=== PATIENT | male | born 1950 | race Two or more races ===

== ENCOUNTER 2021-01-28 21:15 | Observation (INO) | payer OTHER, MEDICARE ==
[~2021-01-28] VITALS: Ht 165.1 cm; Wt 73.6 kg
[2021-01-28 21:39] LABS: BASOPHILS # (AUTO) 0.1 X10'3 (0-0.2); BASOPHILS % (AUTO) 0.4 % (0-1); EOSINOPHILS # (AUTO) 0.5 X10'3 (0-0.9); EOSINOPHILS % (AUTO) 4.3 % (0-6); HEMATOCRIT 40.5 % (42.0-52.0); HEMOGLOBIN 13.8 g/dl (14.0-17.9); LYMPHOCYTES # (AUTO) 2.9 X10'3 (1.1-4.8); LYMPHOCYTES % (AUTO) 22.6 % (21-51); MEAN CORPUSCULAR HEMOGLOBIN 32.3 PG (27.0-31.0); MEAN CORPUSCULAR HGB CONC 34.1 g/dL (33.0-36.5); MEAN CORPUSCULAR VOLUME 94.6 FL (78-98); MEAN PLATELET VOLUME 9.5 FL (7.4-10.4); MONOCYTES # (AUTO) 1.4 X10'3 (0-0.9); MONOCYTES % (AUTO) 11.2 % (2-12); NEUTROPHILS # (AUTO) 7.8 X10'3 (1.8-7.7); NEUTROPHILS % (AUTO) 61.5 % (42-75); PLATELET COUNT 175 X10'3 (140-440); RED BLOOD COUNT 4.29 X10'6 (4.70-6.10); RED CELL DISTRIBUTION WIDTH 13.2 % (11.5-14.5); WHITE BLOOD COUNT 12.8 X10'3 (4.5-11.0)
[2021-01-28 21:47] LABS: ALANINE AMINOTRANSFERASE 18 U/L (12-78); ALBUMIN/GLOBULIN RATIO 1.1 (1.1-1.5); ALKALINE PHOSPHATASE 83 IU/L (46-116); ANION GAP 11 (8-16); ASPARTATE AMINO TRANSFERASE 19 U/L (10-37); BILIRUBIN,TOTAL 0.5 MG/DL (0.1-1.0); BLOOD UREA NITROGEN 14 MG/DL (7-18); BUN/CREATININE RATIO 14.6 (5.4-32.0); CALCIUM 8.8 MG/DL (8.5-10.1); CHLORIDE 104 MMOL/L (99-107); CREATININE 0.96 MG/DL (0.60-1.10); GLUCOSE 215 MG/DL (70-104); POTASSIUM 3.4 MMOL/L (3.5-5.1); SODIUM 141 MMOL/L (135-145); TOTAL CARBON DIOXIDE 25.6 MMOL/L (24-32); TOTAL PROTEIN 7.6 G/DL (6.4-8.2); eGFR 77 ML/MIN
[2021-01-28] MEDS ORDERED: METF-900 PO (22:54)
[2021-01-28 22:57] LABS: ETHANOL < 0.010 GM/DL (0.0-0.010)
[2021-01-28] MEDS ORDERED: ALOG1TAB4 PO (23:25)
[2021-01-28] MEDS ORDERED: FLO0.4C PO (23:25)
[2021-01-28] MEDS ORDERED: LISI20TA28 PO (23:25)
[2021-01-28] MEDS ORDERED: SIMV-45 PO (23:25)
[2021-01-28] MEDS ORDERED: ACAR100T PO (23:25)
[2021-01-28 23:26] LABS: URINE AMPHETAMINE SCREEN NEGATIVE (Neg); URINE BARBITUATE SCREEN NEGATIVE (Neg); URINE BENZODIAZEPINES SCREEN NEGATIVE (Neg); URINE CANNABINOID SCREEN NEGATIVE (Neg); URINE COCAINE SCREEN NEGATIVE (Neg); URINE METHADONE SCREEN NEGATIVE (Neg); URINE OPIATE SCREEN NEGATIVE (Neg); URINE PHENCYCLIDINE SCREEN NEGATIVE (Neg)
[2021-01-29] MEDS ORDERED: ondansetron/PF 4mg/2ml inj IV PRN (00:25)
[2021-01-29] MEDS ORDERED: magnesium hydroxide 30ml (MOM) UD suspension PO PRN (00:25)
[2021-01-29] MEDS ORDERED: potassium Cl 20 mEq SR tablet PO PRN ×2 (00:25)
[2021-01-29] MEDS ORDERED: mag hydrox/Alum hydrox/simeth 30ml oral suspension PO PRN (00:25)
[2021-01-29] MEDS ORDERED: dextrose 50%-water 50ml dispensing syringe IV PRN ×2 (00:30)
[2021-01-29] MEDS ORDERED: insulin Lispro (HumaLOG) vial - multi-dose SQ SCH (00:30)
[2021-01-29] MEDS ORDERED: MESSAGE TO PHARMACY PO ONE (00:30)
[2021-01-29] MEDS ORDERED: dextrose ORAL solution 15 GM/59 ML bottle PO PRN ×2 (00:30)
[2021-01-29] MEDS ORDERED: glucagon, human recombinant 1mg kit SUBCUT PRN (00:30)
[2021-01-29 01:27] LABS: HEMOGLOBIN A1C 9.5 % (4.5-6.2)
[2021-01-29] MEDS: acarbose 50mg tablet PO SCH ×2 (07:37→16:30)
[2021-01-29] MEDS: heparin, porcine 5000 units/ml vial SQ SCH ×2 (07:37→20:59)
[2021-01-29] MEDS ORDERED: lisinopril 20mg tablet PO SCH (08:00)
[2021-01-29] MEDS ORDERED: tamsulosin 0.4mg capsule PO SCH (08:00)
[2021-01-29] MEDS: K and/or MAG REPLACEMENT MC SCH ×2 (08:01→18:43)
[2021-01-29] MEDS: acetaminophen 325mg tablet PO PRN (11:46)
--- NOTE | 2021-01-29 12:40 | NUR ---
to CT Addendum: 01/29/21 at 1241 by TDIATTE to MRI
--- NOTE | 2021-01-29 15:49 | NUR ---
Dr. Junior paged to notify about pt's hypotension. Patient states he was dizzy when ambulating to bathroom but lying in bed he is asymptomatic.
--- NOTE | 2021-01-29 16:00 | NUR ---
Dr. Junior paged for BP 78/37
--- NOTE | 2021-01-29 16:04 | NUR ---
Dr. Junior updated. Orders to give NS bolus.
[2021-01-29] MEDS ORDERED: normal saline 1000ml 1,000 ML IV ONE ×2 (16:15→18:10)
--- NOTE | 2021-01-29 18:08 | NUR ---
DR. BRUSH CALLED FOR HYPOTENSION. ORDERS TO GIVE 500 ML NS BOLUS. STOP ZESTRIL AND FLOMAX.
--- NOTE | 2021-01-29 18:30 | NUR ---
Attempted to call report, phone not answered.
[2021-01-29 19:20] VITALS: BP 106/53
[2021-01-29 19:45] LABS: BASOPHILS % (AUTO) 0.6 % (0-1); EOSINOPHILS # (AUTO) 0.4 X10'3 (0-0.9); EOSINOPHILS % (AUTO) 5.6 % (0-6); HEMATOCRIT 38.3 % (42.0-52.0); HEMOGLOBIN 13.1 g/dl (14.0-17.9); LYMPHOCYTES # (AUTO) 2.1 X10'3 (1.1-4.8); LYMPHOCYTES % (AUTO) 28.7 % (21-51); MEAN CORPUSCULAR HEMOGLOBIN 32.4 PG (27.0-31.0); MEAN CORPUSCULAR HGB CONC 34.3 g/dL (33.0-36.5); MEAN CORPUSCULAR VOLUME 94.5 FL (78-98); MEAN PLATELET VOLUME 8.8 FL (7.4-10.4); MONOCYTES # (AUTO) 0.7 X10'3 (0-0.9); MONOCYTES % (AUTO) 10.2 % (2-12); NEUTROPHILS % (AUTO) 54.9 % (42-75); PLATELET COUNT 165 X10'3 (140-440); RED BLOOD COUNT 4.05 X10'6 (4.70-6.10); RED CELL DISTRIBUTION WIDTH 13.2 % (11.5-14.5); WHITE BLOOD COUNT 7.3 X10'3 (4.5-11.0)
[2021-01-29] MEDS: normal saline 1000ml 1,000 ML IV SCH (21:00)
[2021-01-29] MEDS ORDERED: atorvastatin 20mg tablet PO SCH (21:00)
[2021-01-29 22:00] VITALS: BP 101/47
[2021-01-30 02:00] VITALS: BP 101/47
[2021-01-30 03:26] VITALS: BP 112/58
[2021-01-30] MEDS: normal saline 1000ml 1,000 ML IV SCH (04:40)
[2021-01-30 05:55] LABS: BASOPHILS % (AUTO) 0.6 % (0-1); EOSINOPHILS # (AUTO) 0.5 X10'3 (0-0.9); EOSINOPHILS % (AUTO) 7.3 % (0-6); HEMATOCRIT 36.6 % (42.0-52.0); HEMOGLOBIN 12.4 g/dl (14.0-17.9); LYMPHOCYTES # (AUTO) 2.3 X10'3 (1.1-4.8); LYMPHOCYTES % (AUTO) 33.3 % (21-51); MEAN CORPUSCULAR VOLUME 97.2 FL (78-98); MEAN PLATELET VOLUME 9.7 FL (7.4-10.4); MONOCYTES # (AUTO) 0.7 X10'3 (0-0.9); MONOCYTES % (AUTO) 10.7 % (2-12); NEUTROPHILS # (AUTO) 3.3 X10'3 (1.8-7.7); NEUTROPHILS % (AUTO) 48.1 % (42-75); PLATELET COUNT 158 X10'3 (140-440); RED BLOOD COUNT 3.77 X10'6 (4.70-6.10); RED CELL DISTRIBUTION WIDTH 13.1 % (11.5-14.5); WHITE BLOOD COUNT 6.8 X10'3 (4.5-11.0)
[2021-01-30 06:00] VITALS: BP 117/55
[2021-01-30 06:14] LABS: ALANINE AMINOTRANSFERASE 18 U/L (12-78); ALKALINE PHOSPHATASE 73 IU/L (46-116); ANION GAP 9 (8-16); ASPARTATE AMINO TRANSFERASE 19 U/L (10-37); BILIRUBIN,TOTAL 0.2 MG/DL (0.1-1.0); CALCIUM 7.6 MG/DL (8.5-10.1); CHLORIDE 109 MMOL/L (99-107); CHOL/HDL RATIO 2.9 (0.00-4.99); CHOLESTEROL 97 MG/DL (0-200); CREATININE 0.97 MG/DL (0.60-1.10); GLUCOSE 203 MG/DL (70-104); HDL CHOLESTEROL 34 MG/DL (35-60); LDL CHOLESTEROL 46 MG/DL (50-100); POTASSIUM 4.3 MMOL/L (3.5-5.1); SODIUM 143 MMOL/L (135-145); TOTAL CARBON DIOXIDE 25.4 MMOL/L (24-32); TRIGLYCERIDES 80 MG/DL (20-135); eGFR 76 ML/MIN
[2021-01-30 06:20] LABS: BLOOD UREA NITROGEN 18 MG/DL (7-18); BUN/CREATININE RATIO 18.6 (5.4-32.0)
--- NOTE | 2021-01-30 06:22 | NUR ---
REPORT GIVEN TO GAUTAM KO.
[2021-01-30] MEDS: acetaminophen 325mg tablet PO PRN (07:21)
[2021-01-30] MEDS: K and/or MAG REPLACEMENT MC SCH (07:49)
[2021-01-30] MEDS ORDERED: CefTRIAXone 2gm/D5W 50ml BAG 50 ML IV SCH (08:00)
[2021-01-30] MEDS: heparin, porcine 5000 units/ml vial SQ SCH (08:24)
--- NOTE | 2021-01-30 12:47 | NUR ---
tele dc'd for discharge
== END 2021-01-30 13:46 | disposition home health service (06) ==
LOC: ER 21:16 → ED HOLD 01-29 00:21 → ORTHO 4S 01-29 19:00
PROVIDERS: ADMIT Internal Medicine; ATTEND Internal Medicine
DX: R55 Syncope and collapse (principal); I95.1 Orthostatic hypotension; E11.9 Type 2 diabetes mellitus without complications; E87.6 Hypokalemia; N40.0 Benign prostatic hyperplasia without lower urinary tract symptoms; I10 Essential (primary) hypertension; I35.2 Nonrheumatic aortic (valve) stenosis with insufficiency; D72.829 Elevated white blood cell count, unspecified; F17.200 Nicotine dependence, unspecified, uncomplicated; Z86.73 Personal history of transient ischemic attack (TIA), and cerebral infarction without residual deficits; Z79.4 Long term (current) use of insulin; Z79.899 Other long term (current) drug therapy
CPT/HCPCS: 36415; 70450; 70544; 70551; 71045; 80053; 80061; 80305; 80320; 82948; 83036; 83605; 83880; 84145; 84484; 85025; 87040; 87081; 92508; 92616; 93005; 93306; 93880; 96361; 96365; 96372; 97161; 99285; G0378; J0696; J1644; J1815; J7030

== ENCOUNTER → 2021-08-25 | Emergency (ER) | payer OTHER ==
[~2021-08-25] VITALS: Ht 165.1 cm; Wt 62.7 kg
[~2021-08-25] MED LIST: ACAR100T PO; ALOG1TAB4 PO; FLO0.4C PO; METF-900 PO; NALO4SPR BOTHNARES; SIMV-45 PO
[2021-08-25 22:37] LABS: BASOPHILS % (AUTO) 0.3 % (0-1); EOSINOPHILS % (AUTO) 0.3 % (0-6); HEMATOCRIT 44.4 % (42.0-52.0); HEMOGLOBIN 15.6 g/dl (14.0-17.9); LYMPHOCYTES # (AUTO) 1.3 X10'3 (1.1-4.8); LYMPHOCYTES % (AUTO) 11.5 % (21-51); MEAN CORPUSCULAR HEMOGLOBIN 32.5 PG (27.0-31.0); MEAN CORPUSCULAR HGB CONC 35.2 g/dL (33.0-36.5); MEAN CORPUSCULAR VOLUME 92.5 FL (78-98); MEAN PLATELET VOLUME 9.2 FL (7.4-10.4); MONOCYTES # (AUTO) 0.9 X10'3 (0-0.9); MONOCYTES % (AUTO) 7.5 % (2-12); NEUTROPHILS # (AUTO) 9.4 X10'3 (1.8-7.7); NEUTROPHILS % (AUTO) 80.4 % (42-75); PLATELET COUNT 171 X10'3 (140-440); RED CELL DISTRIBUTION WIDTH 13.2 % (11.5-14.5); WHITE BLOOD COUNT 11.7 X10'3 (4.5-11.0)
[2021-08-25 22:52] LABS: ALANINE AMINOTRANSFERASE 21 U/L (12-78); ALBUMIN 3.9 G/DL (3.4-5.0); ALBUMIN/GLOBULIN RATIO 1.1 (1.1-1.5); ALKALINE PHOSPHATASE 94 IU/L (46-116); ANION GAP 12 (8-16); ASPARTATE AMINO TRANSFERASE 16 U/L (10-37); BILIRUBIN,TOTAL 0.6 MG/DL (0.1-1.0); BLOOD UREA NITROGEN 17 MG/DL (7-18); BUN/CREATININE RATIO 19.1 (5.4-32.0); CALCIUM 8.4 MG/DL (8.5-10.1); CHLORIDE 104 MMOL/L (99-107); CREATININE 0.89 MG/DL (0.60-1.10); GLUCOSE 287 MG/DL (70-104); POTASSIUM 4.6 MMOL/L (3.5-5.1); SODIUM 143 MMOL/L (135-145); TOTAL CARBON DIOXIDE 26.6 MMOL/L (24-32); TOTAL PROTEIN 7.5 G/DL (6.4-8.2); eGFR 84 ML/MIN
[2021-08-25 23:00] LABS: ETHANOL < 0.010 GM/DL (0.0-0.010)
[2021-08-25 23:19] LABS: URINE AMPHETAMINE SCREEN NEGATIVE (Neg); URINE BARBITUATE SCREEN NEGATIVE (Neg); URINE BENZODIAZEPINES SCREEN NEGATIVE (Neg); URINE CANNABINOID SCREEN NEGATIVE (Neg); URINE COCAINE SCREEN NEGATIVE (Neg); URINE METHADONE SCREEN NEGATIVE (Neg); URINE OPIATE SCREEN NEGATIVE (Neg); URINE PHENCYCLIDINE SCREEN NEGATIVE (Neg)
[2021-08-26 00:28] VITALS: BP 115/72
== END | disposition home or self-care (01) ==
LOC: ER 22:08
DX: T40.411A Poisoning by fentanyl or fentanyl analogs, accidental (unintentional), initial encounter (principal); R55 Syncope and collapse; Y92.89 Other specified places as the place of occurrence of the external cause; I10 Essential (primary) hypertension; E11.9 Type 2 diabetes mellitus without complications; Z72.89 Other problems related to lifestyle; Z86.73 Personal history of transient ischemic attack (TIA), and cerebral infarction without residual deficits; Z79.899 Other long term (current) drug therapy
CPT/HCPCS: 36415; 71045; 80053; 80305; 80320; 83880; 84484; 85025; 93005; 99285

== ENCOUNTER 2022-02-17 23:18 | Inpatient (IN) | payer OTHER ==
[~2022-02-17] VITALS: Ht 165.1 cm; Wt 70.0 kg
[2022-02-17] MEDS ORDERED: ondansetron/PF 4mg/2ml inj IV ONE (23:45)
[2022-02-17] MEDS ORDERED: normal saline 1000ML IV soln IVB ONE (23:45)
--- NOTE | 2022-02-18 | NUR ---
Pt pink, no acute/resp distress. Bed in lowest position, wheels locked, rail 2/2 up. Pt laying supine. Pt able to reposition self prn. Will continue to monitor for acute changes and needs. Pt trying to void for ua spec.
--- NOTE | 2022-02-18 00:25 | NUR ---
Pt pink, no acute/resp distress. Bed in lowest position, wheels locked, rail 2/2 up. Pt laying supine. Pt able to reposition self prn. Will continue to monitor for acute changes and needs. Updated spouse on the phone.
[2022-02-18 00:39] LABS: ALANINE AMINOTRANSFERASE 103 U/L (12-78); ALBUMIN 3.7 G/DL (3.4-5.0); ALBUMIN/GLOBULIN RATIO 1.1 (1.1-1.5); ALKALINE PHOSPHATASE 77 IU/L (46-116); ANION GAP 11 (8-16); ASPARTATE AMINO TRANSFERASE 83 U/L (10-37); BILIRUBIN,TOTAL 0.4 MG/DL (0.1-1.0); BLOOD UREA NITROGEN 25 MG/DL (7-18); BUN/CREATININE RATIO 18.9 (5.4-32.0); CALCIUM 8.6 MG/DL (8.5-10.1); CHLORIDE 102 MMOL/L (99-107); CREATININE 1.32 MG/DL (0.60-1.10); GLUCOSE 197 MG/DL (70-104); POTASSIUM 3.6 MMOL/L (3.5-5.1); SODIUM 139 MMOL/L (135-145); TOTAL CARBON DIOXIDE 25.8 MMOL/L (24-32); eGFR 53 ML/MIN
[2022-02-18 00:41] LABS: LIPASE 293 U/L (73-393)
[2022-02-18 00:43] LABS: BASOPHILS % (AUTO) 0.2 % (0-1); EOSINOPHILS # (AUTO) 0.4 X10'3 (0-0.9); EOSINOPHILS % (AUTO) 2.4 % (0-6); ETHANOL < 0.010 GM/DL (0.0-0.010); HEMATOCRIT 36.4 % (42.0-52.0); HEMOGLOBIN 12.5 g/dl (14.0-17.9); LYMPHOCYTES # (AUTO) 1.7 X10'3 (1.1-4.8); LYMPHOCYTES % (AUTO) 9.7 % (21-51); MEAN CORPUSCULAR HEMOGLOBIN 33.8 PG (27.0-31.0); MEAN CORPUSCULAR HGB CONC 34.5 g/dL (33.0-36.5); MEAN CORPUSCULAR VOLUME 98.1 FL (78-98); MEAN PLATELET VOLUME 9.6 FL (7.4-10.4); MONOCYTES # (AUTO) 1.3 X10'3 (0-0.9); MONOCYTES % (AUTO) 7.1 % (2-12); NEUTROPHILS # (AUTO) 14.3 X10'3 (1.8-7.7); NEUTROPHILS % (AUTO) 80.6 % (42-75); PLATELET COUNT 168 X10'3 (140-440); RED BLOOD COUNT 3.71 X10'6 (4.70-6.10); RED CELL DISTRIBUTION WIDTH 13.5 % (11.5-14.5); WHITE BLOOD COUNT 17.8 X10'3 (4.5-11.0)
--- NOTE | 2022-02-18 01:30 | NUR ---
Pt pink, no acute/resp distress. Bed in lowest position, wheels locked, rail 2/2 up. Pt laying supine. Pt able to reposition self prn. Will continue to monitor for acute changes and needs.
--- NOTE | 2022-02-18 02:27 | NUR ---
Pt pink, no acute/resp distress. Bed in lowest position, wheels locked, rail 2/2 up. Pt laying supine. Pt able to reposition self prn. Will continue to monitor for acute changes and needs. 50cc grossly clear yellow urine collected, labeled, walked to lab. Pt taty. well remained pink.
[2022-02-18 02:29] LABS: CLARITY,URINE CLEAR (Clear); COLOR,URINE YELLOW (Yellow); GLUCOSE, URINE 250 mg/dl (Neg); KETONES,URINE NEGATIVE (Neg); LEUKOCYTE ESTERASE ,URINE NEGATIVE (Neg); NITRITES, URINE NEGATIVE (Neg); OCCULT BLOOD,URINE NEGATIVE (Neg); PH,URINE 5.5 (4.8-8.0); PROTEIN,URINE NEGATIVE (Neg); UROBILINOGEN,URINE 0.2 E.U/dL (0.2-1.0)
[2022-02-18 02:30] LABS: UA COLLECTION TYPE CLN CATCH MIDSTREAM
[2022-02-18 02:40] LABS: URINE AMPHETAMINE SCREEN NEGATIVE (Neg); URINE BARBITUATE SCREEN NEGATIVE (Neg); URINE BENZODIAZEPINES SCREEN NEGATIVE (Neg); URINE CANNABINOID SCREEN NEGATIVE (Neg); URINE COCAINE SCREEN NEGATIVE (Neg); URINE METHADONE SCREEN NEGATIVE (Neg); URINE OPIATE SCREEN NEGATIVE (Neg); URINE PHENCYCLIDINE SCREEN NEGATIVE (Neg)
[2022-02-18] MEDS ORDERED: azithromycin/NS 500mg/250ml 250 ML IV ONE (03:15)
[2022-02-18] MEDS ORDERED: cefTRIAXone 1g/NS 100ml IVPB 100 ML IV ONE (03:15)
--- NOTE | 2022-02-18 03:30 | NUR ---
Pt voided ~ 500 grossly clear yellow urine. Pt pink, alert, no acute/resp distress. PIV sites c/d/i s complication or adverse reaction. No ectopic beats observed on ECG.
[2022-02-18] MEDS ORDERED: morphine 2 MG/ML inj. syringe IV PRN ×2 (03:35)
[2022-02-18] MEDS: normal saline 1000ml 1,000 ML IV SCH ×2 (03:35→13:35)
[2022-02-18] MEDS ORDERED: POTASSIUM BICARB 20meq eff tab 20 MEQ TABLET.EFF PO PRN ×2 (03:35)
[2022-02-18] MEDS ORDERED: ondansetron/PF 4mg/2ml inj IV PRN (03:35)
[2022-02-18] MEDS ORDERED: magnesium 2GM in 50ml NS 50 ML IV PRN (03:35)
[2022-02-18] MEDS ORDERED: HYDROcodone/acetaminophen 10/325mg tab PO PRN (03:35)
[2022-02-18] MEDS ORDERED: acetaminophen 325mg tablet PO PRN (03:35)
[2022-02-18] MEDS ORDERED: magnesium 4gm in 100ml NS 100 ML IV PRN (03:35)
[2022-02-18] MEDS ORDERED: bisacodyl 10mg suppository rectal RC PRN (03:35)
[2022-02-18] MEDS ORDERED: potassium CL 10mEq/100ml bag 100 ML IV PRN (03:35)
[2022-02-18] MEDS ORDERED: magnesium Cl slow-release 64mg tablet PO PRN (03:35)
[2022-02-18] MEDS ORDERED: HYDROcodone/acetaminophen 5mg/325mg tablet PO PRN (03:35)
[2022-02-18] MEDS ORDERED: dextrose 50%-water 50ml dispensing syringe IV PRN ×2 (03:40)
[2022-02-18] MEDS ORDERED: MESSAGE TO PHARMACY PO ONE (03:40)
[2022-02-18] MEDS ORDERED: DEXTROSE 15 GM of carb/4 tabs (each vial/BOTTLE has 4 tablets) PO PRN ×2 (03:40)
[2022-02-18] MEDS ORDERED: glucagon, human recombinant 1mg kit SUBCUT PRN (03:40)
[2022-02-18] MEDS ORDERED: insulin Lispro (HumaLOG) vial - multi-dose SQ SCH (03:40)
--- NOTE | 2022-02-18 04:51 | NUR ---
Pt pink, no acute/resp distress. Bed in lowest position, wheels locked, rail 2/2 up. Pt laying supine. Pt able to reposition self prn. Will continue to monitor for acute changes and needs. PIV site c/d/i s complication. Covid swab collected, labeled and walke to lab.
[2022-02-18 05:13] LABS: HEMOGLOBIN A1C 6.9 % (4.5-6.2)
--- NOTE | 2022-02-18 05:47 | NUR ---
Pt pink, no acute/resp distress. Bed in lowest position, wheels locked, rail 2/2 up. Pt laying left side. Pt able to reposition self prn. Will continue to monitor for acute changes and needs.
--- NOTE | 2022-02-18 06:20 | NUR ---
Pt pink, no acute/resp distress. Bed in lowest position, wheels locked, rail 2/2 up. Pt laying supine. Pt able to reposition self prn. Will continue to monitor for acute changes and needs. Handoff report to dayshift RN.
--- NOTE | 2022-02-18 06:42 | NUR ---
Report given to GAUTAM Hernandez in PCU.
[2022-02-18 07:00] VITALS: BP 138/64
--- NOTE | 2022-02-18 07:30 | NUR ---
Pt. arrived from floor ER; Report received from Martin FLOREZ; Pt. ambulatory and able to get to and from restroom; Pt. given incentive spirometer and educated on how to use, pt able to demonstrate use. Pt. safe and stable. [facility]
[2022-02-18] MEDS: heparin, porcine 5000 units/ml vial SQ SCH ×2 (07:41→20:18)
[2022-02-18] MEDS: acetaminophen 325mg tablet PO PRN ×2 (07:55→17:42)
[2022-02-18] MEDS: K and/or MAG REPLACEMENT MC SCH ×2 (08:00→20:00)
[2022-02-18 08:19] LABS: CREATINE KINASE 491 U/L (39-308)
[2022-02-18 10:02] LABS: BASOPHILS % (AUTO) 0.1 % (0-1); EOSINOPHILS # (AUTO) 0.1 X10'3 (0-0.9); EOSINOPHILS % (AUTO) 0.9 % (0-6); HEMATOCRIT 36.5 % (42.0-52.0); HEMOGLOBIN 12.5 g/dl (14.0-17.9); LYMPHOCYTES # (AUTO) 1.5 X10'3 (1.1-4.8); LYMPHOCYTES % (AUTO) 14.9 % (21-51); MEAN CORPUSCULAR HEMOGLOBIN 33.2 PG (27.0-31.0); MEAN CORPUSCULAR HGB CONC 34.2 g/dL (33.0-36.5); MEAN CORPUSCULAR VOLUME 97.3 FL (78-98); MEAN PLATELET VOLUME 10.1 FL (7.4-10.4); MONOCYTES # (AUTO) 0.9 X10'3 (0-0.9); NEUTROPHILS # (AUTO) 7.7 X10'3 (1.8-7.7); NEUTROPHILS % (AUTO) 75.1 % (42-75); PLATELET COUNT 164 X10'3 (140-440); RED BLOOD COUNT 3.75 X10'6 (4.70-6.10); RED CELL DISTRIBUTION WIDTH 13.3 % (11.5-14.5); WHITE BLOOD COUNT 10.2 X10'3 (4.5-11.0)
[2022-02-18 11:00] VITALS: BP 97/61
[2022-02-18 15:00] VITALS: BP 107/50
--- NOTE | 2022-02-18 18:08 | NUR ---
Problems reprioritized. Patient report given, questions answered & plan of care reviewed with GAUTAM Mejia []. Addendum: 02/18/22 at 1821 by Shruti Chacon RN Problems reprioritized. Patient report given, questions answered & plan of care reviewed with GAUTAM Restrepo
[2022-02-18 18:50] VITALS: BP 122/55
[2022-02-18] MEDS ORDERED: atorvastatin 20mg tablet PO SCH (21:00)
[2022-02-18] MEDS ORDERED: insulin glargine (Lantus) pen - multi-dose SQ SCH (21:00)
[2022-02-18 22:00] VITALS: BP 109/46
[2022-02-19] MEDS: normal saline 1000ml 1,000 ML IV SCH ×2 (00:03→09:16)
[2022-02-19 02:00] VITALS: BP 131/59
[2022-02-19] MEDS ORDERED: CefTRIAXone 2gm/NS 100ml IVPB 100 ML IV SCH (02:00)
[2022-02-19] MEDS ORDERED: azithromycin/NS 500mg/250ml 250 ML IV SCH (03:00)
--- NOTE | 2022-02-19 06:10 | NUR ---
Patient in room PCU 3013. I have received report from Lauro FLOREZ and had the opportunity to ask questions and assume patient care.
[2022-02-19 07:00] VITALS: BP 124/53
--- NOTE | 2022-02-19 07:14 | NUR ---
Problems reprioritized. Patient report given, questions answered & plan of care reviewed with DOMINGO FLOREZ . Addendum: 02/19/22 at 0715 by Billy Kam RN Amended: Links added.
[2022-02-19 07:29] LABS: BASOPHILS % (AUTO) 0.2 % (0-1); EOSINOPHILS # (AUTO) 0.2 X10'3 (0-0.9); EOSINOPHILS % (AUTO) 1.5 % (0-6); HEMATOCRIT 33.8 % (42.0-52.0); HEMOGLOBIN 11.8 g/dl (14.0-17.9); LYMPHOCYTES # (AUTO) 1.5 X10'3 (1.1-4.8); MEAN CORPUSCULAR HEMOGLOBIN 33.6 PG (27.0-31.0); MEAN CORPUSCULAR HGB CONC 34.8 g/dL (33.0-36.5); MEAN CORPUSCULAR VOLUME 96.6 FL (78-98); MEAN PLATELET VOLUME 9.5 FL (7.4-10.4); MONOCYTES % (AUTO) 9.3 % (2-12); NEUTROPHILS # (AUTO) 8.2 X10'3 (1.8-7.7); PLATELET COUNT 151 X10'3 (140-440); WHITE BLOOD COUNT 10.9 X10'3 (4.5-11.0)
[2022-02-19] MEDS: heparin, porcine 5000 units/ml vial SQ SCH (07:41)
[2022-02-19 07:47] LABS: ALANINE AMINOTRANSFERASE 52 U/L (12-78); ALBUMIN 3.2 G/DL (3.4-5.0); ALKALINE PHOSPHATASE 64 IU/L (46-116); ANION GAP 9 (8-16); ASPARTATE AMINO TRANSFERASE 30 U/L (10-37); BILIRUBIN,TOTAL 0.3 MG/DL (0.1-1.0); BLOOD UREA NITROGEN 14 MG/DL (7-18); BUN/CREATININE RATIO 14.9 (5.4-32.0); CALCIUM 7.9 MG/DL (8.5-10.1); CHLORIDE 107 MMOL/L (99-107); CHOL/HDL RATIO 1.9 (0.00-4.99); CHOLESTEROL 75 MG/DL (0-200); CREATININE 0.94 MG/DL (0.60-1.10); GLUCOSE 130 MG/DL (70-104); HDL CHOLESTEROL 40 MG/DL (35-60); LDL CHOLESTEROL 24 MG/DL (50-100); POTASSIUM 4.3 MMOL/L (3.5-5.1); SODIUM 140 MMOL/L (135-145); TOTAL CARBON DIOXIDE 24.4 MMOL/L (24-32); TOTAL PROTEIN 6.4 G/DL (6.4-8.2); TRIGLYCERIDES 60 MG/DL (20-135); eGFR 79 ML/MIN
[2022-02-19] MEDS ORDERED: tamsulosin 0.4mg capsule PO SCH (08:00)
[2022-02-19] MEDS: K and/or MAG REPLACEMENT MC SCH (08:00)
[2022-02-19] MEDS ORDERED: METF-900 PO (09:58)
[2022-02-19] MEDS ORDERED: LEVO500T90 PO (10:00)
[2022-02-19 11:00] VITALS: BP 127/59
--- NOTE | 2022-02-19 11:48 | NUR ---
Pt to be discharged after working with pt. RN walked pt around the unit. PT came and did a formal evaluation and walked pt around the unit as well. RN called family number in the chart and got voicemail and left a message. Ask patient for any other number. Called the number's patient provided. Updated case management that RN is unable to make contact with family.
--- NOTE | 2022-02-19 12:45 | NUR ---
Case management able to locate number for family. Pt discharged. IV's and tele box removed. Tele box returned to rn telemetry. Pt escorted out via wheelchair and discharge instructions given to Pt and Pt's son. Pt was handed a hard [facility] Pt and son given discharge instructions and verbalizes understanding. Pt's son signed the paperwork understanding the plan of care.
== END 2022-02-19 12:40 | disposition home or self-care (01) | DRG 871 ==
LOC: ER 23:19 → ED HOLD 02-18 03:37 → PCU 3S 02-18 08:19
PROVIDERS: ADMIT Internal Medicine; ATTEND Internal Medicine
DX: A41.9 Sepsis, unspecified organism (principal); I46.9 Cardiac arrest, cause unspecified; J18.9 Pneumonia, unspecified organism; Z20.822 Contact with and (suspected) exposure to COVID-19; E11.9 Type 2 diabetes mellitus without complications; E78.5 Hyperlipidemia, unspecified; T38.3X5A Adverse effect of insulin and oral hypoglycemic [antidiabetic] drugs, initial encounter; F03.90 Unspecified dementia, unspecified severity, without behavioral disturbance, psychotic disturbance, mood disturbance, and anxiety; F17.210 Nicotine dependence, cigarettes, uncomplicated; I10 Essential (primary) hypertension; F11.90 Opioid use, unspecified, uncomplicated; Z86.73 Personal history of transient ischemic attack (TIA), and cerebral infarction without residual deficits; Z71.6 Tobacco abuse counseling; Y92.89 Other specified places as the place of occurrence of the external cause
CPT/HCPCS: 36415; 71045; 80053; 80061; 80305; 80320; 81003; 82550; 82948; 83036; 83605; 83690; 84145; 84484; 85025; 85610; 87040; 87077; 87081; 87186; 87635; 97161; 97530; 99285; G0378; J0456; J0696; J1644; J1815; J2405; J7030

== ENCOUNTER 2022-12-27 14:51 | Inpatient (IN) | payer OTHER, BC ==
[~2022-12-27] VITALS: Ht 172.7 cm; Wt 58.8 kg
[2022-12-27] VITALS (9 sets, daily range): BP systolic 76–112; BP diastolic 39–46
[~2022-12-27 14:51] MED LIST changes: -ACAR100T PO; -ALOG1TAB4 PO; -NALO4SPR BOTHNARES
--- NOTE | 2022-12-27 15:15 | NUR ---
rectal temp 91.[address] Murillo
[2022-12-27] MEDS ORDERED: LORazepam 2 mg/ml vial IV ONE (15:20)
[2022-12-27] MEDS ORDERED: normal saline 1000ML IV soln IV ONE (15:20)
[2022-12-27 15:27] LABS: ALBUMIN 3.3 G/DL (3.4-5.0); BILIRUBIN,TOTAL 0.3 MG/DL (0.1-1.0); BLOOD UREA NITROGEN 93 MG/DL (7-18); BUN/CREATININE RATIO 8.5 (5.4-32.0); CALCIUM 8.3 MG/DL (8.5-10.1); CHLORIDE 100 MMOL/L (99-107); CREATININE 10.99 MG/DL (0.60-1.10); SODIUM 141 MMOL/L (135-145); TOTAL PROTEIN 6.6 G/DL (6.4-8.2); eGFR 5 ML/MIN
[2022-12-27 15:28] LABS: ALANINE AMINOTRANSFERASE 17 U/L (12-78); ALKALINE PHOSPHATASE 72 IU/L (46-116); ASPARTATE AMINO TRANSFERASE 20 U/L (10-37)
[2022-12-27 15:34] LABS: BASOPHILS # (AUTO) 0.1 X10'3 (0-0.2); BASOPHILS % (AUTO) 0.3 % (0-1); EOSINOPHILS # (AUTO) 0.2 X10'3 (0-0.9); EOSINOPHILS % (AUTO) 0.8 % (0-6); LYMPHOCYTES # (AUTO) 5.1 X10'3 (1.1-4.8); LYMPHOCYTES % (AUTO) 26.6 % (21-51); MEAN PLATELET VOLUME 9.8 FL (7.4-10.4); MONOCYTES # (AUTO) 0.5 X10'3 (0-0.9); MONOCYTES % (AUTO) 2.4 % (2-12); NEUTROPHILS # (AUTO) 13.4 X10'3 (1.8-7.7); NEUTROPHILS % (AUTO) 69.9 % (42-75); PLATELET COUNT 214 X10'3 (140-440); WHITE BLOOD COUNT 19.2 X10'3 (4.5-11.0)
[2022-12-27] MEDS ORDERED: iohexol 350MG/ML 100ml bottle IV ONE (15:36)
[2022-12-27 15:38] LABS: ANION GAP 36 (8-16); GLUCOSE 132 MG/DL (70-104)
[2022-12-27 15:40] LABS: TOTAL CARBON DIOXIDE < 5 MMOL/L (24-32)
--- NOTE | 2022-12-27 15:58 | NUR ---
TEMP PROBE CLARK PLACED
[2022-12-27 16:01] LABS: HEMATOCRIT 30.3 % (42.0-52.0); HEMOGLOBIN 9.2 g/dl (14.0-17.9); MEAN CORPUSCULAR HEMOGLOBIN 29.5 PG (27.0-31.0); MEAN CORPUSCULAR HGB CONC 30.4 g/dL (33.0-36.5); MEAN CORPUSCULAR VOLUME 97.3 FL (78-98); RED BLOOD COUNT 3.11 X10'6 (4.70-6.10); RED CELL DISTRIBUTION WIDTH 13.5 % (11.5-14.5)
[2022-12-27 16:14] LABS: C-REACTIVE PROTEIN 4.09 MG/DL (0.0-0.5); MAGNESIUM 2.3 MG/DL (1.5-2.4)
[2022-12-27 16:24] LABS: ETHANOL < 0.010 GM/DL (0.0-0.010)
[2022-12-27 16:40] LABS: CLARITY,URINE CLOUDY (Clear); COLOR,URINE YELLOW (Yellow); GLUCOSE, URINE NEGATIVE (Neg); KETONES,URINE 15 mg/dl (Neg); LEUKOCYTE ESTERASE ,URINE NEGATIVE (Neg); NITRITES, URINE NEGATIVE (Neg); OCCULT BLOOD,URINE TRACE-INTACT (Neg); PROTEIN,URINE 100 mg/dl (Neg); UROBILINOGEN,URINE 0.2 E.U/dL (0.2-1.0)
[2022-12-27 16:53] LABS: URINE AMPHETAMINE SCREEN NEGATIVE (Neg); URINE BARBITUATE SCREEN NEGATIVE (Neg); URINE BENZODIAZEPINES SCREEN NEGATIVE (Neg); URINE COCAINE SCREEN NEGATIVE (Neg); URINE METHADONE SCREEN NEGATIVE (Neg); URINE OPIATE SCREEN NEGATIVE (Neg); URINE PHENCYCLIDINE SCREEN NEGATIVE (Neg)
[2022-12-27 16:54] LABS: SQUAMOUS EPITHELIAL CELL,UR MODERATE /LPF (FEW); TRANSITIONAL EPI CELLS,URINE MODERATE /HPF; UA COLLECTION TYPE FOLEY CATH
[2022-12-27 16:56] LABS: RENAL CELLS, URINE MODERATE /HPF
[2022-12-27 16:57] LABS: BACTERIA,URINE 1+ /HPF (Neg); RBC,URINE 0-2 /HPF (0-2); WBC,URINE 0-4 /HPF (0-4)
[2022-12-27 16:58] LABS: AMORPHOUS URATES 2+
[2022-12-27] MEDS ORDERED: sodium bicarbonate (8.4%) inj. 1 MEQ/ML ML IV ONE (17:07)
[2022-12-27] MEDS ORDERED: SODIUM BICARBONATE 150MEQ IN D5W 1,000 ML IV ONE (17:15)
[2022-12-27] MEDS ORDERED: propofol 10mg/ml 20ml vial IV PRN (17:15)
[2022-12-27] MEDS ORDERED: succinylcholine 20mg/ml inj IV ONE (17:15)
[2022-12-27] MEDS ORDERED: FENTANYL-0.9 % NACL/PF 100 ML IV PRN (17:15)
[2022-12-27] MEDS ORDERED: thiamine 100mg/ml 2ml inj. IM STA (17:23)
[2022-12-27 17:24] LABS: PLATELET ESTIMATE NORMAL; TOTAL CELLS COUNTED 100
[2022-12-27 17:25] LABS: BURR CELLS 2+
[2022-12-27] MEDS ORDERED: etomidate 2mg/ml inj. IV ONE (17:28)
[2022-12-27] MEDS ORDERED: propofol 10mg/ml 20ml vial IV ONE (17:28)
[2022-12-27] MEDS ORDERED: ondansetron/PF 4mg/2ml inj IV PRN (17:30)
[2022-12-27] MEDS ORDERED: acetaminophen 325mg tablet PO PRN ×2 (17:30)
[2022-12-27] MEDS ORDERED: magnesium hydroxide 30ml (MOM) UD suspension PO PRN (17:30)
[2022-12-27] MEDS ORDERED: LIDOcaine 2% 10ml TOPICAL JELLY (Urojet) TP ONE (17:30)
[2022-12-27] MEDS ORDERED: bisacodyl 10mg suppository rectal RC PRN (17:30)
[2022-12-27] MEDS ORDERED: fentaNYL/PF 50MCG/1 ML 2ML syringe IV ONE (17:33)
[2022-12-27] MEDS ORDERED: propofol 1000mg/100ml bottle 100 ML IV PRN (17:34)
[2022-12-27 17:41] LABS: PHOSPHORUS 10.1 MG/DL (2.3-4.5)
[2022-12-27 17:42] LABS: OSMOLALITY 346 MOSM/K (280-300)
[2022-12-27] MEDS: FENTANYL-0.9 % NACL/PF 100 ML IV PRN (17:46)
[2022-12-27 17:47] LABS: CREATINE KINASE 168 U/L (39-308)
[2022-12-27] MEDS ORDERED: mannitol 12.5gm/50mL VIAL IV ONE (18:40)
[2022-12-27] MEDS ORDERED: vancomycin/NS 1 GM ADD-VANTAGE 250 ML X 1 DOSE IV PRN (18:40)
[2022-12-27] MEDS ORDERED: heparin 1,000unit/ml 10ml vial 10 ML IV ONE (18:40)
[2022-12-27] MEDS ORDERED: EPOETIN ALFA-EPBX 20,000 UNIT/ML 1 ML MDV IV ONE (18:40)
[2022-12-27] MEDS ORDERED: normal saline 1000ml 250 ML IV PRN (18:40)
[2022-12-27] MEDS ORDERED: heparin 1,000 units/ml 10ml inj HE ONE ×2 (18:45)
[2022-12-27] MEDS ORDERED: vancomycin/NS 1 GM ADD-VANTAGE 250 ML X 1 DOSE IV ONE (18:45)
[2022-12-27 18:48] LABS: OXYGEN SATURATION (MIXED VEN) 85.1 % (60-80); PO2 MIXED VENOUS (TEMP COR) 57.2 mmHg (35-46)
[2022-12-27] MEDS ORDERED: NORepinephrine 8mg/ 250ml NS 250 ML IV ONE ×2 (19:03→21:34)
--- NOTE | 2022-12-27 19:18 | NUR ---
RECEIVED VERBAL ORDERS FROM DR CATES AND KIA WILLINGHAM TO TRANSPORT PT IMMEDIATELY TO ICU WITHOUT DELAY. DIRECT ORDERS TO STOP ALL TREATMENT AND TO GIVE BEDSIDE REPORT IN ICU. THEREFORE PT ARRIVED TO ICU WITHOUT ALL NEEDED TASKS FINISHED THIS RN REMAINED IN ICU TO HELP SETTLE PATIENT UNTIL ICU NURSES FELT COMFORTABLE DISMISSING THIS RN
--- NOTE | 2022-12-27 19:20 | NUR ---
Received Pt from ED prior to receiving report and preparing room for admit. ED nurse remained with pt to ensure safe transfer of critically ill pt.
[2022-12-27] MEDS ORDERED: piperacillin/tazo 3.375gm/50ml 50 ML IV SCH (20:00)
[2022-12-27 20:20] LABS: BASOPHILS # (AUTO) 0.1 X10'3 (0-0.2); BASOPHILS % (AUTO) 0.4 % (0-1); EOSINOPHILS # (AUTO) 0.3 X10'3 (0-0.9); EOSINOPHILS % (AUTO) 1.1 % (0-6); LYMPHOCYTES # (AUTO) 5.7 X10'3 (1.1-4.8); LYMPHOCYTES % (AUTO) 23.3 % (21-51); MEAN PLATELET VOLUME 9.9 FL (7.4-10.4); MONOCYTES # (AUTO) 2.8 X10'3 (0-0.9); MONOCYTES % (AUTO) 11.5 % (2-12); NEUTROPHILS # (AUTO) 15.6 X10'3 (1.8-7.7); NEUTROPHILS % (AUTO) 63.7 % (42-75); PLATELET COUNT 208 X10'3 (140-440); WHITE BLOOD COUNT 24.5 X10'3 (4.5-11.0)
[2022-12-27 20:35] LABS: D-DIMER 20.74 MG/L FEU (0-0.50)
--- NOTE | 2022-12-27 20:35 | NUR ---
Dialysis starting. Spoke to pt's . Updated on pt condition and plan of care.
[2022-12-27 20:45] LABS: HEMATOCRIT 25.2 % (42.0-52.0); HEMOGLOBIN 8.1 g/dl (14.0-17.9); MEAN CORPUSCULAR HEMOGLOBIN 29.4 PG (27.0-31.0); RED BLOOD COUNT 2.74 X10'6 (4.70-6.10)
[2022-12-27 20:46] LABS: ALANINE AMINOTRANSFERASE 17 U/L (12-78); ALBUMIN 3.1 G/DL (3.4-5.0); ALKALINE PHOSPHATASE 74 IU/L (46-116); ASPARTATE AMINO TRANSFERASE 33 U/L (10-37); BILIRUBIN,TOTAL 0.3 MG/DL (0.1-1.0); BLOOD UREA NITROGEN 96 MG/DL (7-18); BUN/CREATININE RATIO 8.9 (5.4-32.0); CALCIUM 7.9 MG/DL (8.5-10.1); CHLORIDE 101 MMOL/L (99-107); CREATININE 10.75 MG/DL (0.60-1.10); MAGNESIUM 2.5 MG/DL (1.5-2.4); POTASSIUM 5.4 MMOL/L (3.5-5.1); RED CELL DISTRIBUTION WIDTH 13.3 % (11.5-14.5); SODIUM 144 MMOL/L (135-145); TOTAL PROTEIN 6.2 G/DL (6.4-8.2); eGFR 5 ML/MIN
[2022-12-27 20:55] LABS: GLUCOSE 130 MG/DL (70-104); PHOSPHORUS 10.2 MG/DL (2.3-4.5)
[2022-12-27 20:56] LABS: ANION GAP 38 (8-16)
[2022-12-27 20:58] LABS: TOTAL CARBON DIOXIDE < 5 MMOL/L (24-32)
[2022-12-27 20:59] LABS: APTT 71 SECONDS (22-32)
[2022-12-27] MEDS ORDERED: mannitol 20% 500ml IV soln 500 ML IV ONE (21:10)
--- NOTE | 2022-12-27 21:35 | NUR ---
Change in LOC -Pt awake and following instructions. Nods appropriately to questions. Denies pain.
--- NOTE | 2022-12-27 21:45 | NUR ---
Communication -Called Dr. Mullins regarding hypotension. Orders received.
[2022-12-27] MEDS: vasopressin inj. 40 UNIT in normal saline 50ml IV soln 38 ML IV SCH (21:47)
[2022-12-27] MEDS: NORepinephrine inj. 32 MG in normal saline 250ml IV soln 218 ML IV SCH (22:08)
--- NOTE | 2022-12-27 22:40 | NUR ---
Communication -Called Dr. Mullins regarding hypotension and critical labs. Orders received.
[2022-12-27] MEDS ORDERED: VANCOMYCIN 1,500MG in normal saline IV soln 300 ML IV ONE (23:30)
[2022-12-27] MEDS: heparin, porcine 5000 units/ml vial SQ SCH (23:37)
[2022-12-28] VITALS (35 sets, daily range): BP systolic 82–126; BP diastolic 34–52
[2022-12-28] MEDS: piperacillin/tazo 3.375gm/50ml 50 ML IV SCH ×2 (01:19→13:15)
[2022-12-28] MEDS ORDERED: sodium bicarbonate (8.4%) 1 mEq/ml syringe IV ONE ×2 (01:20→01:35)
--- NOTE | 2022-12-28 01:20 | NUR ---
MD Communication -Called Dr. Mullins regarding hypotension and bradycardia. Orders received.
[2022-12-28 01:29] LABS: ABG BASE EXCESS -29.5 mmol/L (-2.0-2.0); ABG HCO3 2.9 mmol/L (22.0-26.0); ABG OXYGEN SATURATION 74.4 % (94-97); ABG PCO2 (T) 17.1 mmHg (35.0-48.0); ABG PO2 (T) 46.6 mmHg (75.0-100.0); ALLEN'S TEST Yes; FCOHb 0.3 % (0.0-3.9); FMetHb 0.4 % (0.0-1.5); FO2Hb 73.9 % (94-97); PATIENT TEMPERATURE 36.4; PEEP 5 cm H2O; RESPIRATORY RATE 24 b/min; TIDAL VOLUME 450 mL; TOTAL HEMOGLOBIN 10.2 G/dl (14.0-17.9)
[2022-12-28] MEDS ORDERED: sodium bicarbonate (8.4%) inj. 1 MEQ/ML ML ONE ×2 (01:32→01:38)
[2022-12-28] MEDS ORDERED: sodium bicarbonate (8.4%) inj. 150 MEQ in dextrose 5%-water 1,000 ML IV SCH (01:35)
[2022-12-28 01:36] LABS: BASOPHILS % (AUTO) 0.1 % (0-1); EOSINOPHILS % (AUTO) 0.1 % (0-6); HEMATOCRIT 28.9 % (42.0-52.0); LYMPHOCYTES # (AUTO) 1.8 X10'3 (1.1-4.8); LYMPHOCYTES % (AUTO) 6.7 % (21-51); MEAN CORPUSCULAR HEMOGLOBIN 31.3 PG (27.0-31.0); MEAN CORPUSCULAR HGB CONC 30.9 g/dL (33.0-36.5); MEAN CORPUSCULAR VOLUME 101.1 FL (78-98); MEAN PLATELET VOLUME 9.6 FL (7.4-10.4); MONOCYTES # (AUTO) 2.8 X10'3 (0-0.9); MONOCYTES % (AUTO) 10.4 % (2-12); NEUTROPHILS # (AUTO) 22.1 X10'3 (1.8-7.7); NEUTROPHILS % (AUTO) 82.7 % (42-75); PLATELET COUNT 193 X10'3 (140-440); RED BLOOD COUNT 2.86 X10'6 (4.70-6.10); RED CELL DISTRIBUTION WIDTH 14.2 % (11.5-14.5)
[2022-12-28 01:49] LABS: APTT 51 SECONDS (22-32); WHITE BLOOD COUNT 26.8 X10'3 (4.5-11.0)
--- NOTE | 2022-12-28 02:00 | NUR ---
Communication -Called Dr. Mullins regarding hypotension and critical labs. Orders received.
[2022-12-28 02:06] LABS: ALANINE AMINOTRANSFERASE 23 U/L (12-78); ALKALINE PHOSPHATASE 80 IU/L (46-116); ASPARTATE AMINO TRANSFERASE 46 U/L (10-37); BILIRUBIN,TOTAL 0.4 MG/DL (0.1-1.0); BLOOD UREA NITROGEN 69 MG/DL (7-18); BUN/CREATININE RATIO 9.1 (5.4-32.0); CALCIUM 7.5 MG/DL (8.5-10.1); CHLORIDE 98 MMOL/L (99-107); CREATININE 7.61 MG/DL (0.60-1.10); GLUCOSE 152 MG/DL (70-104); MAGNESIUM 1.9 MG/DL (1.5-2.4); PHOSPHORUS 8.4 MG/DL (2.3-4.5); POTASSIUM 5.7 MMOL/L (3.5-5.1); SODIUM 139 MMOL/L (135-145); TOTAL PROTEIN 6.1 G/DL (6.4-8.2); eGFR 7 ML/MIN
[2022-12-28 02:07] LABS: ANION GAP 36 (8-16)
[2022-12-28 02:20] LABS: PLATELET ESTIMATE NORMAL; TOTAL CELLS COUNTED 100
[2022-12-28 02:24] LABS: BURR CELLS 2+
[2022-12-28] MEDS: SODIUM BICARB 150mEq/D5W 1L 1,000 ML IV SCH ×4 (02:33→19:23)
[2022-12-28] MEDS ORDERED: albumin (human) 25% 100 ML IV solution IV ONE (03:30)
[2022-12-28] MEDS: albumin (Human) 5% 250ml 250 ML IV SCH ×7 (03:30→22:36)
--- NOTE | 2022-12-28 03:30 | NUR ---
Communication -Called Dr. Mullins regarding hypotension. Orders received.
[2022-12-28] MEDS ORDERED: albumin (Human) 5% 250ml 250 ML IV ONE (03:31)
[2022-12-28] MEDS: PHENYLephrine 10mg/ml inj. 50 MG in normal saline 250ml IV soln 245 ML IV PRN ×5 (04:29→23:14)
[2022-12-28 05:40] LABS: ALLEN'S TEST POSITIVE; PATIENT TEMPERATURE 32
[2022-12-28 05:41] LABS: ABG PCO2 (T) 15.7 mmHg (35.0-48.0); PEEP 5 cm H2O; RESPIRATORY RATE 24 b/min; RESPIRATORY RATE (OBSERVED) 30 b/min; TIDAL VOLUME 450 mL
[2022-12-28 05:42] LABS: ABG PO2 (T) 106.8 mmHg (75.0-100.0)
[2022-12-28 05:58] LABS: ALLEN'S TEST POSITIVE; PATIENT TEMPERATURE 32
[2022-12-28 06:00] LABS: ABG PCO2 (T) 11.6 mmHg (35.0-48.0); ABG PO2 (T) 131.3 mmHg (75.0-100.0)
[2022-12-28 06:01] LABS: TOTAL HEMOGLOBIN 10.4 G/dl (14.0-17.9)
[2022-12-28 06:02] LABS: FCOHb 0.2 % (0.0-3.9); FMetHb 0.4 % (0.0-1.5); FO2Hb 96.3 % (94-97)
[2022-12-28 06:03] LABS: ABG OXYGEN SATURATION 96.9 % (94-97)
[2022-12-28] MEDS: NORepinephrine inj. 32 MG in normal saline 250ml IV soln 218 ML IV SCH ×3 (06:31→17:49)
[2022-12-28] MEDS ORDERED: heparin 1,000unit/ml 10ml vial 10 ML IV ONE (06:50)
[2022-12-28] MEDS ORDERED: normal saline 1000ml 250 ML IV PRN (06:50)
[2022-12-28] MEDS ORDERED: EPOETIN ALFA-EPBX 20,000 UNIT/ML 1 ML MDV IV ONE (06:50)
[2022-12-28 06:54] LABS: BASOPHILS % (AUTO) 0.2 % (0-1); EOSINOPHILS % (AUTO) 0 % (0-6); HEMATOCRIT 27.1 % (42.0-52.0); HEMOGLOBIN 8.3 g/dl (14.0-17.9); LYMPHOCYTES # (AUTO) 1.1 X10'3 (1.1-4.8); LYMPHOCYTES % (AUTO) 5.9 % (21-51); MEAN CORPUSCULAR HEMOGLOBIN 31.5 PG (27.0-31.0); MEAN CORPUSCULAR HGB CONC 30.5 g/dL (33.0-36.5); MEAN CORPUSCULAR VOLUME 103.4 FL (78-98); MEAN PLATELET VOLUME 10.1 FL (7.4-10.4); MONOCYTES # (AUTO) 1.9 X10'3 (0-0.9); MONOCYTES % (AUTO) 9.7 % (2-12); NEUTROPHILS # (AUTO) 16.4 X10'3 (1.8-7.7); NEUTROPHILS % (AUTO) 84.2 % (42-75); PLATELET COUNT 159 X10'3 (140-440); RED BLOOD COUNT 2.62 X10'6 (4.70-6.10); RED CELL DISTRIBUTION WIDTH 14.5 % (11.5-14.5); WHITE BLOOD COUNT 19.5 X10'3 (4.5-11.0)
[2022-12-28] MEDS ORDERED: heparin 1,000 units/ml 10ml inj HE ONE ×2 (06:55)
--- NOTE | 2022-12-28 06:55 | NUR ---
Patient in room CICU 2013. I have received report from Mac RN and had the opportunity to ask questions and assume patient care.
[2022-12-28 06:57] LABS: FCOHb 0.3 % (0.0-3.9); FO2Hb 94.7 % (94-97); TOTAL HEMOGLOBIN 9.8 G/dl (14.0-17.9)
[2022-12-28 06:58] LABS: FMetHb 0.6 % (0.0-1.5)
[2022-12-28 06:59] LABS: ABG OXYGEN SATURATION 95.6 % (94-97)
[2022-12-28] MEDS: thiamine 100mg/ml 2ml inj. IV SCH (07:20)
[2022-12-28] MEDS: vasopressin inj. 40 UNIT in normal saline 50ml IV soln 38 ML IV SCH (07:20)
[2022-12-28] MEDS: heparin, porcine 5000 units/ml vial SQ SCH ×2 (07:21→19:21)
[2022-12-28 07:26] LABS: ALBUMIN 4.3 G/DL (3.4-5.0); ANION GAP 44 (8-16); BILIRUBIN,TOTAL 0.5 MG/DL (0.1-1.0); BLOOD UREA NITROGEN 70 MG/DL (7-18); BUN/CREATININE RATIO 8.9 (5.4-32.0); CHLORIDE 94 MMOL/L (99-107); CREATININE 7.88 MG/DL (0.60-1.10); GLUCOSE 266 MG/DL (70-104); MAGNESIUM 1.9 MG/DL (1.5-2.4); POTASSIUM 5.6 MMOL/L (3.5-5.1); SODIUM 143 MMOL/L (135-145); TOTAL PROTEIN 6.5 G/DL (6.4-8.2); eGFR 7 ML/MIN
[2022-12-28 07:27] LABS: ALANINE AMINOTRANSFERASE 22 U/L (12-78); ALKALINE PHOSPHATASE 60 IU/L (46-116); ASPARTATE AMINO TRANSFERASE 39 U/L (10-37)
[2022-12-28 07:40] LABS: PHOSPHORUS 9.1 MG/DL (2.3-4.5)
[2022-12-28 07:42] LABS: TOTAL CARBON DIOXIDE 5.5 MMOL/L (24-32)
[2022-12-28] MEDS: FENTANYL-0.9 % NACL/PF 100 ML IV PRN ×3 (07:44→19:28)
[2022-12-28] MEDS ORDERED: thiamine 100mg/ml 2ml inj. IM SCH (08:00)
[2022-12-28] MEDS ORDERED: etomidate 2mg/ml inj. ONE (08:00)
[2022-12-28] MEDS ORDERED: sod chloride 0.9% 10ml flush syringe IV ONE (08:00)
[2022-12-28] MEDS ORDERED: vancomycin/NS 1 GM ADD-VANTAGE 250 ML X 1 DOSE IV PRN (08:00)
[2022-12-28] MEDS ORDERED: pantoprazole 40MG/NS 100ML BAG 100 ML IV SCH (08:00)
[2022-12-28] MEDS ORDERED: sodium phosphate inj. 30 MMOL in normal saline 250ml IV soln 250 ML IV PRN (08:40)
[2022-12-28] MEDS ORDERED: calcium chloride inj. 1,000 MG in normal saline 100ml IV soln 100 ML IV PRN (08:40)
[2022-12-28 09:24] LABS: ABG BASE EXCESS -26.5 mmol/L (-2.0-2.0); ABG HCO3 3.7 mmol/L (22.0-26.0); ABG OXYGEN SATURATION 96.9 % (94-97); ABG PCO2 (T) 17.3 mmHg (35.0-48.0); ABG PO2 (T) 131.5 mmHg (75.0-100.0); ALLEN'S TEST Modified; FCOHb 0.2 % (0.0-3.9); FMetHb 0.3 % (0.0-1.5); FO2Hb 96.4 % (94-97); PEEP 5 cm H2O; RESPIRATORY RATE 24 b/min; TIDAL VOLUME 450 mL; TOTAL HEMOGLOBIN 9.3 G/dl (14.0-17.9)
[2022-12-28 10:24] LABS: BURR CELLS 1+; PLATELET ESTIMATE NORMAL; TOTAL CELLS COUNTED 100
[2022-12-28 10:25] LABS: LARGE PLATELETS FEW
[2022-12-28] MEDS ORDERED: MESSAGE TO PHARMACY PO ONE (10:25)
[2022-12-28] MEDS ORDERED: glucagon, human recombinant 1mg kit SUBCUT PRN (10:25)
[2022-12-28] MEDS ORDERED: dextrose 50%-water 50ml dispensing syringe IV PRN ×2 (10:25)
[2022-12-28] MEDS ORDERED: DEXTROSE 15 GM of carb/4 tabs (each vial/BOTTLE has 4 tablets) PO PRN ×2 (10:25)
[2022-12-28] MEDS: bicarb dialysis sol 2K+/3 Ca2+ 5,000 ML HE SCH ×5 (10:43→16:47)
--- NOTE | 2022-12-28 11:00 | NUR ---
Patients and son at bedside. Gave update, Dr. Mullins also talked with family.
[2022-12-28 11:35] LABS: HEMOGLOBIN A1C 10.7 % (4.5-6.2)
--- NOTE | 2022-12-28 11:50 | NUR ---
Initial: Pt admit for severe lactic acidosis, RAJINDER, SIRS, and ALOC. Pt intubated at this time with an OGT in place though having coffee ground output. Pt possibly to require PN given coffee ground output and pt receiving max pressors at this time though will reassess tomorrow for nutrition support per MD. Pt starting on CVVH today. Pt with h/o T2DM, current A1c 10.7%. Pt would benefit from DM education if appropriate following extubation. Pt documented with h/o dementia per [facility]. Pt to begin routine Thiamine and Folic acid for h/o EtOH with elevated MCV. Per clinical pharmacist current shortage of MVI. LBM 12/26. Will continue to follow closely. Recommendations: 1) Initiate nutrition support as medically indicated 2) Routine Thiamine and Folic acid for EtOH hx with elevated MCV; add routine MVI when available- MD weiss 12/28 3) Routine bowel care 4) Daily scaled weights 5) DM education if appropriate following extubation, A1c 10.7% though with dementia per [facility] Addendum: 12/28/22 at [address] Amended: Links added.
[2022-12-28] MEDS: folic acid 1mg/0.2ml inj IV SCH (11:59)
[2022-12-28 12:54] LABS: BASOPHILS % (AUTO) 0.1 % (0-1); EOSINOPHILS % (AUTO) 0 % (0-6); HEMATOCRIT 25.1 % (42.0-52.0); HEMOGLOBIN 7.9 g/dl (14.0-17.9); LYMPHOCYTES # (AUTO) 2.4 X10'3 (1.1-4.8); LYMPHOCYTES % (AUTO) 11.4 % (21-51); MEAN CORPUSCULAR HEMOGLOBIN 30.7 PG (27.0-31.0); MEAN CORPUSCULAR HGB CONC 31.5 g/dL (33.0-36.5); MEAN CORPUSCULAR VOLUME 97.2 FL (78-98); MEAN PLATELET VOLUME 10.4 FL (7.4-10.4); MONOCYTES # (AUTO) 2.2 X10'3 (0-0.9); MONOCYTES % (AUTO) 10.4 % (2-12); NEUTROPHILS # (AUTO) 16.4 X10'3 (1.8-7.7); NEUTROPHILS % (AUTO) 78.1 % (42-75); PLATELET COUNT 152 X10'3 (140-440); RED BLOOD COUNT 2.59 X10'6 (4.70-6.10); RED CELL DISTRIBUTION WIDTH 13.8 % (11.5-14.5)
[2022-12-28 13:05] LABS: ANION GAP 35 (8-16); BLOOD UREA NITROGEN 64 MG/DL (7-18); CALCIUM 6.5 MG/DL (8.5-10.1); CHLORIDE 96 MMOL/L (99-107); CREATININE 7.14 MG/DL (0.60-1.10); GLUCOSE 395 MG/DL (70-104); MAGNESIUM 1.7 MG/DL (1.5-2.4); PHOSPHORUS 8.9 MG/DL (2.3-4.5); POTASSIUM 5.1 MMOL/L (3.5-5.1); SODIUM 139 MMOL/L (135-145); eGFR 8 ML/MIN
[2022-12-28 13:11] LABS: TOTAL CARBON DIOXIDE 8.3 MMOL/L (24-32)
[2022-12-28] MEDS ORDERED: midazolam 100mg in NS 100ml 100 ML IV PRN (13:55)
[2022-12-28] MEDS ORDERED: fentaNYL/NS/PF 2,500 mcg/250mL 250 ML IV PRN (14:00)
[2022-12-28 14:05] LABS: BASOPHILS % (AUTO) 0.1 % (0-1); EOSINOPHILS % (AUTO) 0 % (0-6); HEMATOCRIT 25.2 % (42.0-52.0); LYMPHOCYTES # (AUTO) 2.6 X10'3 (1.1-4.8); LYMPHOCYTES % (AUTO) 12.4 % (21-51); MEAN CORPUSCULAR HEMOGLOBIN 30.4 PG (27.0-31.0); MEAN CORPUSCULAR HGB CONC 31.7 g/dL (33.0-36.5); MEAN CORPUSCULAR VOLUME 96.2 FL (78-98); MONOCYTES % (AUTO) 9.6 % (2-12); NEUTROPHILS # (AUTO) 16.1 X10'3 (1.8-7.7); NEUTROPHILS % (AUTO) 77.9 % (42-75); PLATELET COUNT 154 X10'3 (140-440); RED BLOOD COUNT 2.62 X10'6 (4.70-6.10); RED CELL DISTRIBUTION WIDTH 13.8 % (11.5-14.5); WHITE BLOOD COUNT 20.7 X10'3 (4.5-11.0)
[2022-12-28 14:19] LABS: ANION GAP 35 (8-16); BLOOD UREA NITROGEN 62 MG/DL (7-18); BUN/CREATININE RATIO 9.1 (5.4-32.0); CALCIUM 6.5 MG/DL (8.5-10.1); CHLORIDE 96 MMOL/L (99-107); CREATININE 6.82 MG/DL (0.60-1.10); GLUCOSE 398 MG/DL (70-104); MAGNESIUM 1.6 MG/DL (1.5-2.4); PHOSPHORUS 8.6 MG/DL (2.3-4.5); POTASSIUM 4.8 MMOL/L (3.5-5.1); SODIUM 139 MMOL/L (135-145); eGFR 8 ML/MIN
[2022-12-28 14:23] LABS: TOTAL CARBON DIOXIDE 7.9 MMOL/L (24-32)
[2022-12-28 14:30] LABS: BASOPHILS # (AUTO) 0.1 X10'3 (0-0.2); BASOPHILS % (AUTO) 0.3 % (0-1); EOSINOPHILS % (AUTO) 0 % (0-6); HEMATOCRIT 25.1 % (42.0-52.0); HEMOGLOBIN 7.9 g/dl (14.0-17.9); LYMPHOCYTES # (AUTO) 2.5 X10'3 (1.1-4.8); LYMPHOCYTES % (AUTO) 12.3 % (21-51); MEAN CORPUSCULAR HEMOGLOBIN 30.2 PG (27.0-31.0); MEAN CORPUSCULAR HGB CONC 31.6 g/dL (33.0-36.5); MEAN CORPUSCULAR VOLUME 95.3 FL (78-98); MONOCYTES # (AUTO) 1.8 X10'3 (0-0.9); MONOCYTES % (AUTO) 8.7 % (2-12); NEUTROPHILS % (AUTO) 78.7 % (42-75); PLATELET COUNT 154 X10'3 (140-440); RED BLOOD COUNT 2.63 X10'6 (4.70-6.10); RED CELL DISTRIBUTION WIDTH 14.1 % (11.5-14.5); WHITE BLOOD COUNT 20.3 X10'3 (4.5-11.0)
[2022-12-28] MEDS: insulin Lispro (HumaLOG) vial - multi-dose SQ SCH ×2 (14:38→20:28)
[2022-12-28 14:41] LABS: ANION GAP 34 (8-16); BLOOD UREA NITROGEN 60 MG/DL (7-18); CALCIUM 6.4 MG/DL (8.5-10.1); CHLORIDE 97 MMOL/L (99-107); CREATININE 6.66 MG/DL (0.60-1.10); GLUCOSE 397 MG/DL (70-104); MAGNESIUM 1.6 MG/DL (1.5-2.4); PHOSPHORUS 8.1 MG/DL (2.3-4.5); POTASSIUM 4.8 MMOL/L (3.5-5.1); SODIUM 140 MMOL/L (135-145); eGFR 8 ML/MIN
[2022-12-28 14:46] LABS: TOTAL CARBON DIOXIDE 9.1 MMOL/L (24-32)
[2022-12-28 15:16] LABS: BASOPHILS % (AUTO) 0.1 % (0-1); EOSINOPHILS % (AUTO) 0 % (0-6); HEMATOCRIT 24.9 % (42.0-52.0); HEMOGLOBIN 7.8 g/dl (14.0-17.9); LYMPHOCYTES # (AUTO) 2.3 X10'3 (1.1-4.8); LYMPHOCYTES % (AUTO) 11.5 % (21-51); MEAN CORPUSCULAR HEMOGLOBIN 29.9 PG (27.0-31.0); MEAN CORPUSCULAR HGB CONC 31.4 g/dL (33.0-36.5); MEAN CORPUSCULAR VOLUME 95.3 FL (78-98); MEAN PLATELET VOLUME 9.7 FL (7.4-10.4); MONOCYTES # (AUTO) 1.8 X10'3 (0-0.9); MONOCYTES % (AUTO) 8.8 % (2-12); NEUTROPHILS # (AUTO) 16.2 X10'3 (1.8-7.7); NEUTROPHILS % (AUTO) 79.6 % (42-75); PLATELET COUNT 154 X10'3 (140-440); RED BLOOD COUNT 2.62 X10'6 (4.70-6.10); RED CELL DISTRIBUTION WIDTH 13.7 % (11.5-14.5); WHITE BLOOD COUNT 20.3 X10'3 (4.5-11.0)
[2022-12-28 15:28] LABS: ANION GAP 33 (8-16); BLOOD UREA NITROGEN 59 MG/DL (7-18); BUN/CREATININE RATIO 9.1 (5.4-32.0); CALCIUM 6.5 MG/DL (8.5-10.1); CHLORIDE 96 MMOL/L (99-107); CREATININE 6.49 MG/DL (0.60-1.10); GLUCOSE 401 MG/DL (70-104); MAGNESIUM 1.5 MG/DL (1.5-2.4); POTASSIUM 4.8 MMOL/L (3.5-5.1); SODIUM 140 MMOL/L (135-145); eGFR 8 ML/MIN
[2022-12-28 15:48] LABS: CLARITY,URINE CLOUDY (Clear); COLOR,URINE YELLOW (Yellow); GLUCOSE, URINE NEGATIVE (Neg); KETONES,URINE 15 mg/dl (Neg); LEUKOCYTE ESTERASE ,URINE NEGATIVE (Neg); NITRITES, URINE NEGATIVE (Neg); OCCULT BLOOD,URINE LARGE (Neg); PH,URINE 5.5 (4.8-8.0); PROTEIN,URINE >=300 mg/dl (Neg); UROBILINOGEN,URINE 0.2 E.U/dL (0.2-1.0)
[2022-12-28 16:13] LABS: UA COLLECTION TYPE NON-SPECIFIED
[2022-12-28 16:14] LABS: SQUAMOUS EPITHELIAL CELL,UR MODERATE /LPF (FEW); TRANSITIONAL EPI CELLS,URINE MODERATE /HPF
[2022-12-28 16:15] LABS: MUCUS STRANDS FEW /LPF (Neg)
[2022-12-28 16:18] LABS: COARSE GRANULAR CAST 0-3 /LPF (NEGATIVE); FINE GRANULAR CAST 0-3 /LPF (NEGATIVE); HYALINE CASTS 0-3 /LPF (NEGATIVE)
[2022-12-28 16:19] LABS: CAL OXALATE CRYSTALS FEW /HPF (NEGATIVE); CELLULAR CAST 0-4 /LPF (NEGATIVE); RBC,URINE 0-2 /HPF (0-2); WBC,URINE 0-4 /HPF (0-4)
[2022-12-28 16:21] LABS: AMORPHOUS URATES 2+; BACTERIA,URINE FEW /HPF (Neg); YEAST MODERATE /HPF (NEGATIVE)
[2022-12-28 16:50] LABS: UA EOSINOPHILS NO EOS /HPF
[2022-12-28] MEDS: magnesium 4gm in 100ml NS 100 ML IV PRN (17:30)
--- NOTE | 2022-12-28 18:06 | NUR ---
Updated and son over the phone.
--- NOTE | 2022-12-28 18:21 | NUR ---
Problems reprioritized. Patient report given, questions answered & plan of care reviewed with Mac RN.
[2022-12-28] MEDS: mineral oil/petrolatum ophthal oint EACHEYE SCH (19:20)
[2022-12-28] MEDS: pantoprazole 40MG/NS 100ML BAG 100 ML IV SCH (19:20)
[2022-12-28 19:54] LABS: ABG HCO3 16.8 mmol/L (22.0-26.0); ABG OXYGEN SATURATION 94.9 % (94-97); ABG PCO2 (T) 39.1 mmHg (35.0-48.0); ABG PO2 (T) 78.5 mmHg (75.0-100.0); FCOHb 0.3 % (0.0-3.9); FMetHb 0.4 % (0.0-1.5); FO2Hb 94.2 % (94-97); PEEP 5 cm H2O; RESPIRATORY RATE 24 b/min; TIDAL VOLUME 450 mL; TOTAL HEMOGLOBIN 8.7 G/dl (14.0-17.9)
[2022-12-28] MEDS: insulin glargine (Lantus) pen - multi-dose SQ SCH (20:27)
[2022-12-28] MEDS ORDERED: fludrocortisone acetate 0.1mg tablet PO SCH (21:10)
[2022-12-28] MEDS ORDERED: CALCIUM GLUC 1gm/50ml NACL,iso 50 ML IV STA (21:53)
--- NOTE | 2022-12-28 22:00 | NUR ---
Pt MARTÍNEZ, pupils are equal and reactive, very weak cough with suction, not following instructions. All sedation turned off.
--- NOTE | 2022-12-28 22:15 | NUR ---
MD Communication -Called Dr. Mullins regarding hypotension, increased O2 demands, and decrease in LOC. Orders received.
[2022-12-28] MEDS: methylPREDNISolone sod succ 125mg/2ml vial IV SCH (22:37)
[2022-12-28 22:49] LABS: BASOPHILS % (AUTO) 0.4 % (0-1); EOSINOPHILS % (AUTO) 0.1 % (0-6); HEMATOCRIT 24.6 % (42.0-52.0); HEMOGLOBIN 8.5 g/dl (14.0-17.9); LYMPHOCYTES # (AUTO) 1.4 X10'3 (1.1-4.8); LYMPHOCYTES % (AUTO) 15.1 % (21-51); MEAN CORPUSCULAR HEMOGLOBIN 32.2 PG (27.0-31.0); MEAN CORPUSCULAR HGB CONC 34.6 g/dL (33.0-36.5); MEAN CORPUSCULAR VOLUME 93.1 FL (78-98); MEAN PLATELET VOLUME 9.8 FL (7.4-10.4); MONOCYTES # (AUTO) 0.7 X10'3 (0-0.9); MONOCYTES % (AUTO) 7.7 % (2-12); NEUTROPHILS # (AUTO) 7.1 X10'3 (1.8-7.7); NEUTROPHILS % (AUTO) 76.7 % (42-75); PLATELET COUNT 139 X10'3 (140-440); RED BLOOD COUNT 2.64 X10'6 (4.70-6.10); RED CELL DISTRIBUTION WIDTH 13.5 % (11.5-14.5); WHITE BLOOD COUNT 9.2 X10'3 (4.5-11.0)
[2022-12-28 22:50] LABS: ALBUMIN 3.8 G/DL (3.4-5.0); ANION GAP 18 (8-16); BLOOD UREA NITROGEN 42 MG/DL (7-18); BUN/CREATININE RATIO 9.4 (5.4-32.0); CALCIUM 6.4 MG/DL (8.5-10.1); CHLORIDE 100 MMOL/L (99-107); CREATININE 4.46 MG/DL (0.60-1.10); GLUCOSE 266 MG/DL (70-104); MAGNESIUM 2.2 MG/DL (1.5-2.4); PHOSPHORUS 4.6 MG/DL (2.3-4.5); SODIUM 141 MMOL/L (135-145); TOTAL CARBON DIOXIDE 23.5 MMOL/L (24-32); eGFR 13 ML/MIN
[2022-12-28] MEDS ORDERED: CALCIUM GLUC 1gm/50ml NACL,iso 50 ML IV ONE (23:00)
--- NOTE | 2022-12-28 23:05 | NUR ---
Communication -Called Dr. Mullins regarding continued drop in O2 saturation. No new orders.
[2022-12-29] VITALS (34 sets, daily range): BP systolic 94–144; BP diastolic 39–50
--- NOTE | 2022-12-29 00:30 | NUR ---
CVVH down. Dialysis notified and is en route.
--- NOTE | 2022-12-29 01:00 | NUR ---
MD Communication -Called Dr. Mullins regarding CVVH down and pt has required multiple rounds of bag mask ventilation. Per MD, may increase PEEP up to 10 to maintain saturation above 88%.
[2022-12-29] MEDS: NORepinephrine inj. 32 MG in normal saline 250ml IV soln 218 ML IV SCH ×2 (01:23→20:08)
[2022-12-29] MEDS: bicarb dialysis sol 2K+/3 Ca2+ 5,000 ML HE SCH ×11 (01:28→10:47)
[2022-12-29] MEDS: SODIUM BICARB 150mEq/D5W 1L 1,000 ML IV SCH (01:51)
[2022-12-29] MEDS: piperacillin/tazo 3.375gm/50ml 50 ML IV SCH ×3 (01:51→23:58)
[2022-12-29] MEDS: mineral oil/petrolatum ophthal oint EACHEYE SCH ×4 (02:10→19:42)
[2022-12-29] MEDS: albumin (Human) 5% 250ml 250 ML IV SCH ×3 (02:10→08:59)
[2022-12-29 02:43] LABS: ABG BASE EXCESS -4.9 mmol/L (-2.0-2.0); ABG HCO3 21.6 mmol/L (22.0-26.0); ABG PCO2 (T) 45.4 mmHg (35.0-48.0); ABG PO2 (T) 40.9 mmHg (75.0-100.0); FCOHb 0.3 % (0.0-3.9); FMetHb 0.2 % (0.0-1.5); FO2Hb 75.6 % (94-97); PATIENT TEMPERATURE 36.6; PEEP 10 cm H2O; RESPIRATORY RATE 24 b/min; TIDAL VOLUME 450 mL; TOTAL HEMOGLOBIN 9.5 G/dl (14.0-17.9)
[2022-12-29] MEDS: VANCOMYCIN LEVEL IV SCH (03:00)
[2022-12-29] MEDS: PHENYLephrine 10mg/ml inj. 50 MG in normal saline 250ml IV soln 245 ML IV PRN (03:33)
[2022-12-29] MEDS: insulin Lispro (HumaLOG) vial - multi-dose SQ SCH (03:49)
[2022-12-29 04:04] LABS: BASOPHILS % (AUTO) 0.1 % (0-1); EOSINOPHILS % (AUTO) 0 % (0-6); HEMATOCRIT 26.1 % (42.0-52.0); HEMOGLOBIN 8.6 g/dl (14.0-17.9); LYMPHOCYTES # (AUTO) 0.7 X10'3 (1.1-4.8); LYMPHOCYTES % (AUTO) 6.6 % (21-51); MEAN CORPUSCULAR HEMOGLOBIN 30.2 PG (27.0-31.0); MEAN CORPUSCULAR HGB CONC 32.8 g/dL (33.0-36.5); MEAN PLATELET VOLUME 10.1 FL (7.4-10.4); MONOCYTES % (AUTO) 9.4 % (2-12); NEUTROPHILS # (AUTO) 8.8 X10'3 (1.8-7.7); NEUTROPHILS % (AUTO) 83.9 % (42-75); PLATELET COUNT 131 X10'3 (140-440); RED BLOOD COUNT 2.83 X10'6 (4.70-6.10); RED CELL DISTRIBUTION WIDTH 13.5 % (11.5-14.5); WHITE BLOOD COUNT 10.5 X10'3 (4.5-11.0)
[2022-12-29 04:13] LABS: APTT 47 SECONDS (22-32)
[2022-12-29 04:20] LABS: ALANINE AMINOTRANSFERASE 46 U/L (12-78); ALBUMIN 3.8 G/DL (3.4-5.0); ALBUMIN/GLOBULIN RATIO 2.4 (1.1-1.5); ALKALINE PHOSPHATASE 47 IU/L (46-116); ANION GAP 17 (8-16); ASPARTATE AMINO TRANSFERASE 233 U/L (10-37); BILIRUBIN,TOTAL 0.5 MG/DL (0.1-1.0); BLOOD UREA NITROGEN 40 MG/DL (7-18); BUN/CREATININE RATIO 9.2 (5.4-32.0); CALCIUM 7.1 MG/DL (8.5-10.1); CHLORIDE 99 MMOL/L (99-107); CREATININE 4.33 MG/DL (0.60-1.10); GLUCOSE 291 MG/DL (70-104); MAGNESIUM 2.1 MG/DL (1.5-2.4); PHOSPHORUS 4.2 MG/DL (2.3-4.5); POTASSIUM 3.9 MMOL/L (3.5-5.1); SODIUM 141 MMOL/L (135-145); TOTAL PROTEIN 5.4 G/DL (6.4-8.2); VANCOMYCIN,RANDOM 10.5 UG/ML; eGFR 13 ML/MIN
[2022-12-29 04:21] LABS: BILIRUBIN,DIRECT 0.2 MG/DL (0-0.3)
[2022-12-29 04:36] LABS: PLATELET ESTIMATE NORMAL; TOTAL CELLS COUNTED 100
[2022-12-29 05:04] LABS: ABG BASE EXCESS -2.9 mmol/L (-2.0-2.0); ABG HCO3 23.6 mmol/L (22.0-26.0); ABG OXYGEN SATURATION 90.4 % (94-97); ABG PCO2 (T) 47.3 mmHg (35.0-48.0); ABG PO2 (T) 58.9 mmHg (75.0-100.0); ALLEN'S TEST POSITIVE; FCOHb 0.3 % (0.0-3.9); FMetHb 0.2 % (0.0-1.5); FO2Hb 89.9 % (94-97); PATIENT TEMPERATURE 36.2; PEEP 15 cm H2O; RESPIRATORY RATE 24 b/min; TIDAL VOLUME 400 mL; TOTAL HEMOGLOBIN 9.6 G/dl (14.0-17.9)
--- NOTE | 2022-12-29 06:10 | NUR ---
Communication -Called Dr. Jernigan regarding oxygenation and fluid status. Blood pressure is increasing and pressers are being decreased. Per MD, may remove up to 100 ml/hr as tolerated by pt.
[2022-12-29] MEDS: thiamine 100mg/ml 2ml inj. IV SCH (07:53)
[2022-12-29] MEDS: folic acid 1mg/0.2ml inj IV SCH (07:53)
[2022-12-29] MEDS: heparin, porcine 5000 units/ml vial SQ SCH ×2 (07:53→08:00)
[2022-12-29] MEDS: methylPREDNISolone sod succ 125mg/2ml vial IV SCH (07:53)
[2022-12-29] MEDS: pantoprazole 40MG/NS 100ML BAG 100 ML IV SCH ×2 (07:54→19:42)
[2022-12-29] MEDS: insulin regular, human U-100 3ml vial - multi-dose SQ SCH ×3 (08:13→22:15)
[2022-12-29 09:59] LABS: ABG BASE EXCESS 0.8 mmol/L (-2.0-2.0); ABG HCO3 26.3 mmol/L (22.0-26.0); ABG OXYGEN SATURATION 92.8 % (94-97); ABG PO2 (T) 62.9 mmHg (75.0-100.0); FCOHb 0.3 % (0.0-3.9); FMetHb 0.2 % (0.0-1.5); FO2Hb 92.3 % (94-97); PATIENT TEMPERATURE 36.5; RESPIRATORY RATE 24 b/min; TIDAL VOLUME 450 mL; TOTAL HEMOGLOBIN 9.3 G/dl (14.0-17.9)
[2022-12-29 10:41] LABS: BASOPHILS % (AUTO) 0 % (0-1); EOSINOPHILS % (AUTO) 0 % (0-6); HEMATOCRIT 25.1 % (42.0-52.0); HEMOGLOBIN 8.5 g/dl (14.0-17.9); LYMPHOCYTES # (AUTO) 0.6 X10'3 (1.1-4.8); LYMPHOCYTES % (AUTO) 3.8 % (21-51); MEAN CORPUSCULAR VOLUME 91.3 FL (78-98); MEAN PLATELET VOLUME 9.9 FL (7.4-10.4); MONOCYTES # (AUTO) 1.3 X10'3 (0-0.9); MONOCYTES % (AUTO) 8.7 % (2-12); NEUTROPHILS # (AUTO) 12.7 X10'3 (1.8-7.7); NEUTROPHILS % (AUTO) 87.5 % (42-75); PLATELET COUNT 119 X10'3 (140-440); RED BLOOD COUNT 2.75 X10'6 (4.70-6.10); RED CELL DISTRIBUTION WIDTH 13.7 % (11.5-14.5); WHITE BLOOD COUNT 14.5 X10'3 (4.5-11.0)
[2022-12-29 10:50] LABS: ANION GAP 12 (8-16); BLOOD UREA NITROGEN 27 MG/DL (7-18); BUN/CREATININE RATIO 8.5 (5.4-32.0); CALCIUM 7.3 MG/DL (8.5-10.1); CHLORIDE 101 MMOL/L (99-107); CREATININE 3.19 MG/DL (0.60-1.10); GLUCOSE 235 MG/DL (70-104); MAGNESIUM 1.9 MG/DL (1.5-2.4); PHOSPHORUS 3.6 MG/DL (2.3-4.5); POTASSIUM 3.8 MMOL/L (3.5-5.1); SODIUM 140 MMOL/L (135-145); TOTAL CARBON DIOXIDE 27.5 MMOL/L (24-32); eGFR 19 ML/MIN
[2022-12-29] MEDS ORDERED: vancomycin/NS 1 GM ADD-VANTAGE 250 ML IV ONE (12:00)
[2022-12-29 15:26] LABS: HBSAG SCREEN Negative (Negative)
[2022-12-29 16:11] LABS: BASOPHILS % (AUTO) 0 % (0-1); EOSINOPHILS % (AUTO) 0 % (0-6); HEMATOCRIT 24.5 % (42.0-52.0); HEMOGLOBIN 8.5 g/dl (14.0-17.9); LYMPHOCYTES # (AUTO) 0.5 X10'3 (1.1-4.8); LYMPHOCYTES % (AUTO) 3.5 % (21-51); MEAN CORPUSCULAR HEMOGLOBIN 31.3 PG (27.0-31.0); MEAN CORPUSCULAR HGB CONC 34.8 g/dL (33.0-36.5); MEAN CORPUSCULAR VOLUME 90.1 FL (78-98); MEAN PLATELET VOLUME 10.1 FL (7.4-10.4); MONOCYTES # (AUTO) 1.3 X10'3 (0-0.9); MONOCYTES % (AUTO) 8.7 % (2-12); NEUTROPHILS # (AUTO) 13.1 X10'3 (1.8-7.7); NEUTROPHILS % (AUTO) 87.8 % (42-75); PLATELET COUNT 116 X10'3 (140-440); RED BLOOD COUNT 2.72 X10'6 (4.70-6.10); RED CELL DISTRIBUTION WIDTH 13.6 % (11.5-14.5); WHITE BLOOD COUNT 14.9 X10'3 (4.5-11.0)
[2022-12-29 16:16] LABS: ALBUMIN 3.9 G/DL (3.4-5.0); ANION GAP 12 (8-16); BLOOD UREA NITROGEN 26 MG/DL (7-18); BUN/CREATININE RATIO 9.4 (5.4-32.0); CALCIUM 7.8 MG/DL (8.5-10.1); CHLORIDE 102 MMOL/L (99-107); CREATININE 2.78 MG/DL (0.60-1.10); GLUCOSE 156 MG/DL (70-104); MAGNESIUM 1.8 MG/DL (1.5-2.4); PHOSPHORUS 3.4 MG/DL (2.3-4.5); POTASSIUM 3.9 MMOL/L (3.5-5.1); SODIUM 139 MMOL/L (135-145); TOTAL CARBON DIOXIDE 25.3 MMOL/L (24-32); eGFR 23 ML/MIN
[2022-12-29] MEDS: hydrocortisone sod succ/PF 100mg/2ml inj. IV SCH ×2 (16:29→23:58)
[2022-12-29] MEDS: vasopressin inj. 40 UNIT in normal saline 50ml IV soln 38 ML IV SCH (20:45)
--- NOTE | 2022-12-29 20:52 | NUR ---
MD Communication -Called Dr. Mullins to clarify Heparin and Insulin orders. Orders received. Informed MD of neuro changes: pt waking up intermittently, responds to voice, follows some instructions, muscle movements are spastic.
[2022-12-29] MEDS: insulin glargine (Lantus) pen - multi-dose SQ SCH (22:16)
[2022-12-29 22:46] LABS: HEMATOCRIT 25.2 % (42.0-52.0); HEMOGLOBIN 8.4 g/dl (14.0-17.9)
[2022-12-29 22:47] LABS: BASOPHILS % (AUTO) 0 % (0-1); EOSINOPHILS % (AUTO) 0 % (0-6); LYMPHOCYTES # (AUTO) 0.4 X10'3 (1.1-4.8); LYMPHOCYTES % (AUTO) 2.6 % (21-51); MEAN CORPUSCULAR HEMOGLOBIN 30.2 PG (27.0-31.0); MEAN CORPUSCULAR HGB CONC 33.1 g/dL (33.0-36.5); MEAN CORPUSCULAR VOLUME 91.2 FL (78-98); MEAN PLATELET VOLUME 10.3 FL (7.4-10.4); MONOCYTES # (AUTO) 1.2 X10'3 (0-0.9); MONOCYTES % (AUTO) 8.5 % (2-12); NEUTROPHILS # (AUTO) 12.6 X10'3 (1.8-7.7); NEUTROPHILS % (AUTO) 88.9 % (42-75); PLATELET COUNT 113 X10'3 (140-440); RED BLOOD COUNT 2.76 X10'6 (4.70-6.10); WHITE BLOOD COUNT 14.2 X10'3 (4.5-11.0)
[2022-12-29 22:53] LABS: ALBUMIN 3.9 G/DL (3.4-5.0); ANION GAP 12 (8-16); BLOOD UREA NITROGEN 24 MG/DL (7-18); BUN/CREATININE RATIO 9.3 (5.4-32.0); CHLORIDE 102 MMOL/L (99-107); CREATININE 2.57 MG/DL (0.60-1.10); GLUCOSE 157 MG/DL (70-104); MAGNESIUM 1.9 MG/DL (1.5-2.4); PHOSPHORUS 4.1 MG/DL (2.3-4.5); POTASSIUM 4.1 MMOL/L (3.5-5.1); SODIUM 139 MMOL/L (135-145); TOTAL CARBON DIOXIDE 25.2 MMOL/L (24-32); eGFR 25 ML/MIN
[2022-12-29] MEDS: fentaNYL/NS/PF 2,500 mcg/250mL 250 ML IV PRN (23:55)
[2022-12-29] MEDS: fludrocortisone acetate 0.1mg tablet OGT SCH (23:58)
[2022-12-30] VITALS (33 sets, daily range): BP systolic 94–138; BP diastolic 47–56
[2022-12-30 01:48] LABS: ABG BASE EXCESS -1.8 mmol/L (-2.0-2.0); ABG HCO3 22.2 mmol/L (22.0-26.0); ABG OXYGEN SATURATION 97.2 % (94-97); ABG PCO2 (T) 34.2 mmHg (35.0-48.0); ABG PO2 (T) 98.9 mmHg (75.0-100.0); FCOHb 0.3 % (0.0-3.9); FMetHb 0.1 % (0.0-1.5); FO2Hb 96.8 % (94-97); PATIENT TEMPERATURE 36.8; PEEP 15 cm H2O; RESPIRATORY RATE 24 b/min; TIDAL VOLUME 450 mL
[2022-12-30] MEDS: mineral oil/petrolatum ophthal oint EACHEYE SCH ×4 (02:00→20:54)
[2022-12-30] MEDS: VANCOMYCIN LEVEL IV SCH (03:00)
[2022-12-30] MEDS: insulin regular, human U-100 3ml vial - multi-dose SQ SCH ×4 (04:07→21:12)
[2022-12-30 04:11] LABS: BASOPHILS % (AUTO) 0.1 % (0-1); EOSINOPHILS % (AUTO) 0 % (0-6); HEMATOCRIT 24.6 % (42.0-52.0); HEMOGLOBIN 8.3 g/dl (14.0-17.9); LYMPHOCYTES # (AUTO) 0.3 X10'3 (1.1-4.8); LYMPHOCYTES % (AUTO) 2.4 % (21-51); MEAN CORPUSCULAR HEMOGLOBIN 30.4 PG (27.0-31.0); MEAN CORPUSCULAR HGB CONC 33.5 g/dL (33.0-36.5); MEAN CORPUSCULAR VOLUME 90.8 FL (78-98); MEAN PLATELET VOLUME 10.5 FL (7.4-10.4); MONOCYTES # (AUTO) 1.3 X10'3 (0-0.9); MONOCYTES % (AUTO) 9.3 % (2-12); NEUTROPHILS # (AUTO) 12.7 X10'3 (1.8-7.7); NEUTROPHILS % (AUTO) 88.2 % (42-75); PLATELET COUNT 114 X10'3 (140-440); RED BLOOD COUNT 2.71 X10'6 (4.70-6.10); RED CELL DISTRIBUTION WIDTH 13.9 % (11.5-14.5); WHITE BLOOD COUNT 14.4 X10'3 (4.5-11.0)
[2022-12-30] MEDS: vasopressin inj. 40 UNIT in normal saline 50ml IV soln 38 ML IV SCH (04:19)
[2022-12-30 04:21] LABS: APTT 54 SECONDS (22-32)
[2022-12-30 04:33] LABS: ALANINE AMINOTRANSFERASE 959 U/L (12-78); ALBUMIN 3.9 G/DL (3.4-5.0); ALBUMIN/GLOBULIN RATIO 1.8 (1.1-1.5); ALKALINE PHOSPHATASE 53 IU/L (46-116); ANION GAP 14 (8-16); BILIRUBIN,TOTAL 1.1 MG/DL (0.1-1.0); BLOOD UREA NITROGEN 26 MG/DL (7-18); BUN/CREATININE RATIO 10.6 (5.4-32.0); CALCIUM 8.2 MG/DL (8.5-10.1); CHLORIDE 102 MMOL/L (99-107); CREATININE 2.46 MG/DL (0.60-1.10); GLUCOSE 156 MG/DL (70-104); MAGNESIUM 2.1 MG/DL (1.5-2.4); SODIUM 140 MMOL/L (135-145); TOTAL PROTEIN 6.1 G/DL (6.4-8.2); VANCOMYCIN,RANDOM 12.8 UG/ML; eGFR 26 ML/MIN
[2022-12-30 04:35] LABS: ASPARTATE AMINO TRANSFERASE 1881 U/L (10-37); BILIRUBIN,DIRECT 0.4 MG/DL (0-0.3)
[2022-12-30] MEDS: thiamine 100mg/ml 2ml inj. IV SCH (07:51)
[2022-12-30] MEDS: hydrocortisone sod succ/PF 100mg/2ml inj. IV SCH ×3 (07:51→23:58)
[2022-12-30] MEDS: folic acid 1mg/0.2ml inj IV SCH (07:52)
[2022-12-30] MEDS: pantoprazole 40MG/NS 100ML BAG 100 ML IV SCH ×2 (07:52→20:54)
[2022-12-30] MEDS: fludrocortisone acetate 0.1mg tablet OGT SCH (07:54)
[2022-12-30 09:25] LABS: BASOPHILS % (AUTO) 0 % (0-1); EOSINOPHILS % (AUTO) 0 % (0-6); HEMATOCRIT 24.3 % (42.0-52.0); HEMOGLOBIN 8.3 g/dl (14.0-17.9); LYMPHOCYTES # (AUTO) 0.4 X10'3 (1.1-4.8); LYMPHOCYTES % (AUTO) 2.7 % (21-51); MEAN CORPUSCULAR HEMOGLOBIN 30.5 PG (27.0-31.0); MEAN CORPUSCULAR VOLUME 89.7 FL (78-98); MEAN PLATELET VOLUME 9.6 FL (7.4-10.4); MONOCYTES # (AUTO) 1.1 X10'3 (0-0.9); MONOCYTES % (AUTO) 7.8 % (2-12); NEUTROPHILS # (AUTO) 12.5 X10'3 (1.8-7.7); NEUTROPHILS % (AUTO) 89.5 % (42-75); PLATELET COUNT 106 X10'3 (140-440); RED BLOOD COUNT 2.71 X10'6 (4.70-6.10)
[2022-12-30 09:40] LABS: ALBUMIN 3.8 G/DL (3.4-5.0); ANION GAP 15 (8-16); BLOOD UREA NITROGEN 27 MG/DL (7-18); BUN/CREATININE RATIO 11.8 (5.4-32.0); CALCIUM 8.3 MG/DL (8.5-10.1); CHLORIDE 102 MMOL/L (99-107); CREATININE 2.28 MG/DL (0.60-1.10); GLUCOSE 162 MG/DL (70-104); PHOSPHORUS 3.9 MG/DL (2.3-4.5); POTASSIUM 3.9 MMOL/L (3.5-5.1); SODIUM 140 MMOL/L (135-145); TOTAL CARBON DIOXIDE 23.2 MMOL/L (24-32); eGFR 28 ML/MIN
--- NOTE | 2022-12-30 10:31 | NUR ---
TF Consult: Pt remains intubated on CVVH OG in plce MAP 76 this AM and TF started today per. Pt receiving TF past 9 hours at 20ml/hr and tolerating initial GRV's WNL per EMR; see RD recs below. Noted LBM 12/26; RD d/w RN regarding routine bowel regimen if MD agreeable. Per RN, pt hx dementia though independent and cognizant at baseline. Will monitor for TF tolerance and further nutrition intervention needs. Recommendations: 1) Continuous TF per MD using Vital AF at 80ml/hr goal; to provide 1920ml volume/day, 2304 kcals, 1557ml water, and 144g protein. 2) additional water flush per physician; on CVVH 3) Routine Thiamine and Folic acid for EtOH hx with elevated MCV; add routine MVI when available- MD weiss 12/28 4) PALB Q /; Daily scaled weights 5) routine bowel care 6) DM education if appropriate following extubation, A1c 10.7% hx dementia though independent and cognizant per RN Addendum: 12/30/22 at [address] Amended: Links added. Addendum: 12/30/22 at [address] *CORRECTION* Recommendations: 1) Continuous TF per MD using Pivot 1.5 at 65ml/hr goal; to provide 1560ml volume/day, 2340 kcals, 1170ml water, and 146g protein. 2) additional water flush per physician; on CVVH 3) Routine Thiamine and Folic acid for EtOH hx with elevated MCV; add routine MVI when available- MD weiss 12/28 4) PALB Q /; Daily scaled weights 5) routine bowel care 6) DM education if appropriate following extubation, A1c 10.7% hx dementia though independent and cognizant per RN
--- NOTE | 2022-12-30 10:39 | NUR ---
*CORRECTION* TF Consult: Pt remains intubated on CVVH OG in place MAP 76 this AM and TF started today per. Pt receiving TF past 9 hours at 20ml/hr and tolerating initial GRV's WNL per EMR; see RD recs below. Noted LBM 12/26; RD d/w RN regarding routine bowel regimen if MD agreeable. Per RN, pt hx dementia though independent and cognizant at baseline. Will monitor for TF tolerance and further nutrition intervention needs. Recommendations: 1) Continuous TF per MD using Pivot 1.5 at 65ml/hr goal; to provide 1560ml volume/day, 2340 kcals, 1170ml water, and 146g protein. 2) additional water flush per physician; on CVVH 3) Routine Thiamine and Folic acid for EtOH hx with elevated MCV; add routine MVI when available- MD weiss 12/28 4) PALB Q /; Daily scaled weights 5) routine bowel care 6) DM education if appropriate following extubation, A1c 10.7% hx dementia though independent and cognizant per RN Addendum: 12/30/22 at [address] Amended: Links added.
--- NOTE | 2022-12-30 11:10 | NUR ---
Dr. Mullins rounded and stated that it was okay to begin to wean the peep today as the patient tolerates. He also stated okay to turn off the external pacemaker now that the patient's underlying rhythm is NSR. He also agreed to starting Senna-s and increasing the tube feeding per Toy Assembly Supervisor recommendations. He is aware of the patient's increasing liver enzymes.
[2022-12-30] MEDS: bicarb dialysis sol 2K+/3 Ca2+ 5,000 ML HE SCH ×5 (12:53→21:45)
[2022-12-30] MEDS ORDERED: vancomycin/NS 1 GM ADD-VANTAGE 250 ML IV ONE (13:00)
[2022-12-30] MEDS: piperacillin/tazo 3.375gm/50ml 50 ML IV SCH (13:08)
[2022-12-30] MEDS ORDERED: acetaminophen 325mg/10.15ml oral unit dose solution OGT PRN ×2 (13:17)
[2022-12-30] MEDS ORDERED: magnesium hydroxide 30ml (MOM) UD suspension OGT PRN (13:18)
[2022-12-30] MEDS ORDERED: DEXTROSE 15 GM of carb/4 tabs (each vial/BOTTLE has 4 tablets) OGT PRN ×2 (13:18)
[2022-12-30] MEDS: fentaNYL/NS/PF 2,500 mcg/250mL 250 ML IV PRN ×2 (14:24→23:58)
[2022-12-30] MEDS: NORepinephrine inj. 32 MG in normal saline 250ml IV soln 218 ML IV SCH (14:28)
[2022-12-30 15:28] LABS: BASOPHILS % (AUTO) 0.1 % (0-1); EOSINOPHILS % (AUTO) 0 % (0-6); HEMATOCRIT 24.3 % (42.0-52.0); LYMPHOCYTES # (AUTO) 0.5 X10'3 (1.1-4.8); LYMPHOCYTES % (AUTO) 3.9 % (21-51); MEAN CORPUSCULAR HEMOGLOBIN 30.2 PG (27.0-31.0); MEAN CORPUSCULAR VOLUME 91.3 FL (78-98); MEAN PLATELET VOLUME 10.2 FL (7.4-10.4); MONOCYTES % (AUTO) 7.4 % (2-12); NEUTROPHILS # (AUTO) 12.4 X10'3 (1.8-7.7); NEUTROPHILS % (AUTO) 88.6 % (42-75); PLATELET COUNT 101 X10'3 (140-440); RED BLOOD COUNT 2.67 X10'6 (4.70-6.10); RED CELL DISTRIBUTION WIDTH 13.7 % (11.5-14.5)
[2022-12-30 15:37] LABS: ALBUMIN 3.7 G/DL (3.4-5.0); ANION GAP 14 (8-16); BLOOD UREA NITROGEN 30 MG/DL (7-18); BUN/CREATININE RATIO 12.8 (5.4-32.0); CALCIUM 8.4 MG/DL (8.5-10.1); CHLORIDE 103 MMOL/L (99-107); CREATININE 2.35 MG/DL (0.60-1.10); GLUCOSE 166 MG/DL (70-104); SODIUM 140 MMOL/L (135-145); TOTAL CARBON DIOXIDE 22.6 MMOL/L (24-32); eGFR 27 ML/MIN
--- NOTE | 2022-12-30 16:40 | NUR ---
Called Dr. Mullins regarding the patient being agitated and anxious, orders to restart Versed but not to run it at more than 5ml/hr.
--- NOTE | 2022-12-30 18:15 | NUR ---
Patient in room CICU 2013. I have received report from Kathy FLOREZ and had the opportunity to ask questions and assume patient care.
--- NOTE | 2022-12-30 19:55 | NUR ---
CVVH machine down. yard brakeman called and notified.
[2022-12-30] MEDS: sennosides/docusate sodium tablet OGT SCH (20:54)
[2022-12-30 21:06] LABS: BASOPHILS % (AUTO) 0 % (0-1); EOSINOPHILS % (AUTO) 0 % (0-6); HEMATOCRIT 23.5 % (42.0-52.0); HEMOGLOBIN 7.7 g/dl (14.0-17.9); LYMPHOCYTES # (AUTO) 0.5 X10'3 (1.1-4.8); MEAN CORPUSCULAR HEMOGLOBIN 29.9 PG (27.0-31.0); MEAN CORPUSCULAR HGB CONC 32.8 g/dL (33.0-36.5); MEAN CORPUSCULAR VOLUME 91.2 FL (78-98); MEAN PLATELET VOLUME 10.4 FL (7.4-10.4); MONOCYTES % (AUTO) 7.2 % (2-12); NEUTROPHILS # (AUTO) 11.9 X10'3 (1.8-7.7); NEUTROPHILS % (AUTO) 88.8 % (42-75); PLATELET COUNT 91 X10'3 (140-440); RED BLOOD COUNT 2.58 X10'6 (4.70-6.10); WHITE BLOOD COUNT 13.4 X10'3 (4.5-11.0)
[2022-12-30 21:12] LABS: ALBUMIN 3.6 G/DL (3.4-5.0); ANION GAP 13 (8-16); BLOOD UREA NITROGEN 32 MG/DL (7-18); BUN/CREATININE RATIO 13.3 (5.4-32.0); CALCIUM 8.3 MG/DL (8.5-10.1); CHLORIDE 102 MMOL/L (99-107); GLUCOSE 145 MG/DL (70-104); MAGNESIUM 2.1 MG/DL (1.5-2.4); PHOSPHORUS 3.7 MG/DL (2.3-4.5); POTASSIUM 3.7 MMOL/L (3.5-5.1); SODIUM 138 MMOL/L (135-145); TOTAL CARBON DIOXIDE 23.4 MMOL/L (24-32); eGFR 27 ML/MIN
[2022-12-30] MEDS: insulin glargine (Lantus) pen - multi-dose SQ SCH (21:13)
[2022-12-31] VITALS (41 sets, daily range): BP systolic 94–147; BP diastolic 44–59
--- NOTE | 2022-12-31 00:45 | NUR ---
CVVH machine down again. central office operator supervisor notified.
[2022-12-31] MEDS: piperacillin/tazo 3.375gm/50ml 50 ML IV SCH ×2 (01:31→13:16)
[2022-12-31] MEDS: mineral oil/petrolatum ophthal oint EACHEYE SCH ×4 (01:31→20:30)
--- NOTE | 2022-12-31 01:50 | NUR ---
CV back up and running.
[2022-12-31] MEDS: VANCOMYCIN LEVEL IV SCH (02:17)
[2022-12-31] MEDS: insulin regular, human U-100 3ml vial - multi-dose SQ SCH ×3 (02:20→20:40)
[2022-12-31 02:55] LABS: BASOPHILS % (AUTO) 0.1 % (0-1); EOSINOPHILS % (AUTO) 0 % (0-6); HEMATOCRIT 22.5 % (42.0-52.0); HEMOGLOBIN 7.5 g/dl (14.0-17.9); LYMPHOCYTES # (AUTO) 0.7 X10'3 (1.1-4.8); MEAN CORPUSCULAR HEMOGLOBIN 30.4 PG (27.0-31.0); MEAN CORPUSCULAR HGB CONC 33.1 g/dL (33.0-36.5); MEAN CORPUSCULAR VOLUME 91.7 FL (78-98); MEAN PLATELET VOLUME 10.8 FL (7.4-10.4); MONOCYTES # (AUTO) 0.9 X10'3 (0-0.9); NEUTROPHILS # (AUTO) 11.7 X10'3 (1.8-7.7); NEUTROPHILS % (AUTO) 87.9 % (42-75); PLATELET COUNT 70 X10'3 (140-440); RED BLOOD COUNT 2.45 X10'6 (4.70-6.10); RED CELL DISTRIBUTION WIDTH 13.8 % (11.5-14.5); WHITE BLOOD COUNT 13.3 X10'3 (4.5-11.0)
[2022-12-31] MEDS: bicarb dialysis sol 2K+/3 Ca2+ 5,000 ML HE SCH ×11 (02:56→23:47)
[2022-12-31 03:10] LABS: APTT 42 SECONDS (22-32)
[2022-12-31 03:24] LABS: ALBUMIN 3.5 G/DL (3.4-5.0); ALBUMIN/GLOBULIN RATIO 1.6 (1.1-1.5); ALKALINE PHOSPHATASE 57 IU/L (46-116); ANION GAP 14 (8-16); BILIRUBIN,DIRECT 0.5 MG/DL (0-0.3); BILIRUBIN,TOTAL 1.3 MG/DL (0.1-1.0); BLOOD UREA NITROGEN 36 MG/DL (7-18); BUN/CREATININE RATIO 15.7 (5.4-32.0); CALCIUM 8.2 MG/DL (8.5-10.1); CHLORIDE 105 MMOL/L (99-107); CREATININE 2.29 MG/DL (0.60-1.10); GLUCOSE 138 MG/DL (70-104); MAGNESIUM 2.1 MG/DL (1.5-2.4); PHOSPHORUS 3.8 MG/DL (2.3-4.5); POTASSIUM 3.3 MMOL/L (3.5-5.1); PREALBUMIN 10.5 MG/DL (19-36); SODIUM 141 MMOL/L (135-145); TOTAL CARBON DIOXIDE 22.1 MMOL/L (24-32); TOTAL PROTEIN 5.7 G/DL (6.4-8.2); VANCOMYCIN,RANDOM 15.6 UG/ML; eGFR 28 ML/MIN
[2022-12-31 03:29] LABS: ABG HCO3 20.4 mmol/L (22.0-26.0); ABG OXYGEN SATURATION 95.8 % (94-97); ABG PCO2 (T) 25.4 mmHg (35.0-48.0); FCOHb 0.2 % (0.0-3.9); FMetHb 0.5 % (0.0-1.5); FO2Hb 95.1 % (94-97); PATIENT TEMPERATURE 36.3; PEEP 8 cm H2O; RESPIRATORY RATE 24 b/min; TIDAL VOLUME 450 mL; TOTAL HEMOGLOBIN 8.1 G/dl (14.0-17.9)
[2022-12-31 04:22] LABS: ALANINE AMINOTRANSFERASE 1696 U/L (12-78); ASPARTATE AMINO TRANSFERASE 2510 U/L (10-37)
[2022-12-31] MEDS: vasopressin inj. 40 UNIT in normal saline 50ml IV soln 38 ML IV SCH ×2 (05:22→21:24)
--- NOTE | 2022-12-31 05:30 | NUR ---
CVVH alarming and not able to start. Nx service called for help, all recommendations tried and CVVH unable to be restarted. NX service recommended taking down machine and setting up again if none of the recommended actions fixed the problem. computer networking instructor notified, that CVVH machine is taken down again.
--- NOTE | 2022-12-31 06:18 | NUR ---
Problems reprioritized. Patient report given, questions answered & plan of care reviewed with Kathy FLOREZ.
--- NOTE | 2022-12-31 06:30 | NUR ---
Patient in room CICU 2013. I have received report from GAUTAM Baeza and had the opportunity to ask questions and assume patient care. CVVH down at this time. Dialysis nurse to restart at 0800.
[2022-12-31] MEDS: folic acid 1mg/0.2ml inj IV SCH (07:23)
[2022-12-31] MEDS: hydrocortisone sod succ/PF 100mg/2ml inj. IV SCH ×3 (07:24→23:45)
[2022-12-31] MEDS: thiamine 100mg/ml 2ml inj. IV SCH (07:24)
[2022-12-31] MEDS: pantoprazole 40MG/NS 100ML BAG 100 ML IV SCH ×2 (07:24→20:27)
[2022-12-31] MEDS: fludrocortisone acetate 0.1mg tablet OGT SCH (07:25)
[2022-12-31] MEDS: potassium Cl 40MEQ/270ML bag 270 ML IV PRN (07:45)
--- NOTE | 2022-12-31 08:30 | NUR ---
Per omega Trejo to give Erythromycin 250mg Q8H to help with gut motility.
[2022-12-31] MEDS: fentaNYL/NS/PF 2,500 mcg/250mL 250 ML IV PRN ×2 (08:34→21:44)
[2022-12-31] MEDS: erythromycin ethylsuccinate 200mg/5ml 200ml bottle PO SCH ×3 (09:27→23:45)
[2022-12-31 09:53] LABS: BASOPHILS % (AUTO) 0.1 % (0-1); EOSINOPHILS % (AUTO) 0 % (0-6); LYMPHOCYTES # (AUTO) 0.5 X10'3 (1.1-4.8); MEAN CORPUSCULAR HEMOGLOBIN 29.3 PG (27.0-31.0); MEAN CORPUSCULAR HGB CONC 31.9 g/dL (33.0-36.5); MEAN CORPUSCULAR VOLUME 91.8 FL (78-98); MEAN PLATELET VOLUME 10.6 FL (7.4-10.4); MONOCYTES # (AUTO) 0.9 X10'3 (0-0.9); NEUTROPHILS # (AUTO) 11.4 X10'3 (1.8-7.7); NEUTROPHILS % (AUTO) 88.9 % (42-75); RED BLOOD COUNT 2.32 X10'6 (4.70-6.10); WHITE BLOOD COUNT 12.8 X10'3 (4.5-11.0)
[2022-12-31 10:09] LABS: ALBUMIN 3.2 G/DL (3.4-5.0); ANION GAP 10 (8-16); BLOOD UREA NITROGEN 41 MG/DL (7-18); BUN/CREATININE RATIO 16.7 (5.4-32.0); CALCIUM 7.6 MG/DL (8.5-10.1); CHLORIDE 107 MMOL/L (99-107); CREATININE 2.46 MG/DL (0.60-1.10); GLUCOSE 137 MG/DL (70-104); MAGNESIUM 2.1 MG/DL (1.5-2.4); PHOSPHORUS 4.5 MG/DL (2.3-4.5); POTASSIUM 4.7 MMOL/L (3.5-5.1); SODIUM 140 MMOL/L (135-145); TOTAL CARBON DIOXIDE 22.7 MMOL/L (24-32); eGFR 26 ML/MIN
[2022-12-31 10:13] LABS: HEMOGLOBIN 6.8 g/dl (14.0-17.9)
[2022-12-31 10:14] LABS: HEMATOCRIT 21.3 % (42.0-52.0); PLATELET COUNT 50 X10'3 (140-440)
--- NOTE | 2022-12-31 10:31 | NUR ---
Rounds note: Orders to transfuse x1 unit of PRBC.
[2022-12-31 10:59] LABS: ANISOCYTOSIS 1+; LARGE PLATELETS FEW; PLATELET ESTIMATE DECREASED
[2022-12-31 11:00] LABS: POLYCHROMASIA FEW
[2022-12-31] MEDS: NORepinephrine inj. 32 MG in normal saline 250ml IV soln 218 ML IV SCH (12:03)
[2022-12-31 15:40] LABS: BASOPHILS % (AUTO) 0 % (0-1); EOSINOPHILS % (AUTO) 0 % (0-6); HEMATOCRIT 26.9 % (42.0-52.0); HEMOGLOBIN 8.7 g/dl (14.0-17.9); LYMPHOCYTES # (AUTO) 0.6 X10'3 (1.1-4.8); LYMPHOCYTES % (AUTO) 4.3 % (21-51); MEAN CORPUSCULAR HEMOGLOBIN 29.7 PG (27.0-31.0); MEAN CORPUSCULAR HGB CONC 32.2 g/dL (33.0-36.5); MEAN CORPUSCULAR VOLUME 92.1 FL (78-98); MEAN PLATELET VOLUME 10.2 FL (7.4-10.4); MONOCYTES % (AUTO) 7.2 % (2-12); NEUTROPHILS # (AUTO) 12.7 X10'3 (1.8-7.7); NEUTROPHILS % (AUTO) 88.5 % (42-75); RED BLOOD COUNT 2.92 X10'6 (4.70-6.10); RED CELL DISTRIBUTION WIDTH 14.3 % (11.5-14.5); WHITE BLOOD COUNT 14.4 X10'3 (4.5-11.0)
[2022-12-31 15:54] LABS: ALBUMIN 3.5 G/DL (3.4-5.0); ANION GAP 11 (8-16); BLOOD UREA NITROGEN 40 MG/DL (7-18); BUN/CREATININE RATIO 17.4 (5.4-32.0); CALCIUM 7.9 MG/DL (8.5-10.1); CHLORIDE 105 MMOL/L (99-107); GLUCOSE 155 MG/DL (70-104); MAGNESIUM 2.1 MG/DL (1.5-2.4); PHOSPHORUS 3.9 MG/DL (2.3-4.5); SODIUM 139 MMOL/L (135-145); TOTAL CARBON DIOXIDE 23.2 MMOL/L (24-32); eGFR 28 ML/MIN
[2022-12-31 15:57] LABS: PLATELET COUNT 47 X10'3 (140-440)
--- NOTE | 2022-12-31 16:35 | NUR ---
Dr. Mullins aware of the drop in platelet count. No new orders at this time.
[2022-12-31 17:30] LABS: OXYGEN SATURATION (MIXED VEN) 46.2 % (60-80)
--- NOTE | 2022-12-31 17:44 | NUR ---
CVVH machine pressure were high, primary RN and automatic fancy machine operator bedside to try and fix the situation. Patient catheter not drawing back well and both RNs unsuccessful in getting it back up and running. Patient then suddenly started to desaturate to the low 80s. Patient suctioned and placed on 100% FiO2 to help bring saturation back up. Breath sounds equal and clear bilaterally. Patient eventually recovered. No new orders at this time.
--- NOTE | 2022-12-31 18:11 | NUR ---
Problems reprioritized. Patient report given, questions answered & plan of care reviewed with GAUTAM Baeza.
--- NOTE | 2022-12-31 18:13 | NUR ---
Patient in room CICU 2013. I have received report from Kathy FLOREZ and had the opportunity to ask questions and assume patient care.
--- NOTE | 2022-12-31 18:42 | NUR ---
CV started at 1834.
[2022-12-31] MEDS: sennosides/docusate sodium tablet OGT SCH (20:27)
[2022-12-31] MEDS: insulin glargine (Lantus) pen - multi-dose SQ SCH (20:40)
[2022-12-31 21:22] LABS: BASOPHILS % (AUTO) 0 % (0-1); EOSINOPHILS % (AUTO) 0 % (0-6); HEMATOCRIT 25.5 % (42.0-52.0); HEMOGLOBIN 8.6 g/dl (14.0-17.9); LYMPHOCYTES # (AUTO) 0.7 X10'3 (1.1-4.8); LYMPHOCYTES % (AUTO) 4.9 % (21-51); MEAN CORPUSCULAR HEMOGLOBIN 31.4 PG (27.0-31.0); MEAN CORPUSCULAR HGB CONC 33.8 g/dL (33.0-36.5); MEAN PLATELET VOLUME 10.4 FL (7.4-10.4); MONOCYTES % (AUTO) 6.8 % (2-12); NEUTROPHILS # (AUTO) 12.9 X10'3 (1.8-7.7); NEUTROPHILS % (AUTO) 88.3 % (42-75); RED BLOOD COUNT 2.74 X10'6 (4.70-6.10); RED CELL DISTRIBUTION WIDTH 14.2 % (11.5-14.5); WHITE BLOOD COUNT 14.6 X10'3 (4.5-11.0)
[2022-12-31 21:24] LABS: ALBUMIN 3.5 G/DL (3.4-5.0); ANION GAP 11 (8-16); BLOOD UREA NITROGEN 42 MG/DL (7-18); BUN/CREATININE RATIO 17.6 (5.4-32.0); CALCIUM 7.9 MG/DL (8.5-10.1); CHLORIDE 105 MMOL/L (99-107); CREATININE 2.39 MG/DL (0.60-1.10); GLUCOSE 154 MG/DL (70-104); PHOSPHORUS 3.6 MG/DL (2.3-4.5); POTASSIUM 3.9 MMOL/L (3.5-5.1); SODIUM 140 MMOL/L (135-145); TOTAL CARBON DIOXIDE 24.3 MMOL/L (24-32); eGFR 27 ML/MIN
[2022-12-31 21:29] LABS: PLATELET COUNT 42 X10'3 (140-440)
[2023-01-01] VITALS (34 sets, daily range): BP systolic 94–135; BP diastolic 43–60
[2023-01-01] MEDS: piperacillin/tazo 3.375gm/50ml 50 ML IV SCH ×2 (01:07→14:50)
[2023-01-01] MEDS: VANCOMYCIN LEVEL IV SCH (02:11)
[2023-01-01] MEDS: mineral oil/petrolatum ophthal oint EACHEYE SCH ×4 (02:11→20:42)
[2023-01-01] MEDS: insulin regular, human U-100 3ml vial - multi-dose SQ SCH ×3 (02:18→20:40)
[2023-01-01 03:07] LABS: BASOPHILS % (AUTO) 0 % (0-1); EOSINOPHILS % (AUTO) 0 % (0-6); HEMATOCRIT 25.5 % (42.0-52.0); HEMOGLOBIN 8.4 g/dl (14.0-17.9); LYMPHOCYTES # (AUTO) 0.8 X10'3 (1.1-4.8); LYMPHOCYTES % (AUTO) 5.7 % (21-51); MEAN CORPUSCULAR HEMOGLOBIN 30.6 PG (27.0-31.0); MEAN CORPUSCULAR VOLUME 92.8 FL (78-98); MEAN PLATELET VOLUME 10.6 FL (7.4-10.4); MONOCYTES % (AUTO) 7.2 % (2-12); NEUTROPHILS # (AUTO) 12.3 X10'3 (1.8-7.7); NEUTROPHILS % (AUTO) 87.1 % (42-75); RED BLOOD COUNT 2.75 X10'6 (4.70-6.10); RED CELL DISTRIBUTION WIDTH 14.6 % (11.5-14.5); WHITE BLOOD COUNT 14.1 X10'3 (4.5-11.0)
[2023-01-01 03:18] LABS: PLATELET COUNT 40 X10'3 (140-440)
[2023-01-01 03:23] LABS: APTT 48 SECONDS (22-32)
[2023-01-01 03:46] LABS: ABG BASE EXCESS -2.9 mmol/L (-2.0-2.0); ABG HCO3 21.1 mmol/L (22.0-26.0); ABG OXYGEN SATURATION 96.7 % (94-97); ABG PCO2 (T) 33.2 mmHg (35.0-48.0); ABG PO2 (T) 97.7 mmHg (75.0-100.0); FCOHb 0.3 % (0.0-3.9); FMetHb 0.1 % (0.0-1.5); FO2Hb 96.3 % (94-97); PEEP 6 cm H2O; RESPIRATORY RATE 24 b/min; TIDAL VOLUME 450 mL
[2023-01-01 03:56] LABS: ALBUMIN 3.5 G/DL (3.4-5.0); ALBUMIN/GLOBULIN RATIO 1.6 (1.1-1.5); ALKALINE PHOSPHATASE 76 IU/L (46-116); ANION GAP 11 (8-16); BILIRUBIN,TOTAL 2.1 MG/DL (0.1-1.0); BLOOD UREA NITROGEN 43 MG/DL (7-18); BUN/CREATININE RATIO 19.6 (5.4-32.0); CHLORIDE 104 MMOL/L (99-107); CREATININE 2.19 MG/DL (0.60-1.10); GLUCOSE 270 MG/DL (70-104); MAGNESIUM 2.1 MG/DL (1.5-2.4); PHOSPHORUS 3.4 MG/DL (2.3-4.5); POTASSIUM 3.9 MMOL/L (3.5-5.1); SODIUM 139 MMOL/L (135-145); TOTAL CARBON DIOXIDE 23.7 MMOL/L (24-32); TOTAL PROTEIN 5.7 G/DL (6.4-8.2); VANCOMYCIN,RANDOM 8.4 UG/ML; eGFR 30 ML/MIN
[2023-01-01 03:59] LABS: ALANINE AMINOTRANSFERASE 1717 U/L (12-78); ASPARTATE AMINO TRANSFERASE 1621 U/L (10-37)
[2023-01-01] MEDS: bicarb dialysis sol 2K+/3 Ca2+ 5,000 ML HE SCH ×7 (05:04→14:57)
--- NOTE | 2023-01-01 05:33 | NUR ---
CVVH down for high venous access. Air noted in access line. mainspring former notified, states she will contact turbo electric operator.
--- NOTE | 2023-01-01 06:12 | NUR ---
Problems reprioritized. Patient report given, questions answered & plan of care reviewed with Kathy FLOREZ.
[2023-01-01] MEDS: fludrocortisone acetate 0.1mg tablet OGT SCH (07:07)
[2023-01-01] MEDS: hydrocortisone sod succ/PF 100mg/2ml inj. IV SCH ×2 (07:09→17:11)
[2023-01-01] MEDS: thiamine 100mg/ml 2ml inj. IV SCH (07:09)
[2023-01-01] MEDS: pantoprazole 40MG/NS 100ML BAG 100 ML IV SCH ×2 (07:09→19:58)
[2023-01-01] MEDS: folic acid 1mg/0.2ml inj IV SCH (07:09)
[2023-01-01] MEDS: erythromycin ethylsuccinate 200mg/5ml 200ml bottle PO SCH ×2 (07:09→16:00)
--- NOTE | 2023-01-01 08:57 | NUR ---
Dr. Mullins rounded on the patient and stated to turn off the sedation completely to wake the patient up. RN attempted to express to MD that the patient's CVVH does not run when the patient is wide awake because when he bears down it disrupts the flow of the machine and then it goes down. Dr. Mullins stated to turn the sedation off anyway.
[2023-01-01] MEDS ORDERED: vancomycin/NS 1 GM ADD-VANTAGE 250 ML X 1 DOSE IV ONE (10:00)
--- NOTE | 2023-01-01 10:19 | NUR ---
Rounds note: Dr. Mullins would like Dr. Jernigan to address placing a TDC or a Leonard in the left IJ. He also would like to know if Dr. Jernigan would want to increase the amount of fluid that we take off each hour with CVVH. Plt count of [address] Mullins did not give any new orders regarding this.
[2023-01-01] MEDS ORDERED: heparin 1,000unit/ml 10ml vial 10 ML ONE (12:35)
[2023-01-01] MEDS: fentaNYL/NS/PF 2,500 mcg/250mL 250 ML IV PRN (12:51)
[2023-01-01] MEDS ORDERED: fludrocortisone acetate 0.1mg tablet OGT SCH (15:27)
[2023-01-01] MEDS: Duosol 4K/3 Ca (w/calcium) 5,000 ML HE SCH ×4 (16:00→23:05)
--- NOTE | 2023-01-01 18:10 | NUR ---
Patient in room CICU 2013. I have received report from Kathy FLOREZ and had the opportunity to ask questions and assume patient care.
[2023-01-01] MEDS: NORepinephrine inj. 32 MG in normal saline 250ml IV soln 218 ML IV SCH (19:22)
[2023-01-01] MEDS: sennosides/docusate sodium tablet OGT SCH (20:00)
[2023-01-01] MEDS: insulin glargine (Lantus) pen - multi-dose SQ SCH (20:41)
[2023-01-01 20:58] LABS: HEMOGLOBIN 7.6 g/dl (14.0-17.9)
[2023-01-01 21:00] LABS: BASOPHILS % (AUTO) 0 % (0-1); EOSINOPHILS % (AUTO) 0 % (0-6); HEMATOCRIT 23.8 % (42.0-52.0); LYMPHOCYTES # (AUTO) 1.1 X10'3 (1.1-4.8); LYMPHOCYTES % (AUTO) 5.3 % (21-51); MEAN CORPUSCULAR HEMOGLOBIN 29.5 PG (27.0-31.0); MEAN CORPUSCULAR HGB CONC 31.8 g/dL (33.0-36.5); MEAN CORPUSCULAR VOLUME 92.8 FL (78-98); MEAN PLATELET VOLUME 10.1 FL (7.4-10.4); MONOCYTES # (AUTO) 1.7 X10'3 (0-0.9); MONOCYTES % (AUTO) 8.2 % (2-12); NEUTROPHILS # (AUTO) 17.9 X10'3 (1.8-7.7); NEUTROPHILS % (AUTO) 86.5 % (42-75); RED BLOOD COUNT 2.56 X10'6 (4.70-6.10); RED CELL DISTRIBUTION WIDTH 14.5 % (11.5-14.5); WHITE BLOOD COUNT 20.7 X10'3 (4.5-11.0)
[2023-01-01 21:07] LABS: PLATELET COUNT 38 X10'3 (140-440)
[2023-01-01 21:14] LABS: ALBUMIN 3.1 G/DL (3.4-5.0); ANION GAP 9 (8-16); BLOOD UREA NITROGEN 57 MG/DL (7-18); BUN/CREATININE RATIO 23.6 (5.4-32.0); CALCIUM 7.9 MG/DL (8.5-10.1); CHLORIDE 106 MMOL/L (99-107); CREATININE 2.42 MG/DL (0.60-1.10); GLUCOSE 195 MG/DL (70-104); PHOSPHORUS 1.7 MG/DL (2.3-4.5); POTASSIUM 3.6 MMOL/L (3.5-5.1); SODIUM 141 MMOL/L (135-145); TOTAL CARBON DIOXIDE 25.9 MMOL/L (24-32); eGFR 26 ML/MIN
[2023-01-02] VITALS (33 sets, daily range): BP systolic 98–134; BP diastolic 42–66
[2023-01-02] MEDS: erythromycin ethylsuccinate 200mg/5ml 200ml bottle PO SCH ×3 (00:30→16:48)
[2023-01-02] MEDS: hydrocortisone sod succ/PF 100mg/2ml inj. IV SCH ×4 (00:30→23:55)
[2023-01-02] MEDS: fentaNYL/NS/PF 2,500 mcg/250mL 250 ML IV PRN ×2 (01:05→12:34)
[2023-01-02] MEDS: piperacillin/tazo 3.375gm/50ml 50 ML IV SCH ×2 (01:05→12:54)
[2023-01-02] MEDS: insulin regular, human U-100 3ml vial - multi-dose SQ SCH ×4 (02:17→20:38)
[2023-01-02] MEDS: mineral oil/petrolatum ophthal oint EACHEYE SCH ×4 (02:17→20:00)
[2023-01-02 02:41] LABS: EOSINOPHILS % (AUTO) 0 % (0-6); HEMOGLOBIN 7.8 g/dl (14.0-17.9); LYMPHOCYTES # (AUTO) 1.1 X10'3 (1.1-4.8); LYMPHOCYTES % (AUTO) 5.1 % (21-51); MONOCYTES # (AUTO) 2.2 X10'3 (0-0.9); NEUTROPHILS % (AUTO) 84.4 % (42-75)
[2023-01-02 02:43] LABS: BASOPHILS % (AUTO) 0.1 % (0-1); HEMATOCRIT 23.7 % (42.0-52.0); MEAN CORPUSCULAR HEMOGLOBIN 30.4 PG (27.0-31.0); MEAN CORPUSCULAR HGB CONC 32.7 g/dL (33.0-36.5); MEAN PLATELET VOLUME 10.5 FL (7.4-10.4); MONOCYTES % (AUTO) 10.4 % (2-12); NEUTROPHILS # (AUTO) 17.5 X10'3 (1.8-7.7); RED BLOOD COUNT 2.55 X10'6 (4.70-6.10); RED CELL DISTRIBUTION WIDTH 14.2 % (11.5-14.5); WHITE BLOOD COUNT 20.8 X10'3 (4.5-11.0)
[2023-01-02 02:46] LABS: APTT 39 SECONDS (22-32)
[2023-01-02 02:47] LABS: PLATELET COUNT 46 X10'3 (140-440)
[2023-01-02] MEDS: VANCOMYCIN LEVEL IV SCH (03:00)
[2023-01-02 03:05] LABS: ABG HCO3 24.4 mmol/L (22.0-26.0); ABG PCO2 (T) 34.2 mmHg (35.0-48.0); ABG PO2 (T) 121.9 mmHg (75.0-100.0); FCOHb 0.3 % (0.0-3.9); FMetHb 0.5 % (0.0-1.5); FO2Hb 97.2 % (94-97); PATIENT TEMPERATURE 37.3; PEEP 6 cm H2O; RESPIRATORY RATE 18 b/min; TIDAL VOLUME 450 mL; TOTAL HEMOGLOBIN 8.5 G/dl (14.0-17.9)
[2023-01-02 03:06] LABS: ALBUMIN 3.2 G/DL (3.4-5.0); ALBUMIN/GLOBULIN RATIO 1.4 (1.1-1.5); ALKALINE PHOSPHATASE 92 IU/L (46-116); ANION GAP 10 (8-16); ASPARTATE AMINO TRANSFERASE 740 U/L (10-37); BILIRUBIN,TOTAL 1.5 MG/DL (0.1-1.0); BLOOD UREA NITROGEN 49 MG/DL (7-18); CALCIUM 8.1 MG/DL (8.5-10.1); CHLORIDE 105 MMOL/L (99-107); CREATININE 2.23 MG/DL (0.60-1.10); GLUCOSE 156 MG/DL (70-104); MAGNESIUM 1.9 MG/DL (1.5-2.4); PHOSPHORUS 2.9 MG/DL (2.3-4.5); POTASSIUM 3.6 MMOL/L (3.5-5.1); SODIUM 141 MMOL/L (135-145); TOTAL CARBON DIOXIDE 25.9 MMOL/L (24-32); TOTAL PROTEIN 5.5 G/DL (6.4-8.2); VANCOMYCIN,RANDOM 15.8 UG/ML; eGFR 29 ML/MIN
[2023-01-02 03:08] LABS: ALANINE AMINOTRANSFERASE 1192 U/L (12-78)
[2023-01-02 04:13] LABS: NUCLEATED RED BLOOD CELLS 1 /100WBC (0-0); PLATELET ESTIMATE DECREASED; TOTAL CELLS COUNTED 100
[2023-01-02] MEDS: potassium Cl 40MEQ/270ML bag 270 ML IV PRN ×2 (04:49→22:35)
[2023-01-02] MEDS: Duosol 4K/3 Ca (w/calcium) 5,000 ML HE SCH ×8 (06:15→19:42)
--- NOTE | 2023-01-02 06:16 | NUR ---
Problems reprioritized. Patient report given, questions answered & plan of care reviewed with Kathy FLOREZ.
--- NOTE | 2023-01-02 06:30 | NUR ---
Patient in room CICU 2013. I have received report from GAUTAM Baeza and had the opportunity to ask questions and assume patient care.
--- NOTE | 2023-01-02 07:13 | NUR ---
Patient , Catina called to get an update on the patient. All questions answered. She stated she will be by this afternoon to see the patient.
[2023-01-02] MEDS ORDERED: EPOETIN ALFA-EPBX 20,000 UNIT/ML 1 ML MDV SQ SCH (08:00)
[2023-01-02] MEDS: fludrocortisone acetate 0.1mg tablet OGT SCH (08:11)
[2023-01-02] MEDS: pantoprazole 40MG/NS 100ML BAG 100 ML IV SCH ×2 (08:12→20:24)
[2023-01-02] MEDS: folic acid 1mg/0.2ml inj IV SCH (08:12)
[2023-01-02] MEDS: thiamine 100mg/ml 2ml inj. IV SCH (08:12)
--- NOTE | 2023-01-02 08:30 | NUR ---
Dr. Mullins rounded on patient and stated that he felt the Fentanyl at 230mcg/hr was too much for the patient, RN asked what rate he would like that to be running at and he replied, "I don't know but that seems like way too much". RN stated that the Fentanyl would be turned down to 100mcg/hr and he stated "okay".
--- NOTE | 2023-01-02 10:26 | NUR ---
Rounds note: Patient not appropriate for extubation today due to the patient's increased sputum production. Continue to wean sedation. Continue to wean pressors. D/C art line.
[2023-01-02 10:29] LABS: BASOPHILS % (AUTO) 0 % (0-1); HEMOGLOBIN 7.7 g/dl (14.0-17.9); RED CELL DISTRIBUTION WIDTH 14.3 % (11.5-14.5)
[2023-01-02 10:31] LABS: EOSINOPHILS % (AUTO) 0 % (0-6); HEMATOCRIT 23.6 % (42.0-52.0); LYMPHOCYTES # (AUTO) 0.8 X10'3 (1.1-4.8); LYMPHOCYTES % (AUTO) 4.2 % (21-51); MEAN CORPUSCULAR HEMOGLOBIN 30.3 PG (27.0-31.0); MEAN CORPUSCULAR HGB CONC 32.5 g/dL (33.0-36.5); MEAN CORPUSCULAR VOLUME 93.3 FL (78-98); MEAN PLATELET VOLUME 10.1 FL (7.4-10.4); MONOCYTES # (AUTO) 1.5 X10'3 (0-0.9); NEUTROPHILS # (AUTO) 16.3 X10'3 (1.8-7.7); NEUTROPHILS % (AUTO) 87.8 % (42-75); RED BLOOD COUNT 2.53 X10'6 (4.70-6.10); WHITE BLOOD COUNT 18.5 X10'3 (4.5-11.0)
[2023-01-02 10:36] LABS: PLATELET COUNT 30 X10'3 (140-440)
[2023-01-02 10:39] LABS: ALBUMIN 3.2 G/DL (3.4-5.0); BLOOD UREA NITROGEN 42 MG/DL (7-18); BUN/CREATININE RATIO 21.9 (5.4-32.0); CALCIUM 8.1 MG/DL (8.5-10.1); CHLORIDE 107 MMOL/L (99-107); CREATININE 1.92 MG/DL (0.60-1.10); GLUCOSE 185 MG/DL (70-104); MAGNESIUM 1.9 MG/DL (1.5-2.4); PHOSPHORUS 2.2 MG/DL (2.3-4.5); TOTAL CARBON DIOXIDE 27.8 MMOL/L (24-32); eGFR 35 ML/MIN
--- NOTE | 2023-01-02 10:46 | NUR ---
Patient plt count of 30. Dr. Mullins aware. No new orders at this time.
[2023-01-02 10:55] LABS: ANION GAP 5 (8-16); SODIUM 140 MMOL/L (135-145)
--- NOTE | 2023-01-02 11:05 | NUR ---
Patient thrashing around and reaching to pull on the TDC and ETT. Patient extremely agitated and unable to be redirected. Per Dr. Mullins no other medication should be on board for sedation other than Fentanyl. During patient being agitated and appearing to be in patient a Fentanyl bolus of 50mcg given and no resolve in patient behavior. Patient then became tachycardic and tachypneic. Patient Fentanyl returned to previous rate of 230mcg/hr which is the rate he was on when Dr. Mullins first rounded this morning. At this previous rate the patient was originally was able to open his eyes and move all extremities still. Will inform MD of turn of events.
--- NOTE | 2023-01-02 11:39 | NUR ---
Dr. Mullins informed of the patient Fentanyl being turned back up and stated, "that's fine"
--- NOTE | 2023-01-02 11:53 | NUR ---
, Catina bedside as well as their son. Questions answered and education provided.
--- NOTE | 2023-01-02 12:18 | NUR ---
Reassessment: Pt remains intubated and tolerating TF at goal rate with GRV WNL. Pt continues with CVVH at this time. Per RN hopeful that pressors will be able to be weaned. Per EMR LBM 12/26 though RN reports pt with a small BM this morning. Pt started on routine Senna-S 12/30 and Erythromycin 12/31. Will continue to follow and make recommendations as appropriate. Recommendations: 1) Continuous TF per MD using Pivot 1.5 at 65 ml/hr goal to provide 1560 ml volume/day, 2340 kcal, 1170 ml water, and 146 g protein. 2) Additional water flush per physician; on CVVH 3) Routine Thiamine and Folic acid for EtOH hx with elevated MCV; add routine MVI when available- MD weiss 12/28 4) PALB Q /; Daily scaled weights 5) Routine bowel care and Erythromycin per MD; small BM 01/02 per RN 6) DM education if appropriate following extubation, A1c 10.7% hx dementia though independent and cognizant per RN Addendum: 01/02/23 at [address] Amended: Links added.
[2023-01-02 15:18] LABS: BASOPHILS % (AUTO) 0.1 % (0-1); EOSINOPHILS % (AUTO) 0 % (0-6); LYMPHOCYTES # (AUTO) 0.8 X10'3 (1.1-4.8); RED CELL DISTRIBUTION WIDTH 14.5 % (11.5-14.5)
[2023-01-02 15:20] LABS: HEMATOCRIT 23.9 % (42.0-52.0); HEMOGLOBIN 7.9 g/dl (14.0-17.9); LYMPHOCYTES % (AUTO) 3.2 % (21-51); MEAN CORPUSCULAR HEMOGLOBIN 30.5 PG (27.0-31.0); MEAN CORPUSCULAR HGB CONC 33.1 g/dL (33.0-36.5); MEAN CORPUSCULAR VOLUME 91.9 FL (78-98); MEAN PLATELET VOLUME 8.1 FL (7.4-10.4); MONOCYTES # (AUTO) 2.5 X10'3 (0-0.9); NEUTROPHILS # (AUTO) 21.3 X10'3 (1.8-7.7); NEUTROPHILS % (AUTO) 86.7 % (42-75); RED BLOOD COUNT 2.61 X10'6 (4.70-6.10); WHITE BLOOD COUNT 24.6 X10'3 (4.5-11.0)
[2023-01-02 15:29] LABS: PLATELET COUNT 26 X10'3 (140-440)
[2023-01-02 15:30] LABS: ALBUMIN 3.3 G/DL (3.4-5.0); ANION GAP 5 (8-16); BLOOD UREA NITROGEN 39 MG/DL (7-18); CALCIUM 8.5 MG/DL (8.5-10.1); CHLORIDE 105 MMOL/L (99-107); CREATININE 1.86 MG/DL (0.60-1.10); GLUCOSE 191 MG/DL (70-104); MAGNESIUM 1.8 MG/DL (1.5-2.4); PHOSPHORUS 1.8 MG/DL (2.3-4.5); POTASSIUM 3.8 MMOL/L (3.5-5.1); SODIUM 140 MMOL/L (135-145); TOTAL CARBON DIOXIDE 29.6 MMOL/L (24-32); eGFR 36 ML/MIN
--- NOTE | 2023-01-02 15:30 | NUR ---
Called Dr. Mullins about the patient's plt count of 26. No new orders.
[2023-01-02] MEDS ORDERED: sodium phosphate inj. 30 MMOL in dextrose 5%-water 250 ML IV PRN (15:55)
[2023-01-02] MEDS ORDERED: propofol 1000mg/100ml bottle 100 ML IV SCH (18:55)
--- NOTE | 2023-01-02 20:17 | NUR ---
Filter done due high balance chamber pressures, very large clog in filter, unable to remove. I was able to return his blood though. HD RN on the floor and aware, will replace filter when she's done with her run on another patient.
[2023-01-02] MEDS: insulin glargine (Lantus) pen - multi-dose SQ SCH (20:39)
[2023-01-02] MEDS: vasopressin inj. 40 UNIT in normal saline 50ml IV soln 38 ML IV SCH ×2 (20:45→22:35)
[2023-01-02 20:58] LABS: EOSINOPHILS % (AUTO) 0 % (0-6); HEMOGLOBIN 7.6 g/dl (14.0-17.9); LYMPHOCYTES # (AUTO) 0.8 X10'3 (1.1-4.8)
[2023-01-02 21:00] LABS: BASOPHILS % (AUTO) 0 % (0-1); HEMATOCRIT 23.1 % (42.0-52.0); LYMPHOCYTES % (AUTO) 3.3 % (21-51); MEAN CORPUSCULAR HEMOGLOBIN 30.7 PG (27.0-31.0); MEAN CORPUSCULAR HGB CONC 32.9 g/dL (33.0-36.5); MEAN CORPUSCULAR VOLUME 93.3 FL (78-98); MEAN PLATELET VOLUME 9.2 FL (7.4-10.4); MONOCYTES # (AUTO) 2.7 X10'3 (0-0.9); MONOCYTES % (AUTO) 10.7 % (2-12); RED BLOOD COUNT 2.47 X10'6 (4.70-6.10); RED CELL DISTRIBUTION WIDTH 14.2 % (11.5-14.5)
[2023-01-02 21:12] LABS: PLATELET COUNT 28 X10'3 (140-440)
[2023-01-02 21:13] LABS: WHITE BLOOD COUNT 25.6 X10'3 (4.5-11.0)
[2023-01-02 21:19] LABS: ALBUMIN 3.1 G/DL (3.4-5.0); ANION GAP 7 (8-16); BLOOD UREA NITROGEN 38 MG/DL (7-18); BUN/CREATININE RATIO 20.7 (5.4-32.0); CHLORIDE 106 MMOL/L (99-107); CREATININE 1.84 MG/DL (0.60-1.10); GLUCOSE 189 MG/DL (70-104); MAGNESIUM 1.9 MG/DL (1.5-2.4); PHOSPHORUS 3.2 MG/DL (2.3-4.5); POTASSIUM 3.9 MMOL/L (3.5-5.1); SODIUM 142 MMOL/L (135-145); TOTAL CARBON DIOXIDE 28.7 MMOL/L (24-32); eGFR 36 ML/MIN
[2023-01-02 21:21] LABS: FERRITIN 147 NG/ML (26-388)
[2023-01-02] MEDS: NORepinephrine inj. 32 MG in normal saline 250ml IV soln 218 ML IV SCH (21:25)
[2023-01-02 21:39] LABS: % IRON SATURATION 21 % (11-46); IRON 37 UG/DL (53-167); TOTAL IRON BINDING CAPACITY 176 UG/DL (259-388)
--- NOTE | 2023-01-02 23:40 | NUR ---
Pt's FiO2 down to 25%. His weight is lower than his admit weight and his CVP is not substantially high. Given that he's still on 2 vasopressors (and I had to go up with Levophed) I am going to try and keep more even vs pulling 100 ml an hour.
[2023-01-03] VITALS (29 sets, daily range): BP systolic 77–142; BP diastolic 39–71
[2023-01-03] MEDS: piperacillin/tazo 3.375gm/50ml 50 ML IV SCH ×2 (00:23→13:02)
[2023-01-03] MEDS: mineral oil/petrolatum ophthal oint EACHEYE SCH ×2 (02:00→07:34)
[2023-01-03] MEDS: insulin regular, human U-100 3ml vial - multi-dose SQ SCH ×2 (02:20→07:47)
[2023-01-03 02:27] LABS: BASOPHILS % (AUTO) 0.1 % (0-1); EOSINOPHILS % (AUTO) 0 % (0-6); WHITE BLOOD COUNT 20.9 X10'3 (4.5-11.0)
[2023-01-03 02:28] LABS: HEMOGLOBIN 7.4 g/dl (14.0-17.9); LYMPHOCYTES # (AUTO) 1.2 X10'3 (1.1-4.8); LYMPHOCYTES % (AUTO) 5.8 % (21-51); MEAN CORPUSCULAR HEMOGLOBIN 30.3 PG (27.0-31.0); MEAN CORPUSCULAR HGB CONC 32.4 g/dL (33.0-36.5); MEAN CORPUSCULAR VOLUME 93.6 FL (78-98); MEAN PLATELET VOLUME 10.1 FL (7.4-10.4); MONOCYTES % (AUTO) 9.4 % (2-12); NEUTROPHILS # (AUTO) 17.7 X10'3 (1.8-7.7); NEUTROPHILS % (AUTO) 84.7 % (42-75); RED BLOOD COUNT 2.46 X10'6 (4.70-6.10); RED CELL DISTRIBUTION WIDTH 14.6 % (11.5-14.5)
[2023-01-03 02:33] LABS: PLATELET COUNT 33 X10'3 (140-440)
[2023-01-03] MEDS: VANCOMYCIN LEVEL IV SCH (02:33)
[2023-01-03 02:38] LABS: APTT 38 SECONDS (22-32)
[2023-01-03 02:39] LABS: ALANINE AMINOTRANSFERASE 906 U/L (12-78); ALBUMIN/GLOBULIN RATIO 1.3 (1.1-1.5); ALKALINE PHOSPHATASE 90 IU/L (46-116); ANION GAP 6 (8-16); ASPARTATE AMINO TRANSFERASE 500 U/L (10-37); BILIRUBIN,TOTAL 1.6 MG/DL (0.1-1.0); BLOOD UREA NITROGEN 34 MG/DL (7-18); CALCIUM 8.1 MG/DL (8.5-10.1); CHLORIDE 108 MMOL/L (99-107); GLUCOSE 132 MG/DL (70-104); MAGNESIUM 1.9 MG/DL (1.5-2.4); PHOSPHORUS 2.5 MG/DL (2.3-4.5); POTASSIUM 4.3 MMOL/L (3.5-5.1); SODIUM 143 MMOL/L (135-145); TOTAL CARBON DIOXIDE 28.6 MMOL/L (24-32); TOTAL PROTEIN 5.4 G/DL (6.4-8.2); TRIGLYCERIDES 34 MG/DL (20-135); VANCOMYCIN,RANDOM 7.9 UG/ML; eGFR 40 ML/MIN
[2023-01-03 03:28] LABS: ABG BASE EXCESS -0.9 mmol/L (-2.0-2.0); ABG HCO3 22.8 mmol/L (22.0-26.0); ABG PCO2 (T) 32.8 mmHg (35.0-48.0); ABG PO2 (T) 66.1 mmHg (75.0-100.0); ALLEN'S TEST POSITIVE; FCOHb 0.1 % (0.0-3.9); FMetHb 0.2 % (0.0-1.5); FO2Hb 92.7 % (94-97); PATIENT TEMPERATURE 36.4; PEEP 6 cm H2O; RESPIRATORY RATE 18 b/min; TIDAL VOLUME 450 mL; TOTAL HEMOGLOBIN 8.3 G/dl (14.0-17.9)
--- NOTE | 2023-01-03 03:33 | NUR ---
Attempted to turn of Vasopressin multiple times t/o the night seeing as how it's only at 0.01 units/min but his BP never really tolerates it so unfortunately I had to leave it on. Libby increased t/o the night. Initially to make up for starting Propofol which he is sensative to but also I believe he's more on the intravascular dry side seeing as how his CVP has come down to 7-8 thus I stopped pulling fluid around midnight.
[2023-01-03] MEDS: Duosol 4K/3 Ca (w/calcium) 5,000 ML HE SCH ×4 (04:46→04:52)
[2023-01-03 04:49] LABS: NUCLEATED RED BLOOD CELLS 2 /100WBC (0-0); TOTAL CELLS COUNTED 100
[2023-01-03 04:52] LABS: ANISOCYTOSIS 1+; PLATELET ESTIMATE DECREASED; POLYCHROMASIA FEW
[2023-01-03 04:53] LABS: LARGE PLATELETS FEW
[2023-01-03] MEDS: pantoprazole 40MG/NS 100ML BAG 100 ML IV SCH ×2 (07:33→20:23)
[2023-01-03] MEDS: hydrocortisone sod succ/PF 100mg/2ml inj. IV SCH ×2 (07:34→15:32)
[2023-01-03] MEDS: thiamine 100mg/ml 2ml inj. IV SCH (07:34)
[2023-01-03] MEDS: folic acid 1mg/0.2ml inj IV SCH (07:34)
[2023-01-03] MEDS: fludrocortisone acetate 0.1mg tablet OGT SCH (07:34)
[2023-01-03] MEDS ORDERED: vancomycin/NS 1 GM ADD-VANTAGE 250 ML X 1 DOSE IV ONE (07:45)
[2023-01-03 09:55] LABS: BASOPHILS % (AUTO) 0.1 % (0-1); EOSINOPHILS % (AUTO) 0 % (0-6); LYMPHOCYTES # (AUTO) 0.9 X10'3 (1.1-4.8); MEAN CORPUSCULAR HGB CONC 32.6 g/dL (33.0-36.5); MONOCYTES # (AUTO) 2.3 X10'3 (0-0.9); RED BLOOD COUNT 2.52 X10'6 (4.70-6.10); RED CELL DISTRIBUTION WIDTH 14.6 % (11.5-14.5)
[2023-01-03 09:56] LABS: HEMATOCRIT 23.8 % (42.0-52.0); HEMOGLOBIN 7.8 g/dl (14.0-17.9); LYMPHOCYTES % (AUTO) 3.9 % (21-51); MEAN CORPUSCULAR HEMOGLOBIN 30.8 PG (27.0-31.0); MEAN CORPUSCULAR VOLUME 94.4 FL (78-98); MEAN PLATELET VOLUME 10.5 FL (7.4-10.4); MONOCYTES % (AUTO) 9.7 % (2-12); NEUTROPHILS # (AUTO) 20.4 X10'3 (1.8-7.7); NEUTROPHILS % (AUTO) 86.3 % (42-75); WHITE BLOOD COUNT 23.6 X10'3 (4.5-11.0)
[2023-01-03 10:00] LABS: PLATELET COUNT 43 X10'3 (140-440)
[2023-01-03 10:12] LABS: ALBUMIN 3.1 G/DL (3.4-5.0); ANION GAP 7 (8-16); BLOOD UREA NITROGEN 34 MG/DL (7-18); BUN/CREATININE RATIO 20.6 (5.4-32.0); CALCIUM 8.3 MG/DL (8.5-10.1); CHLORIDE 104 MMOL/L (99-107); CREATININE 1.65 MG/DL (0.60-1.10); GLUCOSE 296 MG/DL (70-104); MAGNESIUM 1.7 MG/DL (1.5-2.4); PHOSPHORUS 1.5 MG/DL (2.3-4.5); POTASSIUM 4.2 MMOL/L (3.5-5.1); SODIUM 139 MMOL/L (135-145); TOTAL CARBON DIOXIDE 28.5 MMOL/L (24-32); eGFR 41 ML/MIN
[2023-01-03 10:23] LABS: TOTAL CELLS COUNTED 100
[2023-01-03 10:24] LABS: LYMPHOCYTES % (MANUAL) 3 % (21-51)
[2023-01-03 10:26] LABS: ANISOCYTOSIS 1+; PLATELET ESTIMATE DECREASED
[2023-01-03] MEDS: magnesium 4gm in 100ml NS 100 ML IV PRN (10:26)
[2023-01-03] MEDS ORDERED: sodium phosphate inj. 30 MMOL in dextrose 5%-water 250 ML IV ONE (11:00)
[2023-01-03] MEDS ORDERED: heparin 1,000 units/ml 10ml inj HE ONE ×2 (12:15)
--- NOTE | 2023-01-03 14:29 | NUR ---
Patient becoming agitated and pulling at CVL/TDC/FC/Rectal tube and other lines. When educated on the risks of pulling the lines out he became combative, attempting to kick and hit staff. Dr. Mullins notified with orders to restart restraints and initiate a Precedex drip. Family at bedside with little help.
[2023-01-03] MEDS ORDERED: dexmedetomidin/NS 400mcg/100ml 100 ML IV SCH (14:32)
[2023-01-03] MEDS: dexmedetomidine inj. 400 MCG in normal saline 100ml IV soln 96 ML IV SCH (15:00)
--- NOTE | 2023-01-03 18:23 | NUR ---
Problems reprioritized. Patient report given, questions answered & plan of care reviewed with Geena FLOREZ.
--- NOTE | 2023-01-03 18:25 | NUR ---
Patient in room CICU 2013. I have received report from GAUTAM Casas and had the opportunity to ask questions and assume patient care.
[2023-01-03] MEDS: ipratropium/albuterol 3ml nebule NEB SCH (18:49)
[2023-01-03] MEDS ORDERED: acetaminophen 325mg/10.15ml oral unit dose solution PO PRN ×2 (19:48)
[2023-01-03] MEDS ORDERED: fludrocortisone acetate 0.1mg tablet PO SCH (19:49)
[2023-01-03] MEDS ORDERED: DEXTROSE 15 GM of carb/4 tabs (each vial/BOTTLE has 4 tablets) PO PRN ×2 (19:49→19:50)
[2023-01-03] MEDS ORDERED: magnesium hydroxide 30ml (MOM) UD suspension PO PRN (19:50)
[2023-01-03] MEDS ORDERED: insulin Lispro (HumaLOG) vial - multi-dose SQ SCH (19:50)
[2023-01-03] MEDS: insulin glargine (Lantus) pen - multi-dose SQ SCH (20:52)
[2023-01-04] VITALS (27 sets, daily range): BP systolic 73–131; BP diastolic 34–64
[2023-01-04] MEDS: hydrocortisone sod succ/PF 100mg/2ml inj. IV SCH ×3 (00:07→16:02)
[2023-01-04] MEDS: piperacillin/tazo 3.375gm/50ml 50 ML IV SCH (00:07)
[2023-01-04 02:40] LABS: EOSINOPHILS % (AUTO) 0 % (0-6); MEAN CORPUSCULAR HEMOGLOBIN 30.9 PG (27.0-31.0); MONOCYTES # (AUTO) 2.7 X10'3 (0-0.9); RED BLOOD COUNT 2.18 X10'6 (4.70-6.10)
[2023-01-04 02:42] LABS: BASOPHILS % (AUTO) 0 % (0-1); LYMPHOCYTES % (AUTO) 5.3 % (21-51); MEAN CORPUSCULAR HGB CONC 32.2 g/dL (33.0-36.5); MEAN CORPUSCULAR VOLUME 95.8 FL (78-98); MONOCYTES % (AUTO) 13.8 % (2-12); NEUTROPHILS % (AUTO) 80.9 % (42-75); PLATELET COUNT 64 X10'3 (140-440); RED CELL DISTRIBUTION WIDTH 14.7 % (11.5-14.5); WHITE BLOOD COUNT 19.8 X10'3 (4.5-11.0)
[2023-01-04 02:51] LABS: APTT 34 SECONDS (22-32)
[2023-01-04 02:55] LABS: HEMATOCRIT 20.9 % (42.0-52.0); HEMOGLOBIN 6.7 g/dl (14.0-17.9)
[2023-01-04] MEDS: VANCOMYCIN LEVEL IV SCH (03:00)
[2023-01-04 03:05] LABS: ALANINE AMINOTRANSFERASE 561 U/L (12-78); ALBUMIN 2.8 G/DL (3.4-5.0); ALBUMIN/GLOBULIN RATIO 1.1 (1.1-1.5); ALKALINE PHOSPHATASE 79 IU/L (46-116); ANION GAP 13 (8-16); ASPARTATE AMINO TRANSFERASE 194 U/L (10-37); BILIRUBIN,TOTAL 1.4 MG/DL (0.1-1.0); BLOOD UREA NITROGEN 58 MG/DL (7-18); BUN/CREATININE RATIO 17.6 (5.4-32.0); CALCIUM 8.1 MG/DL (8.5-10.1); CHLORIDE 105 MMOL/L (99-107); CREATININE 3.29 MG/DL (0.60-1.10); GLUCOSE 290 MG/DL (70-104); MAGNESIUM 3.3 MG/DL (1.5-2.4); PHOSPHORUS 4.6 MG/DL (2.3-4.5); POTASSIUM 4.7 MMOL/L (3.5-5.1); SODIUM 142 MMOL/L (135-145); TOTAL CARBON DIOXIDE 24.3 MMOL/L (24-32); TOTAL PROTEIN 5.3 G/DL (6.4-8.2); VANCOMYCIN,RANDOM 18.5 UG/ML; eGFR 19 ML/MIN
[2023-01-04] MEDS: dexmedetomidine inj. 400 MCG in normal saline 100ml IV soln 96 ML IV SCH ×2 (03:50→16:08)
--- NOTE | 2023-01-04 06:18 | NUR ---
Problems reprioritized. Patient report given, questions answered & plan of care reviewed with GAUTAM Mendes.
[2023-01-04] MEDS: ipratropium/albuterol 3ml nebule NEB SCH ×4 (07:00→19:49)
[2023-01-04] MEDS: thiamine 100mg/ml 2ml inj. IV SCH (08:43)
[2023-01-04] MEDS: folic acid 1mg/0.2ml inj IV SCH (08:43)
[2023-01-04] MEDS: pantoprazole 40MG/NS 100ML BAG 100 ML IV SCH ×2 (08:43→20:13)
[2023-01-04] MEDS ORDERED: haloperidol lactate 5mg/ml inj IM ONE (08:55)
[2023-01-04] MEDS ORDERED: haloperidol lactate 5mg/ml inj IM PRN (10:35)
--- NOTE | 2023-01-04 13:25 | NUR ---
Reassessment: Per EMR pt extubated 01/03. Pt s/p BSS this morning with ST recs NPO as BSS unable to be fully performed. Per MD an NGT to be placed and pt to begin TF, see recs below. Per RN pt continues with IHD. LBM 01/03, documented with 300 mL stool output from rectal tube per I&O. Will continue to follow and adjust recommendations as appropriate. Recommendations: 1) Once NGT placed, continuous TF per MD using Nepro 1.8 at 45 ml/hr goal to provide 1080 ml volume/day, 1944 kcal, 785 ml water, and 87 g protein. 2) Additional water flush per physician; on HD 3) Routine Thiamine and Folic acid for EtOH hx; add routine MVI when available- MD weiss 12/28 4) PALB q Saturday/; Daily scaled weights 5) Monitor need for Phos binder 6) Bowel care per MD 7) Advance to renal CHO controlled diet as medically indicated once pt cleared for PO intake; continue NGTF until adequate PO intake is assured 8) DM education if appropriate, A1c 10.7% hx dementia though independent and cognizant per RN Addendum: 01/04/23 at [address] Amended: Links added.
[2023-01-04] MEDS: NORepinephrine 8mg/ 250ml NS 250 ML IV SCH (14:18)
[2023-01-04] MEDS ORDERED: ketamine 50mg/5ml syringe IV ONE (14:35)
[2023-01-04] MEDS ORDERED: DEXTROSE 15 GM of carb/4 tabs (each vial/BOTTLE has 4 tablets) NG PRN ×2 (17:16→17:17)
[2023-01-04] MEDS ORDERED: acetaminophen 325mg/10.15ml oral unit dose solution NG PRN ×2 (17:16)
[2023-01-04] MEDS ORDERED: magnesium hydroxide 30ml (MOM) UD suspension NG PRN (17:18)
[2023-01-04] MEDS ORDERED: fludrocortisone acetate 0.1mg tablet NG SCH (17:18)
--- NOTE | 2023-01-04 18:20 | NUR ---
Patient in room CICU 2013. I have received report from GAUTAM Mendes and had the opportunity to ask questions and assume patient care.
[2023-01-04 18:34] LABS: HEMATOCRIT 24.4 % (42.0-52.0); MEAN CORPUSCULAR HEMOGLOBIN 30.2 PG (27.0-31.0); MEAN CORPUSCULAR HGB CONC 32.6 g/dL (33.0-36.5); MEAN CORPUSCULAR VOLUME 92.6 FL (78-98); MEAN PLATELET VOLUME 9.8 FL (7.4-10.4); PLATELET COUNT 75 X10'3 (140-440); RED BLOOD COUNT 2.64 X10'6 (4.70-6.10); RED CELL DISTRIBUTION WIDTH 16.8 % (11.5-14.5); WHITE BLOOD COUNT 15.3 X10'3 (4.5-11.0)
[2023-01-04] MEDS: quetiapine 100mg tablet NG SCH (20:13)
[2023-01-04] MEDS: insulin glargine (Lantus) pen - multi-dose SQ SCH (21:12)
[2023-01-04] MEDS: insulin regular, human U-100 3ml vial - multi-dose SQ SCH (21:14)
[2023-01-05] VITALS (23 sets, daily range): BP systolic 86–134; BP diastolic 40–58
[2023-01-05] MEDS: hydrocortisone sod succ/PF 100mg/2ml inj. IV SCH ×2 (00:41→10:27)
[2023-01-05] MEDS: dexmedetomidine inj. 400 MCG in normal saline 100ml IV soln 96 ML IV SCH ×2 (02:06→13:05)
[2023-01-05] MEDS: insulin regular, human U-100 3ml vial - multi-dose SQ SCH ×3 (02:49→20:44)
[2023-01-05 03:40] LABS: BASOPHILS % (AUTO) 0.1 % (0-1); EOSINOPHILS % (AUTO) 0 % (0-6); HEMATOCRIT 25.3 % (42.0-52.0); HEMOGLOBIN 8.3 g/dl (14.0-17.9); LYMPHOCYTES # (AUTO) 0.8 X10'3 (1.1-4.8); LYMPHOCYTES % (AUTO) 5.9 % (21-51); MEAN CORPUSCULAR HGB CONC 32.7 g/dL (33.0-36.5); MEAN CORPUSCULAR VOLUME 91.6 FL (78-98); MEAN PLATELET VOLUME 9.4 FL (7.4-10.4); MONOCYTES # (AUTO) 1.6 X10'3 (0-0.9); MONOCYTES % (AUTO) 12.3 % (2-12); NEUTROPHILS # (AUTO) 10.8 X10'3 (1.8-7.7); NEUTROPHILS % (AUTO) 81.7 % (42-75); PLATELET COUNT 89 X10'3 (140-440); RED BLOOD COUNT 2.76 X10'6 (4.70-6.10); RED CELL DISTRIBUTION WIDTH 16.9 % (11.5-14.5); WHITE BLOOD COUNT 13.2 X10'3 (4.5-11.0)
[2023-01-05 03:46] LABS: APTT 30 SECONDS (22-32)
[2023-01-05 03:48] LABS: ALANINE AMINOTRANSFERASE 372 U/L (12-78); ALBUMIN 2.8 G/DL (3.4-5.0); ALBUMIN/GLOBULIN RATIO 1.2 (1.1-1.5); ALKALINE PHOSPHATASE 72 IU/L (46-116); ANION GAP 16 (8-16); ASPARTATE AMINO TRANSFERASE 74 U/L (10-37); BILIRUBIN,TOTAL 1.2 MG/DL (0.1-1.0); BLOOD UREA NITROGEN 98 MG/DL (7-18); BUN/CREATININE RATIO 18.7 (5.4-32.0); CALCIUM 7.9 MG/DL (8.5-10.1); CHLORIDE 105 MMOL/L (99-107); CREATININE 5.23 MG/DL (0.60-1.10); GLUCOSE 279 MG/DL (70-104); MAGNESIUM 3.5 MG/DL (1.5-2.4); PHOSPHORUS 5.9 MG/DL (2.3-4.5); POTASSIUM 4.7 MMOL/L (3.5-5.1); SODIUM 143 MMOL/L (135-145); TOTAL CARBON DIOXIDE 22.3 MMOL/L (24-32); TOTAL PROTEIN 5.2 G/DL (6.4-8.2); eGFR 11 ML/MIN
[2023-01-05 05:39] LABS: NUCLEATED RED BLOOD CELLS 2 /100WBC (0-0); TOTAL CELLS COUNTED 100
[2023-01-05 05:40] LABS: ANISOCYTOSIS 1+; PLATELET ESTIMATE DECREASED
[2023-01-05 05:43] LABS: BURR CELLS 2+; ELLIPTOCYTES 1+; POLYCHROMASIA 1+; SCHISTOCYTES 1+
[2023-01-05 05:44] LABS: LARGE PLATELETS FEW
--- NOTE | 2023-01-05 06:16 | NUR ---
Problems reprioritized. Patient report given, questions answered & plan of care reviewed with GAUTAM Mendes.
[2023-01-05] MEDS: ipratropium/albuterol 3ml nebule NEB SCH (07:00)
[2023-01-05] MEDS: NORepinephrine 8mg/ 250ml NS 250 ML IV SCH (07:10)
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
[2023-01-05] MEDS: pantoprazole 40MG/NS 100ML BAG 100 ML IV SCH ×2 (08:00→20:04)
[2023-01-05] MEDS: folic acid 1mg/0.2ml inj IV SCH (08:00)
[2023-01-05] MEDS ORDERED: heparin 1,000 units/ml 10ml inj HE ONE ×2 (08:00)
[2023-01-05] MEDS ORDERED: albumin (human) 25% 100ml IV 100 ML IV PRN (08:00)
[2023-01-05] MEDS ORDERED: EPOETIN ALFA-EPBX 20,000 UNIT/ML 1 ML MDV IV ONE (08:00)
[2023-01-05] MEDS: MULTIVIT-MIN/FERROUS GLUCONATE 9 MG/15 ML LIQUID NG SCH (08:00)
[2023-01-05] MEDS: thiamine 100mg/ml 2ml inj. IV SCH (08:00)
--- NOTE | 2023-01-05 08:21 | NUR ---
Pt's legs placed in restraints for continually kicking at staff. Pt unable to follow directions. Pt danger to self and others.
[2023-01-05] MEDS: quetiapine 100mg tablet NG SCH ×2 (10:27→20:04)
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
[2023-01-05] MEDS ORDERED: piperacillin/tazo 3.375gm/50ml 50 ML IV SCH (16:00)
[2023-01-05] MEDS: insulin glargine (Lantus) pen - multi-dose SQ SCH (20:47)
[2023-01-06] VITALS (23 sets, daily range): BP systolic 97–151; BP diastolic 39–60
[2023-01-06] MEDS: dexmedetomidine inj. 400 MCG in normal saline 100ml IV soln 96 ML IV SCH ×3 (01:12→15:10)
[2023-01-06] MEDS: NORepinephrine 8mg/ 250ml NS 250 ML IV SCH (01:30)
[2023-01-06] MEDS: insulin regular, human U-100 3ml vial - multi-dose SQ SCH ×3 (02:12→14:07)
[2023-01-06 03:26] LABS: BASOPHILS % (AUTO) 0.1 % (0-1); EOSINOPHILS # (AUTO) 0.1 X10'3 (0-0.9); EOSINOPHILS % (AUTO) 0.4 % (0-6); HEMATOCRIT 26.4 % (42.0-52.0); HEMOGLOBIN 8.9 g/dl (14.0-17.9); LYMPHOCYTES # (AUTO) 1.1 X10'3 (1.1-4.8); LYMPHOCYTES % (AUTO) 7.9 % (21-51); MEAN CORPUSCULAR HEMOGLOBIN 30.6 PG (27.0-31.0); MEAN CORPUSCULAR HGB CONC 33.6 g/dL (33.0-36.5); MEAN CORPUSCULAR VOLUME 90.9 FL (78-98); MEAN PLATELET VOLUME 9.2 FL (7.4-10.4); MONOCYTES # (AUTO) 2.4 X10'3 (0-0.9); MONOCYTES % (AUTO) 17.2 % (2-12); NEUTROPHILS # (AUTO) 10.3 X10'3 (1.8-7.7); NEUTROPHILS % (AUTO) 74.4 % (42-75); PLATELET COUNT 134 X10'3 (140-440); RED BLOOD COUNT 2.91 X10'6 (4.70-6.10); RED CELL DISTRIBUTION WIDTH 16.4 % (11.5-14.5); WHITE BLOOD COUNT 13.9 X10'3 (4.5-11.0)
[2023-01-06 03:46] LABS: APTT 25 SECONDS (22-32)
[2023-01-06 03:55] LABS: ALANINE AMINOTRANSFERASE 265 U/L (12-78); ALBUMIN 2.6 G/DL (3.4-5.0); ALKALINE PHOSPHATASE 141 IU/L (46-116); ANION GAP 15 (8-16); ASPARTATE AMINO TRANSFERASE 45 U/L (10-37); BLOOD UREA NITROGEN 67 MG/DL (7-18); BUN/CREATININE RATIO 17.6 (5.4-32.0); CALCIUM 7.6 MG/DL (8.5-10.1); CHLORIDE 104 MMOL/L (99-107); CREATININE 3.81 MG/DL (0.60-1.10); GLUCOSE 241 MG/DL (70-104); MAGNESIUM 2.7 MG/DL (1.5-2.4); POTASSIUM 3.6 MMOL/L (3.5-5.1); SODIUM 144 MMOL/L (135-145); TOTAL PROTEIN 5.1 G/DL (6.4-8.2); eGFR 16 ML/MIN
[2023-01-06 05:38] LABS: ANISOCYTOSIS 1+; PLATELET ESTIMATE DECREASED; POLYCHROMASIA 1+; TOTAL CELLS COUNTED 100
[2023-01-06 05:39] LABS: BURR CELLS 2+; ELLIPTOCYTES 1+
[2023-01-06 05:40] LABS: LARGE PLATELETS FEW; SCHISTOCYTES 1+
[2023-01-06] MEDS: pantoprazole 40MG/NS 100ML BAG 100 ML IV SCH ×2 (08:07→20:00)
[2023-01-06] MEDS: quetiapine 100mg tablet NG SCH ×2 (08:07→20:04)
[2023-01-06] MEDS: MULTIVIT-MIN/FERROUS GLUCONATE 9 MG/15 ML LIQUID NG SCH (08:07)
[2023-01-06] MEDS: folic acid 1mg/0.2ml inj IV SCH (08:08)
[2023-01-06] MEDS: thiamine 100mg/ml 2ml inj. IV SCH (08:08)
--- NOTE | 2023-01-06 18:10 | NUR ---
Patient in room CICU 2014. I have received report from Porfirio FLOREZ and had the opportunity to ask questions and assume patient care.
--- NOTE | 2023-01-06 18:30 | NUR ---
Problems reprioritized. Patient report given, questions answered & plan of care reviewed with Kim FLOREZ.
--- NOTE | 2023-01-06 19:00 | NUR ---
Report called to receiving nurse Alvarez RN. Transferred via bed with all Belongings to room 2042 ICU. Special Issues communicated to receiving nurse Alvarez.
[2023-01-06] MEDS ORDERED: NORepinephrine inj. 32 MG in normal saline 250ml IV soln 218 ML IV SCH (19:35)
[2023-01-06] MEDS: insulin glargine (Lantus) pen - multi-dose SQ SCH (21:46)
[2023-01-07] VITALS (17 sets, daily range): BP systolic 97–142; BP diastolic 24–55
[2023-01-07 03:17] LABS: BASOPHILS % (AUTO) 0 % (0-1); EOSINOPHILS # (AUTO) 0.4 X10'3 (0-0.9); EOSINOPHILS % (AUTO) 2.5 % (0-6); HEMATOCRIT 28.5 % (42.0-52.0); HEMOGLOBIN 9.5 g/dl (14.0-17.9); LYMPHOCYTES # (AUTO) 1.3 X10'3 (1.1-4.8); LYMPHOCYTES % (AUTO) 9.2 % (21-51); MEAN CORPUSCULAR HEMOGLOBIN 30.5 PG (27.0-31.0); MEAN CORPUSCULAR HGB CONC 33.5 g/dL (33.0-36.5); MEAN PLATELET VOLUME 8.7 FL (7.4-10.4); MONOCYTES % (AUTO) 13.6 % (2-12); NEUTROPHILS # (AUTO) 10.9 X10'3 (1.8-7.7); NEUTROPHILS % (AUTO) 74.7 % (42-75); PLATELET COUNT 144 X10'3 (140-440); RED BLOOD COUNT 3.13 X10'6 (4.70-6.10); RED CELL DISTRIBUTION WIDTH 16.8 % (11.5-14.5); WHITE BLOOD COUNT 14.6 X10'3 (4.5-11.0)
[2023-01-07 03:23] LABS: APTT 28 SECONDS (22-32)
[2023-01-07 03:37] LABS: ALANINE AMINOTRANSFERASE 160 U/L (12-78); ALBUMIN 2.2 G/DL (3.4-5.0); ALBUMIN/GLOBULIN RATIO 0.9 (1.1-1.5); ALKALINE PHOSPHATASE 105 IU/L (46-116); ANION GAP 11 (8-16); ASPARTATE AMINO TRANSFERASE 31 U/L (10-37); BILIRUBIN,TOTAL 0.8 MG/DL (0.1-1.0); BLOOD UREA NITROGEN 90 MG/DL (7-18); BUN/CREATININE RATIO 15.9 (5.4-32.0); CALCIUM 7.8 MG/DL (8.5-10.1); CHLORIDE 106 MMOL/L (99-107); CREATININE 5.65 MG/DL (0.60-1.10); GLUCOSE 232 MG/DL (70-104); MAGNESIUM 2.9 MG/DL (1.5-2.4); PHOSPHORUS 5.6 MG/DL (2.3-4.5); SODIUM 143 MMOL/L (135-145); TOTAL CARBON DIOXIDE 26.4 MMOL/L (24-32); TOTAL PROTEIN 4.7 G/DL (6.4-8.2); eGFR 10 ML/MIN
--- NOTE | 2023-01-07 06:49 | NUR ---
Patient in room ICU 2041. I have received report from Kim FLOREZ and had the opportunity to ask questions and assume patient care.
[2023-01-07] MEDS: pantoprazole 40MG/NS 100ML BAG 100 ML IV SCH ×2 (07:14→20:18)
[2023-01-07] MEDS: thiamine 100mg/ml 2ml inj. IV SCH (07:16)
[2023-01-07] MEDS: MULTIVIT-MIN/FERROUS GLUCONATE 9 MG/15 ML LIQUID NG SCH (07:16)
[2023-01-07] MEDS: folic acid 1mg/0.2ml inj IV SCH (07:16)
[2023-01-07] MEDS: quetiapine 100mg tablet NG SCH ×2 (07:16→20:36)
[2023-01-07] MEDS: dexmedetomidine inj. 400 MCG in normal saline 100ml IV soln 96 ML IV SCH (07:17)
[2023-01-07] MEDS: insulin regular, human U-100 3ml vial - multi-dose SQ SCH ×3 (07:55→21:35)
[2023-01-07] MEDS ORDERED: midodrine 5mg tablet PO ONE (08:53)
[2023-01-07 08:54] LABS: ACANTHOCYTES 1+; ANISOCYTOSIS 1+; ELLIPTOCYTES 1+; PLATELET ESTIMATE NORMAL; TOTAL CELLS COUNTED 100
[2023-01-07] MEDS ORDERED: metoclopramide 5 mg/ml inj IV PRN (11:25)
--- NOTE | 2023-01-07 11:26 | NUR ---
Informed Dr. Mullins during rounds, pt just vomited 400ml, TF on hold. Dr. Mullins ordered reglan 10mg q6h prn. still okay with pt transferring to tele.
[2023-01-07] MEDS: midodrine 5mg tablet NG SCH ×2 (11:36→17:32)
[2023-01-07] MEDS ORDERED: midodrine 5mg tablet PO SCH (12:00)
--- NOTE | 2023-01-07 14:57 | NUR ---
Patient report given to Alina FLOREZ on ortho. Patient going to room 4010A. All belongings gathered. informed of transfer.
--- NOTE | 2023-01-07 19:14 | NUR ---
received report from Julianne FLOREZ. patient was txr to 4th floor around 1510pm. patient is stable came with restraints b/l upper because he is pulling out ng tube. has rectal tube. bruno and ng tube. patient failed swallow exam this am.
[2023-01-07] MEDS: insulin glargine (Lantus) pen - multi-dose SQ SCH (21:34)
[2023-01-08] MEDS: insulin regular, human U-100 3ml vial - multi-dose SQ SCH ×2 (02:17→21:28)
[2023-01-08 03:06] VITALS: BP 130/54
[2023-01-08 05:16] VITALS: BP 115/40
--- NOTE | 2023-01-08 06:18 | NUR ---
Problems reprioritized. Patient report given, questions answered & plan of care reviewed with GAUTAM Fuller.
[2023-01-08 07:07] LABS: BASOPHILS % (AUTO) 0.2 % (0-1); EOSINOPHILS # (AUTO) 0.1 X10'3 (0-0.9); EOSINOPHILS % (AUTO) 0.9 % (0-6); HEMATOCRIT 25.9 % (42.0-52.0); HEMOGLOBIN 8.5 g/dl (14.0-17.9); LYMPHOCYTES # (AUTO) 0.9 X10'3 (1.1-4.8); LYMPHOCYTES % (AUTO) 5.8 % (21-51); MEAN CORPUSCULAR HEMOGLOBIN 30.3 PG (27.0-31.0); MEAN CORPUSCULAR HGB CONC 32.9 g/dL (33.0-36.5); MEAN CORPUSCULAR VOLUME 92.1 FL (78-98); MEAN PLATELET VOLUME 8.9 FL (7.4-10.4); MONOCYTES # (AUTO) 1.6 X10'3 (0-0.9); NEUTROPHILS # (AUTO) 13.6 X10'3 (1.8-7.7); NEUTROPHILS % (AUTO) 83.1 % (42-75); PLATELET COUNT 132 X10'3 (140-440); RED BLOOD COUNT 2.81 X10'6 (4.70-6.10); RED CELL DISTRIBUTION WIDTH 16.6 % (11.5-14.5); WHITE BLOOD COUNT 16.4 X10'3 (4.5-11.0)
[2023-01-08 07:17] LABS: APTT 28 SECONDS (22-32)
[2023-01-08 07:28] LABS: ALANINE AMINOTRANSFERASE 113 U/L (12-78); ALBUMIN 2.2 G/DL (3.4-5.0); ALBUMIN/GLOBULIN RATIO 0.8 (1.1-1.5); ALKALINE PHOSPHATASE 98 IU/L (46-116); ANION GAP 15 (8-16); ASPARTATE AMINO TRANSFERASE 25 U/L (10-37); BILIRUBIN,TOTAL 0.6 MG/DL (0.1-1.0); BLOOD UREA NITROGEN 118 MG/DL (7-18); CALCIUM 7.8 MG/DL (8.5-10.1); CHLORIDE 106 MMOL/L (99-107); CREATININE 7.88 MG/DL (0.60-1.10); GLUCOSE 52 MG/DL (70-104); MAGNESIUM 3.1 MG/DL (1.5-2.4); PHOSPHORUS 5.9 MG/DL (2.3-4.5); POTASSIUM 3.5 MMOL/L (3.5-5.1); SODIUM 146 MMOL/L (135-145); TOTAL CARBON DIOXIDE 25.1 MMOL/L (24-32); TOTAL PROTEIN 4.9 G/DL (6.4-8.2); eGFR 7 ML/MIN
[2023-01-08] MEDS: MULTIVIT-MIN/FERROUS GLUCONATE 9 MG/15 ML LIQUID NG SCH (07:59)
[2023-01-08] MEDS ORDERED: heparin 1,000 units/ml 10ml inj IV ONE (08:00)
[2023-01-08] MEDS: quetiapine 100mg tablet NG SCH ×2 (08:00→20:40)
[2023-01-08] MEDS ORDERED: EPOETIN ALFA-EPBX 20,000 UNIT/ML 1 ML MDV IV ONE (08:00)
[2023-01-08] MEDS ORDERED: heparin 1,000 units/ml 10ml inj HE ONE ×2 (08:00)
[2023-01-08] MEDS ORDERED: heparin 1,000unit/ml 10ml vial 10 ML IV ONE (08:00)
[2023-01-08] MEDS ORDERED: albumin (human) 25% 100ml IV 100 ML IV PRN (08:00)
[2023-01-08] MEDS: midodrine 5mg tablet NG SCH ×3 (08:01→20:41)
[2023-01-08] MEDS: thiamine 100mg/ml 2ml inj. IV SCH (08:01)
[2023-01-08] MEDS: pantoprazole 40MG/NS 100ML BAG 100 ML IV SCH (09:24)
--- NOTE | 2023-01-08 11:26 | NUR ---
F/u 01/08: Pt tolerating TF at goal GRV WNL advanced to pureed/thin diet w/ thrush on tongue per VOCATIONAL TRAINING TEACHER note this AM. TF held yesterday for vomiting episode though resumes w/ no signs of intolerance having routine stool output rectal tube -300ml per EMR. Phos 5.9mg/dl this AM; RITCHIE d/w RN regarding Phos binder w/ EN if MD agreeable since on HD. RITCHIE d/w RN recommends keeping NG until adequate PO trends can be assured given pt still AOx2 to avoid gaps in nutrition. Will continue to monitor. Recommendations: 1) Continue pureed/thin liquids diet per VOCATIONAL TRAINING TEACHER recs; assistance w/ meals encourage PO 2) Continuous TF per MD via NG using Nepro 1.8 at 45 ml/hr goal to provide 1080 ml volume/day, 1944 kcal, 785 ml water, and 87 g protein. 3) CONTINUE NG FEEDS UNTIL CONSISTENT ADEQUATE PO INTAKE ASSURED 4) Additional water flush per physician; on HD 5) Routine Thiamine and Folic acid for EtOH hx; add routine MVI when available- MD okayed 12/28 6) PALB q Saturday/; Daily scaled weights 7) Bowel care per MD; consider routine Phos binder w/ EN since on HD 8) Once adequate PO trends assured add renal/CHO controlled diet as medically indicated 9) DM education deferred, A1c 10.7% hx dementia w/ current ALOC Addendum: 01/08/23 at [address] Amended: Links added.
--- NOTE | 2023-01-08 11:26 | NUR ---
Patient in room ORTHO 4010A. I have received report from Karla FLOREZ and had the opportunity to ask questions and assume patient care.
--- NOTE | 2023-01-08 11:29 | NUR ---
patient is cooperative. he is more awake and alert today. passed his speech eval and they advanced his diet to pureed with thins. he is a feed. still in restraints because ng tube is still in. will reach out to md to see what he wants to do about NG tube.
--- NOTE | 2023-01-08 13:00 | NUR ---
PRESSURE ULCER EDUCATION: DEFINITION: A pressure ulcer is an area of skin that breaks down when you stay in one position too long. The constant pressure against the skin reduces the blood flow to that area and the affected tissue dies. CAUSES: "Being bedridden or in a wheelchair "Fragile skin "Having a chronic condition, such as diabetes or vascular disease "Inability to move certain parts of your body without assistance "Older age "Incontinence of urine or stool SYMPTOMS: "A reddened area that DOES NOT turn white when pressed on - this can be the beginning of a pressure ulcer "A blister, deep sore or a crater - these can be advanced pressure ulcers FIRST AID: "Relieve the pressure on this area "Keep the area clean and dry "Call your primary doctor if you see any of the above symptoms "DO NOT massage the area "DO NOT use a donut shaped or ring shaped pillow- these actually interfere with the blood flow and cause complications PREVENTION: "Check for pressure ulcers everyday "Change position at least every two hours to relieve pressure "Use items that help relieve pressure- pillows, sheepskin, foam padding, and powders. "Keep skin clean and dry "Eat healthy well balanced meals "Exercise daily IF YOU SEE ANY OF THESE SYMPTOMS WHILE IN THE HOSPITAL - TELL YOUR NURSE IMMEDIATELY. IF YOU SEE ANY OF THESE SYMPTOMS WHILE AT HOME OR HAVE ANY QUESTIONS OR CONCERNS ABOUT PRESSURE ULCERS - CALL YOUR PRIMARY DOCTOR IMMEDIATELY. Addendum: 01/08/23 at 1301 by Elida Wright LVN Amended: Links added.
[2023-01-08] MEDS ORDERED: fluconazole 150mg tablet PO ONE (14:00)
[2023-01-08] MEDS ORDERED: tuberculin, purif. prot. deriv. 5 units/0.1ml ID ONE (14:15)
--- NOTE | 2023-01-08 14:37 | NUR ---
per md okay to pull ng tube and discontinue the restraints. put medication order in for tongue fungus. patient is scheduled to get diaylsis today.
[2023-01-08 15:00] VITALS: BP 133/53
--- NOTE | 2023-01-08 15:45 | NUR ---
Accessed TDC, following procedure guidelines. Patient tolerated well.
--- NOTE | 2023-01-08 17:53 | NUR ---
gave patient tb skin test at 1745pm. right arm. PAR lot#[id number] exp 03/13.
--- NOTE | 2023-01-08 17:54 | NUR ---
patient went to dialysis around 1500pm. blood pressure has been stable.
--- NOTE | 2023-01-08 17:58 | NUR ---
per diaylsis nurse hold folic acid, diflucan, and midorine. the diaylsis team asked me to supervisor maintenance and custodians patient. I stated I do not feel comfortable since I have not been to the trainging class. nicole the consumer loan manager hooked patient up.
--- NOTE | 2023-01-08 18:56 | NUR ---
Problems reprioritized. Patient report given to Clara FLOREZ , questions answered & plan of care reviewed with .
[2023-01-08] MEDS ORDERED: haloperidol lactate 5mg/ml inj IM PRN (19:00)
--- NOTE | 2023-01-08 19:05 | NUR ---
took vitals after patient was just about done with dialysis. they took 3L off blood pressure was stable.
[2023-01-08 19:06] VITALS: BP 132/57
[2023-01-08] MEDS: thiamine 100mg tablet PO SCH (20:41)
[2023-01-08] MEDS: folic acid 1mg/0.2ml inj IV SCH (20:42)
[2023-01-08] MEDS: insulin glargine (Lantus) pen - multi-dose SQ SCH (21:00)
[2023-01-08 22:00] VITALS: BP 128/58
[2023-01-09 06:09] LABS: BASOPHILS % (AUTO) 0.1 % (0-1); EOSINOPHILS # (AUTO) 0.3 X10'3 (0-0.9); EOSINOPHILS % (AUTO) 1.9 % (0-6); HEMATOCRIT 28.1 % (42.0-52.0); HEMOGLOBIN 9.1 g/dl (14.0-17.9); LYMPHOCYTES # (AUTO) 0.8 X10'3 (1.1-4.8); MEAN CORPUSCULAR HEMOGLOBIN 29.7 PG (27.0-31.0); MEAN CORPUSCULAR HGB CONC 32.4 g/dL (33.0-36.5); MEAN CORPUSCULAR VOLUME 91.6 FL (78-98); MEAN PLATELET VOLUME 8.6 FL (7.4-10.4); MONOCYTES # (AUTO) 1.6 X10'3 (0-0.9); MONOCYTES % (AUTO) 10.8 % (2-12); NEUTROPHILS # (AUTO) 12.3 X10'3 (1.8-7.7); NEUTROPHILS % (AUTO) 82.2 % (42-75); PLATELET COUNT 121 X10'3 (140-440); RED BLOOD COUNT 3.07 X10'6 (4.70-6.10); RED CELL DISTRIBUTION WIDTH 16.6 % (11.5-14.5)
[2023-01-09 06:21] LABS: ALANINE AMINOTRANSFERASE 94 U/L (12-78); ALBUMIN 2.5 G/DL (3.4-5.0); ALBUMIN/GLOBULIN RATIO 0.8 (1.1-1.5); ALKALINE PHOSPHATASE 89 IU/L (46-116); ANION GAP 14 (8-16); ASPARTATE AMINO TRANSFERASE 24 U/L (10-37); BILIRUBIN,TOTAL 1.1 MG/DL (0.1-1.0); BLOOD UREA NITROGEN 59 MG/DL (7-18); BUN/CREATININE RATIO 10.8 (10.0-20.0); CALCIUM 8.2 MG/DL (8.5-10.1); CHLORIDE 103 MMOL/L (99-107); CREATININE 5.46 MG/DL (0.60-1.10); GLUCOSE 257 MG/DL (70-104); MAGNESIUM 2.6 MG/DL (1.5-2.4); PHOSPHORUS 5.3 MG/DL (2.3-4.5); POTASSIUM 4.8 MMOL/L (3.5-5.1); SODIUM 141 MMOL/L (135-145); TOTAL CARBON DIOXIDE 24.4 MMOL/L (24-32); TOTAL PROTEIN 5.8 G/DL (6.4-8.2); eGFR 10 ML/MIN
[2023-01-09 06:59] LABS: APTT 27 SECONDS (22-32)
--- NOTE | 2023-01-09 07:00 | NUR ---
Patient in room ORTHO 4010. I have received report from Osiris FLOREZ and had the opportunity to ask questions and assume patient care.
[2023-01-09] MEDS: folic acid 1mg/0.2ml inj IV SCH (07:44)
[2023-01-09] MEDS: midodrine 5mg tablet NG SCH ×3 (07:46→16:00)
[2023-01-09] MEDS: pantoprazole 40mg Tablet.DR PO SCH (07:48)
[2023-01-09] MEDS: thiamine 100mg tablet PO SCH ×2 (07:48→19:58)
[2023-01-09] MEDS: MULTIVIT-MIN/FERROUS GLUCONATE 9 MG/15 ML LIQUID NG SCH (07:49)
[2023-01-09 07:50] VITALS: BP 133/52
[2023-01-09] MEDS: quetiapine 100mg tablet NG SCH ×2 (07:53→19:58)
--- NOTE | 2023-01-09 10:07 | NUR ---
Paged Dr Junior: Héctor 4010A. Glucose 222 this morning, off tube feeds, no humalog ordered. Do agustin want me to proceed with humalin administration? Aspen [phone] Addendum: 01/09/23 at 1141 by Aspen Vogel RN Discussed insulin with Dr Junior in person, she said "I will take a look at it". This RN discussed with PT, stated he is a 2 person steady lift from chair to bed, wants OOB for 1 hour. This RN requested a chair alarm to be placed. Soon thereafter, this RN was called into room by LUZ Alcazar who stated pt sliding out of chair. GAUTAM Goldman and this RN called Norm PT to assist in lifting back to bed. Verbal orders to dc rectal tube. Addendum: 01/09/23 at 1142 by Aspen Vogel RN Chair alarm did not sound off when transferring from chair to bed. Pt unable to lift himself or feed himself; very weak.
--- NOTE | 2023-01-09 12:25 | NUR ---
Paged Dr Junior: Héctor 10A glucose 295, Lispro not on eMar. Sapen [phone].
[2023-01-09] MEDS ORDERED: DEXTROSE 15 GM of carb/4 tabs (each vial/BOTTLE has 4 tablets) PO PRN ×2 (12:30)
[2023-01-09] MEDS ORDERED: MESSAGE TO PHARMACY PO ONE (12:30)
[2023-01-09] MEDS ORDERED: dextrose 50%-water 50ml dispensing syringe IV PRN ×2 (12:30)
[2023-01-09] MEDS ORDERED: glucagon, human recombinant 1mg kit SUBCUT PRN (12:30)
[2023-01-09] MEDS: insulin Lispro (HumaLOG) vial - multi-dose SQ SCH (12:59)
--- NOTE | 2023-01-09 14:22 | NUR ---
Recvd message to call #[phone] (no name), this RN left a vm.
--- NOTE | 2023-01-09 14:45 | NUR ---
F/u: Pt s/p f/u BSS this morning with ST recs diet advancement to mechanical soft. Per EMR pt eating poorly, documented with 0-25% PO intake. Noted NGT was removed 01/08. TC to RN who states pt consumed 7 g CHO at breakfast this morning has been too sleepy for lunch after working with PT. D/w RN recommendation for NGT placement for TF given poor PO intake with increased needs r/t HD. RN states will see how pt does for dinner tonight and pass information along to MD. Will continue to follow closely. Recommendations: 1) Continue EC7 diet per ST recs 2) Assist with meals and encourage PO intake 3) NGT placement for continuous TF given poor PO intake; IF okay, Nepro 1.8 at 45 ml/hr goal to provide 1080 ml volume/day, 1944 kcal, 785 ml water, and 87 g protein; CONTINUE NGTF UNTIL CONSISTENT ADEQUATE PO INTAKE ASSURED 4) IF TF, additional water flush per physician given on HD 5) Routine Thiamine, Folic acid and MVM with iron for EtOH hx 6) Consider routine Phos binder with EN given HD and elevated serum Phos; pt currently with very minimal PO intake not providing a significant amount of phos 7) IF TF, PALB q Saturday/; Daily scaled weights 8) Bowel care per MD 9) DM education deferred, A1c 10.7% hx dementia with current ALOC Addendum: 01/09/23 at [address] Amended: Links added.
--- NOTE | 2023-01-09 16:09 | NUR ---
called admitting per [facility] shift hot car charger, they needed Catina ( updated #) and for signatures. Returned Catina, call @ #[phone] and she will be in tomorrow to visit and sign docs. Answered all questions satisfactorily, including CM involvement if necessary closer to dc. Addendum: 01/09/23 at 1651 by Aspen Vogel RN HD tech Dunia, informed HD to start early, will pass on to [facility] shift. Randa dietitian requested NG tube feeds to restart. This RN requested to see if he will wake this evening for lunch or dinner. Replaced stat lock for Ho and placed yankauer suction at bedside for emergencies. Rectal tube d/c, pt tolerated well.
[2023-01-09 16:35] VITALS: BP 122/54
[2023-01-09] MEDS: insulin glargine (Lantus) pen - multi-dose SQ SCH (21:00)
[2023-01-09 22:00] VITALS: BP 136/68
[2023-01-10 02:00] VITALS: BP 132/57
--- NOTE | 2023-01-10 05:42 | NUR ---
Pt. is awake drowsy able to feed self but requires assistance pt is easily tired. Able to swallow mashed/ jello foods without difficulty. Pt. has difficulty swallowing chopped foods ie facial grimace and holding throat. Pt. able to use I/S up to 500 ml. Pt. has a peripheral SL intact. Ho cath with mod amt yellow clear to cloudy urine. Skin is intact. Plan for PT balance and stance; Plan for family visit to today Tierra should sign admission papers.
[2023-01-10 06:05] LABS: BASOPHILS % (AUTO) 0.3 % (0-1); EOSINOPHILS # (AUTO) 0.3 X10'3 (0-0.9); EOSINOPHILS % (AUTO) 2.1 % (0-6); HEMATOCRIT 24.3 % (42.0-52.0); HEMOGLOBIN 7.9 g/dl (14.0-17.9); LYMPHOCYTES % (AUTO) 8.1 % (21-51); MEAN CORPUSCULAR HEMOGLOBIN 29.6 PG (27.0-31.0); MEAN CORPUSCULAR HGB CONC 32.4 g/dL (33.0-36.5); MEAN CORPUSCULAR VOLUME 91.4 FL (78-98); MEAN PLATELET VOLUME 8.9 FL (7.4-10.4); MONOCYTES # (AUTO) 1.6 X10'3 (0-0.9); MONOCYTES % (AUTO) 13.8 % (2-12); NEUTROPHILS # (AUTO) 9.1 X10'3 (1.8-7.7); NEUTROPHILS % (AUTO) 75.7 % (42-75); PLATELET COUNT 124 X10'3 (140-440); RED BLOOD COUNT 2.66 X10'6 (4.70-6.10); RED CELL DISTRIBUTION WIDTH 16.4 % (11.5-14.5)
[2023-01-10 06:20] LABS: APTT 28 SECONDS (22-32)
[2023-01-10 06:26] LABS: ALANINE AMINOTRANSFERASE 66 U/L (12-78); ALBUMIN 2.1 G/DL (3.4-5.0); ALBUMIN/GLOBULIN RATIO 0.7 (1.1-1.5); ALKALINE PHOSPHATASE 78 IU/L (46-116); ANION GAP 11 (8-16); ASPARTATE AMINO TRANSFERASE 23 U/L (10-37); BILIRUBIN,TOTAL 0.8 MG/DL (0.1-1.0); BLOOD UREA NITROGEN 74 MG/DL (7-18); CALCIUM 7.6 MG/DL (8.5-10.1); CHLORIDE 104 MMOL/L (99-107); CREATININE 7.39 MG/DL (0.60-1.10); GLUCOSE 234 MG/DL (70-104); MAGNESIUM 2.5 MG/DL (1.5-2.4); PHOSPHORUS 6.3 MG/DL (2.3-4.5); POTASSIUM 4.5 MMOL/L (3.5-5.1); SODIUM 140 MMOL/L (135-145); TOTAL CARBON DIOXIDE 24.6 MMOL/L (24-32); eGFR 7 ML/MIN
--- NOTE | 2023-01-10 06:33 | NUR ---
Patient in room ORTHO 4010. I have received report from Kylah and had the opportunity to ask questions and assume patient care.
[2023-01-10 07:00] VITALS: BP 133/61
[2023-01-10] MEDS: pantoprazole 40mg Tablet.DR PO SCH (07:54)
[2023-01-10] MEDS: folic acid 1mg tablet PO SCH (07:54)
[2023-01-10] MEDS: thiamine 100mg tablet PO SCH ×2 (07:54→19:29)
[2023-01-10] MEDS: midodrine 5mg tablet NG SCH ×3 (07:54→16:39)
[2023-01-10] MEDS: MULTIVIT-MIN/FERROUS GLUCONATE 9 MG/15 ML LIQUID NG SCH (07:54)
[2023-01-10] MEDS: quetiapine 100mg tablet NG SCH (07:54)
[2023-01-10] MEDS ORDERED: heparin 1,000 units/ml 10ml inj IV ONE (07:55)
[2023-01-10] MEDS ORDERED: albumin (human) 25% 100ml IV 100 ML IV PRN (07:55)
[2023-01-10] MEDS ORDERED: heparin 1,000unit/ml 10ml vial 10 ML IV ONE (07:55)
[2023-01-10] MEDS ORDERED: EPOETIN ALFA-EPBX 20,000 UNIT/ML 1 ML MDV IV ONE (08:00)
[2023-01-10] MEDS ORDERED: heparin 1,000 units/ml 10ml inj HE ONE ×2 (08:00)
[2023-01-10] MEDS: insulin Lispro (HumaLOG) vial - multi-dose SQ SCH ×2 (08:42→19:30)
--- NOTE | 2023-01-10 08:50 | NUR ---
Pt stated dialysis at 0849, pre-assessment completed. Pt is stable. VSS. 65.2kg weight pre dialysis.
[2023-01-10 11:00] VITALS: BP 141/63
--- NOTE | 2023-01-10 12:27 | NUR ---
Pt back to room from dialysis. Per engineering technical analyst, they took 700mls of fluid off with dialysis. Pt is stable condition. Pt talking with at bedside.
--- NOTE | 2023-01-10 13:43 | NUR ---
Today I precepted GAUTAM Goldman. I agree with the Physical Assessment conducted and charted by Susi. Addendum: 01/10/23 at 1344 by Dyana Caballero RN Amended: Links added.
[2023-01-10 15:30] LABS: % IRON SATURATION 11 % (11-46); IRON 21 UG/DL (53-167); TOTAL IRON BINDING CAPACITY 183 UG/DL (259-388)
[2023-01-10 15:47] LABS: HEP B CORE AB, TOT Positive (Negative)
--- NOTE | 2023-01-10 16:14 | NUR ---
Per Dr. Mackay, F/C dc'd.at 1614. will monitor for urine output
[2023-01-10 16:48] VITALS: BP 134/69
[2023-01-10 18:00] VITALS: BP 145/59
[2023-01-10] MEDS: QUEtiapine 25mg tablet NG SCH (19:29)
[2023-01-10] MEDS: insulin glargine (Lantus) pen - multi-dose SQ SCH (21:06)
[2023-01-10 22:29] VITALS: BP 132/62
[2023-01-11 02:34] VITALS: BP 148/59
[2023-01-11 07:00] VITALS: BP 141/60
[2023-01-11] MEDS: pantoprazole 40mg Tablet.DR PO SCH (08:47)
[2023-01-11] MEDS: CefTRIAXone 2gm/D5W 50ml BAG 50 ML IV SCH (08:48)
[2023-01-11] MEDS: folic acid 1mg tablet PO SCH (08:48)
[2023-01-11] MEDS: QUEtiapine 25mg tablet NG SCH (08:48)
[2023-01-11] MEDS: thiamine 100mg tablet PO SCH ×2 (08:48→19:08)
[2023-01-11] MEDS: midodrine 5mg tablet NG SCH ×3 (08:49→16:11)
[2023-01-11] MEDS: MULTIVIT-MIN/FERROUS GLUCONATE 9 MG/15 ML LIQUID NG SCH (08:49)
[2023-01-11 08:58] LABS: BASOPHILS # (AUTO) 0.1 X10'3 (0-0.2); BASOPHILS % (AUTO) 0.6 % (0-1); EOSINOPHILS # (AUTO) 0.1 X10'3 (0-0.9); EOSINOPHILS % (AUTO) 1.1 % (0-6); HEMATOCRIT 30.5 % (42.0-52.0); LYMPHOCYTES # (AUTO) 0.9 X10'3 (1.1-4.8); LYMPHOCYTES % (AUTO) 6.9 % (21-51); MEAN CORPUSCULAR HGB CONC 32.8 g/dL (33.0-36.5); MEAN CORPUSCULAR VOLUME 91.5 FL (78-98); MEAN PLATELET VOLUME 8.8 FL (7.4-10.4); MONOCYTES # (AUTO) 1.7 X10'3 (0-0.9); MONOCYTES % (AUTO) 12.6 % (2-12); NEUTROPHILS # (AUTO) 10.6 X10'3 (1.8-7.7); NEUTROPHILS % (AUTO) 78.8 % (42-75); PLATELET COUNT 157 X10'3 (140-440); RED BLOOD COUNT 3.34 X10'6 (4.70-6.10); RED CELL DISTRIBUTION WIDTH 16.3 % (11.5-14.5); WHITE BLOOD COUNT 13.5 X10'3 (4.5-11.0)
[2023-01-11] MEDS: insulin Lispro (HumaLOG) vial - multi-dose SQ SCH ×2 (09:04→19:12)
[2023-01-11 09:10] LABS: ALANINE AMINOTRANSFERASE 62 U/L (12-78); ALBUMIN 2.6 G/DL (3.4-5.0); ALBUMIN/GLOBULIN RATIO 0.7 (1.1-1.5); ALKALINE PHOSPHATASE 93 IU/L (46-116); ANION GAP 12 (8-16); ASPARTATE AMINO TRANSFERASE 27 U/L (10-37); BILIRUBIN,TOTAL 0.8 MG/DL (0.1-1.0); BLOOD UREA NITROGEN 37 MG/DL (7-18); BUN/CREATININE RATIO 6.7 (10.0-20.0); CALCIUM 8.3 MG/DL (8.5-10.1); CHLORIDE 103 MMOL/L (99-107); CREATININE 5.54 MG/DL (0.60-1.10); GLUCOSE 109 MG/DL (70-104); POTASSIUM 4.2 MMOL/L (3.5-5.1); SODIUM 141 MMOL/L (135-145); TOTAL CARBON DIOXIDE 26.4 MMOL/L (24-32); TOTAL PROTEIN 6.2 G/DL (6.4-8.2); eGFR 10 ML/MIN
[2023-01-11 11:00] VITALS: BP 117/57
--- NOTE | 2023-01-11 12:15 | NUR ---
Today I oriented GAUTAM Goldman. Upon review of the charted Physical Assessment I agree with charting except:bedside drying oven tender - no drying oven tender present; Cough is dry no sputum present; patient is chairfast instead of bedfast. Addendum: 01/11/23 at 1217 by Dyana Caballero RN Amended: Links added.
[2023-01-11] MEDS ORDERED: metoclopramide 5 mg/ml inj IV PRN (13:10)
[2023-01-11] MEDS ORDERED: QUEtiapine 25mg tablet PO PRN (13:10)
--- NOTE | 2023-01-11 14:39 | NUR ---
Reassessment: PO intake fluctuates however seems to have significantly improved today. Per EMR pt with average 42% PO intake 01/10 up to 100% PO intake at breakfast and lunch today. Discussed pt with CM who states patient's SO reports pt loves his SO cooking, CM to inform SO to bring in food from home to optimize PO intake IF PO intake declines again. IF pt continues eating well nutrition support not indicated, however pt would benefit from NGT placement for supplemental TF if pt unable to maintain adequate PO intake. LBM 01/11. Rectal tube discontinued 01/09 per EMR. Will continue to follow and make recommendations as appropriate. Recommendations: 1) Continue EC7 diet per ST recs; Discontinue CHO controlled diet restriction as pt is eating very poorly and BG range 65-109 mg/dL 01/11; consider adding renal/CHO controlled diet when pt is consistently with adequate PO intake and electrolytes become elevated 2) Assist with meals and encourage PO intake; allow food from home to optimize PO intake 3) IF PO intake declines, NGT placement for continuous TF; IF okay, Nepro 1.8 at 45 ml/hr goal to provide 1080 ml volume/day, 1944 kcal, 785 ml water, and 87 g protein; CONTINUE NGTF UNTIL CONSISTENT ADEQUATE PO INTAKE ASSURED 4) Routine Thiamine, Folic acid and MVM with iron for EtOH hx 5) Consider routine Phos binder with EN given HD and elevated serum Phos; pt currently with very minimal PO intake not providing a significant amount of phos 6) Scaled weights with HD 7) Bowel care per MD 8) DM education deferred, A1c 10.7% hx dementia with current ALOC Addendum: 01/11/23 at [address] Amended: Links added.
[2023-01-11 17:30] VITALS: BP 137/51
[2023-01-11] MEDS ORDERED: magnesium hydroxide 30ml (MOM) UD suspension PO PRN (18:02)
[2023-01-11] MEDS ORDERED: acetaminophen 325mg/10.15ml oral unit dose solution PO PRN (18:04)
--- NOTE | 2023-01-11 18:15 | NUR ---
Problems reprioritized. Patient report given, questions answered & plan of care reviewed with GAUTAM Dutta.
[2023-01-11 21:30] VITALS: BP 139/68
--- NOTE | 2023-01-11 22:46 | NUR ---
Fed patient a cup of yogurt and pudding due to low blood sugar of around 79. He stated that he felt better after eating the snacks.
[2023-01-11] MEDS: insulin glargine (Lantus) pen - multi-dose SQ SCH (23:29)
--- NOTE | 2023-01-11 23:57 | NUR ---
accucheck 91. lantus given per protcol. noted level down to 5 now. bed alarm and tabs active since pt has gotten out of bed multiple times to void or have BM. close to station. up to bsc with 1 assist.
[2023-01-12] MEDS ORDERED: LIDOcaine 2% 10ml TOPICAL JELLY (Urojet) MM ONE ×2 (04:25→23:45)
--- NOTE | 2023-01-12 04:26 | NUR ---
bladder scanned for 535ml. pt states it is painful. attempted to st cath x2. once with regular st cath and once with coude tip. unsuccessful. will continue to monitor patient for urine output and pt may need urologist to place bruno if unable to void completely.
[2023-01-12 06:00] VITALS: BP 142/58
--- NOTE | 2023-01-12 06:12 | NUR ---
able to get st cath with red coudet and urojet- very difficult to get into bladder. yielded 525ml clear yellow.
--- NOTE | 2023-01-12 07:00 | NUR ---
reported to days. noted pt resting after st cath. bed alarm active.
[2023-01-12] MEDS ORDERED: heparin 1,000 units/ml 10ml inj HE ONE ×2 (08:00)
[2023-01-12] MEDS ORDERED: heparin 1,000unit/ml 10ml vial 10 ML IV ONE (08:00)
[2023-01-12] MEDS ORDERED: albumin (human) 25% 100ml IV 100 ML IV PRN (08:00)
[2023-01-12] MEDS ORDERED: EPOETIN ALFA-EPBX 20,000 UNIT/ML 1 ML MDV IV ONE (08:00)
[2023-01-12] MEDS ORDERED: heparin 1,000 units/ml 10ml inj IV ONE (08:00)
[2023-01-12] MEDS: insulin Lispro (HumaLOG) vial - multi-dose SQ SCH ×2 (09:27→19:38)
[2023-01-12] MEDS: CefTRIAXone 2gm/D5W 50ml BAG 50 ML IV SCH (09:32)
[2023-01-12] MEDS: MULTIVIT-MIN/FERROUS GLUCONATE 9 MG/15 ML LIQUID PO SCH (09:32)
[2023-01-12] MEDS: folic acid 1mg tablet PO SCH (09:32)
[2023-01-12] MEDS: midodrine 5mg tablet NG SCH ×3 (09:32→16:49)
[2023-01-12] MEDS: thiamine 100mg tablet PO SCH ×2 (09:33→19:33)
[2023-01-12] MEDS: pantoprazole 40mg Tablet.DR PO SCH (09:42)
[2023-01-12 10:26] LABS: BASOPHILS # (AUTO) 0.1 X10'3 (0-0.2); BASOPHILS % (AUTO) 1.2 % (0-1); EOSINOPHILS # (AUTO) 0.1 X10'3 (0-0.9); EOSINOPHILS % (AUTO) 1.3 % (0-6); HEMATOCRIT 25.4 % (42.0-52.0); HEMOGLOBIN 8.3 g/dl (14.0-17.9); LYMPHOCYTES # (AUTO) 0.9 X10'3 (1.1-4.8); LYMPHOCYTES % (AUTO) 10.1 % (21-51); MEAN CORPUSCULAR HEMOGLOBIN 29.5 PG (27.0-31.0); MEAN CORPUSCULAR HGB CONC 32.7 g/dL (33.0-36.5); MEAN CORPUSCULAR VOLUME 90.2 FL (78-98); MEAN PLATELET VOLUME 8.3 FL (7.4-10.4); MONOCYTES # (AUTO) 0.9 X10'3 (0-0.9); MONOCYTES % (AUTO) 9.2 % (2-12); NEUTROPHILS # (AUTO) 7.3 X10'3 (1.8-7.7); NEUTROPHILS % (AUTO) 78.2 % (42-75); PLATELET COUNT 158 X10'3 (140-440); RED BLOOD COUNT 2.82 X10'6 (4.70-6.10); RED CELL DISTRIBUTION WIDTH 16.1 % (11.5-14.5); WHITE BLOOD COUNT 9.3 X10'3 (4.5-11.0)
[2023-01-12 10:47] LABS: ALANINE AMINOTRANSFERASE 49 U/L (12-78); ALBUMIN 2.3 G/DL (3.4-5.0); ALBUMIN/GLOBULIN RATIO 0.7 (1.1-1.5); ALKALINE PHOSPHATASE 82 IU/L (46-116); ANION GAP 14 (8-16); ASPARTATE AMINO TRANSFERASE 23 U/L (10-37); BILIRUBIN,TOTAL 0.5 MG/DL (0.1-1.0); BLOOD UREA NITROGEN 58 MG/DL (7-18); BUN/CREATININE RATIO 7.5 (10.0-20.0); CALCIUM 7.8 MG/DL (8.5-10.1); CHLORIDE 103 MMOL/L (99-107); CREATININE 7.75 MG/DL (0.60-1.10); GLUCOSE 298 MG/DL (70-104); POTASSIUM 4.3 MMOL/L (3.5-5.1); SODIUM 141 MMOL/L (135-145); TOTAL CARBON DIOXIDE 23.6 MMOL/L (24-32); TOTAL PROTEIN 5.7 G/DL (6.4-8.2); eGFR 7 ML/MIN
[2023-01-12 15:00] VITALS: BP 118/54
[2023-01-12 18:00] VITALS: BP 163/64
--- NOTE | 2023-01-12 19:10 | NUR ---
Problems reprioritized. Patient report given, questions answered & plan of care reviewed with GAUTAM Willams.
[2023-01-12] MEDS: acetaminophen 325mg/10.15ml oral unit dose solution PO PRN (19:33)
[2023-01-12 21:30] VITALS: BP 123/54
[2023-01-12] MEDS: insulin glargine (Lantus) pen - multi-dose SQ SCH (22:00)
[2023-01-13 02:17] VITALS: BP 138/59
--- NOTE | 2023-01-13 03:24 | NUR ---
pt unable to void. placed a coude 18f with sterile technique and urojet. pt tolerated well. 600ml flash with placement.
[2023-01-13 06:00] VITALS: BP 142/56
--- NOTE | 2023-01-13 06:38 | NUR ---
Patient in room ORTHO 4010. I have received report from Imer and had the opportunity to ask questions and assume patient care.
--- NOTE | 2023-01-13 06:39 | NUR ---
pt c/o pain in penis from catheter. reported to day RN pt may benefit from lubrication or pain medication. will discuss with patient and day RN. bed alarm and tabs active.
[2023-01-13] MEDS: midodrine 5mg tablet NG SCH ×4 (08:00→21:00)
[2023-01-13] MEDS: CefTRIAXone 2gm/D5W 50ml BAG 50 ML IV SCH (08:50)
[2023-01-13] MEDS: folic acid 1mg tablet PO SCH (08:52)
[2023-01-13] MEDS: pantoprazole 40mg Tablet.DR PO SCH (08:52)
[2023-01-13] MEDS: MULTIVIT-MIN/FERROUS GLUCONATE 9 MG/15 ML LIQUID PO SCH (08:52)
[2023-01-13] MEDS: thiamine 100mg tablet PO SCH ×2 (08:52→21:05)
[2023-01-13 10:00] VITALS: BP 127/51
[2023-01-13 10:27] LABS: BASOPHILS # (AUTO) 0.1 X10'3 (0-0.2); BASOPHILS % (AUTO) 0.9 % (0-1); EOSINOPHILS # (AUTO) 0.3 X10'3 (0-0.9); EOSINOPHILS % (AUTO) 2.5 % (0-6); HEMATOCRIT 26.8 % (42.0-52.0); HEMOGLOBIN 8.7 g/dl (14.0-17.9); LYMPHOCYTES # (AUTO) 1.1 X10'3 (1.1-4.8); LYMPHOCYTES % (AUTO) 9.7 % (21-51); MEAN CORPUSCULAR HEMOGLOBIN 30.1 PG (27.0-31.0); MEAN CORPUSCULAR HGB CONC 32.4 g/dL (33.0-36.5); MEAN PLATELET VOLUME 8.5 FL (7.4-10.4); MONOCYTES # (AUTO) 1.3 X10'3 (0-0.9); NEUTROPHILS # (AUTO) 8.6 X10'3 (1.8-7.7); NEUTROPHILS % (AUTO) 75.9 % (42-75); PLATELET COUNT 161 X10'3 (140-440); RED BLOOD COUNT 2.88 X10'6 (4.70-6.10); RED CELL DISTRIBUTION WIDTH 16.3 % (11.5-14.5); WHITE BLOOD COUNT 11.4 X10'3 (4.5-11.0)
[2023-01-13 10:33] LABS: ALANINE AMINOTRANSFERASE 46 U/L (12-78); ALBUMIN 2.6 G/DL (3.4-5.0); ALBUMIN/GLOBULIN RATIO 0.7 (1.1-1.5); ALKALINE PHOSPHATASE 89 IU/L (46-116); ANION GAP 12 (8-16); ASPARTATE AMINO TRANSFERASE 26 U/L (10-37); BILIRUBIN,TOTAL 0.6 MG/DL (0.1-1.0); BLOOD UREA NITROGEN 32 MG/DL (7-18); BUN/CREATININE RATIO 6.2 (10.0-20.0); CHLORIDE 103 MMOL/L (99-107); CREATININE 5.19 MG/DL (0.60-1.10); GLUCOSE 227 MG/DL (70-104); SODIUM 139 MMOL/L (135-145); TOTAL CARBON DIOXIDE 23.7 MMOL/L (24-32); TOTAL PROTEIN 6.2 G/DL (6.4-8.2); eGFR 11 ML/MIN
[2023-01-13 14:00] VITALS: BP 117/43
[2023-01-13] MEDS: insulin Lispro (HumaLOG) vial - multi-dose SQ SCH ×2 (14:01→19:14)
[2023-01-13] MEDS: polyvinyl alcohol ophthalmic drops 15ml bottle EACHEYE PRN (14:27)
[2023-01-13 18:30] VITALS: BP 140/52
--- NOTE | 2023-01-13 18:32 | NUR ---
Problems reprioritized. Patient report given, questions answered & plan of care reviewed with
[2023-01-13 18:42] LABS: OCCULT BLOOD STOOL NEGATIVE (Neg)
[2023-01-13] MEDS: insulin glargine (Lantus) pen - multi-dose SQ SCH (21:32)
[2023-01-13 22:00] VITALS: BP 156/59
[2023-01-14 02:00] VITALS: BP 154/44
[2023-01-14] MEDS: polyvinyl alcohol ophthalmic drops 15ml bottle EACHEYE PRN (05:35)
[2023-01-14 05:47] VITALS: BP 151/55
--- NOTE | 2023-01-14 06:45 | NUR ---
Patient in room ORTHO 4010. I have received report from January and had the opportunity to ask questions and assume patient care.
[2023-01-14] MEDS: midodrine 5mg tablet NG SCH ×3 (08:00→21:00)
[2023-01-14] MEDS: CefTRIAXone 2gm/D5W 50ml BAG 50 ML IV SCH (08:35)
[2023-01-14] MEDS: pantoprazole 40mg Tablet.DR PO SCH (08:36)
[2023-01-14] MEDS: MULTIVIT-MIN/FERROUS GLUCONATE 9 MG/15 ML LIQUID PO SCH (08:37)
[2023-01-14] MEDS: thiamine 100mg tablet PO SCH ×2 (08:37→19:26)
[2023-01-14] MEDS: folic acid 1mg tablet PO SCH (08:37)
[2023-01-14] MEDS: insulin Lispro (HumaLOG) vial - multi-dose SQ SCH ×3 (09:05→18:53)
[2023-01-14 10:02] LABS: BASOPHILS # (AUTO) 0.1 X10'3 (0-0.2); BASOPHILS % (AUTO) 0.8 % (0-1); EOSINOPHILS # (AUTO) 0.2 X10'3 (0-0.9); HEMATOCRIT 26.4 % (42.0-52.0); HEMOGLOBIN 8.6 g/dl (14.0-17.9); LYMPHOCYTES # (AUTO) 0.9 X10'3 (1.1-4.8); LYMPHOCYTES % (AUTO) 11.4 % (21-51); MEAN CORPUSCULAR HEMOGLOBIN 30.2 PG (27.0-31.0); MEAN CORPUSCULAR HGB CONC 32.6 g/dL (33.0-36.5); MEAN CORPUSCULAR VOLUME 92.4 FL (78-98); MEAN PLATELET VOLUME 8.2 FL (7.4-10.4); MONOCYTES # (AUTO) 0.8 X10'3 (0-0.9); MONOCYTES % (AUTO) 11.1 % (2-12); NEUTROPHILS # (AUTO) 5.6 X10'3 (1.8-7.7); NEUTROPHILS % (AUTO) 73.7 % (42-75); PLATELET COUNT 162 X10'3 (140-440); RED BLOOD COUNT 2.86 X10'6 (4.70-6.10); RED CELL DISTRIBUTION WIDTH 16.4 % (11.5-14.5); WHITE BLOOD COUNT 7.6 X10'3 (4.5-11.0)
[2023-01-14 10:10] LABS: ALANINE AMINOTRANSFERASE 37 U/L (12-78); ALBUMIN 2.5 G/DL (3.4-5.0); ALBUMIN/GLOBULIN RATIO 0.7 (1.1-1.5); ALKALINE PHOSPHATASE 83 IU/L (46-116); ANION GAP 12 (8-16); ASPARTATE AMINO TRANSFERASE 24 U/L (10-37); BILIRUBIN,TOTAL 0.4 MG/DL (0.1-1.0); BLOOD UREA NITROGEN 40 MG/DL (7-18); BUN/CREATININE RATIO 5.9 (10.0-20.0); CALCIUM 8.1 MG/DL (8.5-10.1); CHLORIDE 104 MMOL/L (99-107); SODIUM 142 MMOL/L (135-145); TOTAL CARBON DIOXIDE 26.1 MMOL/L (24-32); TOTAL PROTEIN 6.1 G/DL (6.4-8.2); eGFR 8 ML/MIN
[2023-01-14 10:46] LABS: GLUCOSE 224 MG/DL (70-104); POTASSIUM 3.7 MMOL/L (3.5-5.1)
[2023-01-14 11:00] VITALS: BP 124/45
--- NOTE | 2023-01-14 11:57 | NUR ---
F/u 01/14: Pt PO intake continues to fluctuate though overall improved ~73% avg past ~2.5 days per EMR partially meeting estimated needs. Would benefit from Nepro WL to assist meeting needs on HD; DO notified. LBM 01/13. Will continue to monitor. Recommendations: 1) Continue EC7/carb controlled diet per MD; consider renal restriction if PO increases closer to 100% meals 2) Nepro WL to assist meeting needs; pending physician verification in EMR 3) Assist with meals and encourage PO intake; allow food from home to optimize PO intake 4) Routine Thiamine, Folic acid and MVM with iron for EtOH hx 5) Consider routine Phos binder with EN given HD and elevated serum Phos LOS if physician agreeable 6) Scaled weights with HD 7) Bowel care per MD 8) DM education deferred, A1c 10.7% hx dementia with current ALOC Addendum: 01/14/23 at [address] Amended: Links added.
[2023-01-14] MEDS: NUT.TX.IMP.RENAL FXN,LAC-REDUC (Nepro) 237 ML VANILLA PO SCH (12:30)
--- NOTE | 2023-01-14 13:15 | NUR ---
Student documentation: [facility] student Kelley Elliott have reviewed and agree with all interventions, medication administration per hospital policy, and assessments performed and documented by the student.
[2023-01-14] MEDS ORDERED: LidoCAINE 2% Topical Jelly 11mL syringe TOP ONE (14:40)
--- NOTE | 2023-01-14 15:36 | NUR ---
Patient denied placement of bruno, advised of complications of urinary retention. Will continue to monitor patient and readdress catheter placement shortly.
[2023-01-14 18:00] VITALS: BP 156/71
--- NOTE | 2023-01-14 18:19 | NUR ---
Problems reprioritized. Patient report given, questions answered & plan of care reviewed with
[2023-01-14] MEDS: tamsulosin 0.4mg capsule PO SCH (19:26)
[2023-01-14] MEDS: acetaminophen 325mg/10.15ml oral unit dose solution PO PRN (19:55)
[2023-01-14] MEDS: insulin glargine (Lantus) pen - multi-dose SQ SCH (21:19)
[2023-01-14 22:00] VITALS: BP_SYST 141; BP_SYST 186; BP_DIAS 59; BP_DIAS 71
[2023-01-15 02:14] VITALS: BP 143/52
[2023-01-15 06:00] VITALS: BP 145/54
[2023-01-15 06:08] LABS: BASOPHILS # (AUTO) 0.1 X10'3 (0-0.2); BASOPHILS % (AUTO) 0.8 % (0-1); EOSINOPHILS # (AUTO) 0.4 X10'3 (0-0.9); EOSINOPHILS % (AUTO) 4.1 % (0-6); HEMOGLOBIN 8.6 g/dl (14.0-17.9); LYMPHOCYTES # (AUTO) 1.2 X10'3 (1.1-4.8); LYMPHOCYTES % (AUTO) 13.2 % (21-51); MEAN CORPUSCULAR HGB CONC 32.9 g/dL (33.0-36.5); MEAN CORPUSCULAR VOLUME 90.9 FL (78-98); MEAN PLATELET VOLUME 7.8 FL (7.4-10.4); MONOCYTES % (AUTO) 10.7 % (2-12); NEUTROPHILS # (AUTO) 6.6 X10'3 (1.8-7.7); NEUTROPHILS % (AUTO) 71.2 % (42-75); PLATELET COUNT 150 X10'3 (140-440); RED BLOOD COUNT 2.85 X10'6 (4.70-6.10); RED CELL DISTRIBUTION WIDTH 16.1 % (11.5-14.5); WHITE BLOOD COUNT 9.3 X10'3 (4.5-11.0)
[2023-01-15 06:23] LABS: ALANINE AMINOTRANSFERASE 36 U/L (12-78); ALBUMIN 2.4 G/DL (3.4-5.0); ALBUMIN/GLOBULIN RATIO 0.7 (1.1-1.5); ALKALINE PHOSPHATASE 88 IU/L (46-116); ANION GAP 11 (8-16); ASPARTATE AMINO TRANSFERASE 29 U/L (10-37); BILIRUBIN,TOTAL 0.4 MG/DL (0.1-1.0); BLOOD UREA NITROGEN 45 MG/DL (7-18); BUN/CREATININE RATIO 6.2 (10.0-20.0); CHLORIDE 107 MMOL/L (99-107); CREATININE 7.27 MG/DL (0.60-1.10); GLUCOSE 144 MG/DL (70-104); POTASSIUM 3.6 MMOL/L (3.5-5.1); SODIUM 143 MMOL/L (135-145); TOTAL CARBON DIOXIDE 24.8 MMOL/L (24-32); TOTAL PROTEIN 5.9 G/DL (6.4-8.2); eGFR 7 ML/MIN
--- NOTE | 2023-01-15 06:43 | NUR ---
Patient in room ORTHO 4010. I have received report from January and had the opportunity to ask questions and assume patient care.
[2023-01-15] MEDS ORDERED: EPOETIN ALFA-EPBX 20,000 UNIT/ML 1 ML MDV IV ONE (08:00)
[2023-01-15] MEDS ORDERED: heparin 1,000unit/ml 10ml vial 10 ML IV ONE (08:00)
[2023-01-15] MEDS ORDERED: heparin 1,000 units/ml 10ml inj IV ONE (08:00)
[2023-01-15] MEDS ORDERED: albumin (human) 25% 100ml IV 100 ML IV PRN (08:00)
[2023-01-15] MEDS ORDERED: heparin 1,000 units/ml 10ml inj HE ONE ×2 (08:00)
[2023-01-15] MEDS: midodrine 5mg tablet NG SCH ×3 (08:00→20:46)
[2023-01-15 10:00] VITALS: BP 119/56
[2023-01-15] MEDS: folic acid 1mg tablet PO SCH (11:22)
[2023-01-15] MEDS: pantoprazole 40mg Tablet.DR PO SCH (11:22)
[2023-01-15] MEDS: MULTIVIT-MIN/FERROUS GLUCONATE 9 MG/15 ML LIQUID PO SCH (11:22)
[2023-01-15] MEDS: CefTRIAXone 2gm/D5W 50ml BAG 50 ML IV SCH (11:22)
[2023-01-15] MEDS: thiamine 100mg tablet PO SCH ×2 (11:23→20:46)
[2023-01-15] MEDS: NUT.TX.IMP.RENAL FXN,LAC-REDUC (Nepro) 237 ML VANILLA PO SCH (12:26)
[2023-01-15] MEDS: insulin Lispro (HumaLOG) vial - multi-dose SQ SCH ×3 (12:50→20:52)
[2023-01-15 18:00] VITALS: BP 97/47
[2023-01-15] MEDS: tamsulosin 0.4mg capsule PO SCH (20:46)
[2023-01-15] MEDS: insulin glargine (Lantus) pen - multi-dose SQ SCH (20:53)
[2023-01-15 22:00] VITALS: BP 129/62
[2023-01-15 22:04] VITALS: BP 111/53
[2023-01-16 06:00] VITALS: BP 122/63
--- NOTE | 2023-01-16 06:45 | NUR ---
Patient in room ORTHO 4010. I have received report from Diane and had the opportunity to ask questions and assume patient care.
[2023-01-16 07:03] LABS: BASOPHILS % (AUTO) 0.5 % (0-1); EOSINOPHILS # (AUTO) 0.2 X10'3 (0-0.9); EOSINOPHILS % (AUTO) 2.3 % (0-6); HEMATOCRIT 24.2 % (42.0-52.0); HEMOGLOBIN 8.1 g/dl (14.0-17.9); LYMPHOCYTES # (AUTO) 1.4 X10'3 (1.1-4.8); LYMPHOCYTES % (AUTO) 14.6 % (21-51); MEAN CORPUSCULAR HGB CONC 33.4 g/dL (33.0-36.5); MEAN CORPUSCULAR VOLUME 92.7 FL (78-98); MEAN PLATELET VOLUME 8.3 FL (7.4-10.4); MONOCYTES # (AUTO) 1.2 X10'3 (0-0.9); MONOCYTES % (AUTO) 11.9 % (2-12); NEUTROPHILS # (AUTO) 6.9 X10'3 (1.8-7.7); NEUTROPHILS % (AUTO) 70.7 % (42-75); PLATELET COUNT 131 X10'3 (140-440); RED BLOOD COUNT 2.62 X10'6 (4.70-6.10); RED CELL DISTRIBUTION WIDTH 16.4 % (11.5-14.5); WHITE BLOOD COUNT 9.7 X10'3 (4.5-11.0)
[2023-01-16 07:24] LABS: ALANINE AMINOTRANSFERASE 41 U/L (12-78); ALBUMIN 2.4 G/DL (3.4-5.0); ALBUMIN/GLOBULIN RATIO 0.7 (1.1-1.5); ALKALINE PHOSPHATASE 93 IU/L (46-116); ANION GAP 9 (8-16); ASPARTATE AMINO TRANSFERASE 38 U/L (10-37); BILIRUBIN,TOTAL 0.4 MG/DL (0.1-1.0); BLOOD UREA NITROGEN 29 MG/DL (7-18); BUN/CREATININE RATIO 6.3 (10.0-20.0); CALCIUM 7.6 MG/DL (8.5-10.1); CHLORIDE 106 MMOL/L (99-107); CREATININE 4.62 MG/DL (0.60-1.10); GLUCOSE 134 MG/DL (70-104); POTASSIUM 3.5 MMOL/L (3.5-5.1); SODIUM 142 MMOL/L (135-145); TOTAL CARBON DIOXIDE 27.4 MMOL/L (24-32); TOTAL PROTEIN 5.9 G/DL (6.4-8.2); eGFR 13 ML/MIN
[2023-01-16] MEDS: MULTIVIT-MIN/FERROUS GLUCONATE 9 MG/15 ML LIQUID PO SCH (07:49)
[2023-01-16] MEDS: folic acid 1mg tablet PO SCH (07:50)
[2023-01-16] MEDS: pantoprazole 40mg Tablet.DR PO SCH (07:50)
[2023-01-16] MEDS: CefTRIAXone 2gm/D5W 50ml BAG 50 ML IV SCH (07:51)
[2023-01-16] MEDS: thiamine 100mg tablet PO SCH ×2 (07:51→21:40)
[2023-01-16] MEDS: midodrine 5mg tablet NG SCH ×3 (07:51→21:39)
[2023-01-16] MEDS: insulin Lispro (HumaLOG) vial - multi-dose SQ SCH ×3 (08:40→21:53)
[2023-01-16 10:34] VITALS: BP 107/45
[2023-01-16] MEDS: NUT.TX.IMP.RENAL FXN,LAC-REDUC (Nepro) 237 ML VANILLA PO SCH (12:49)
[2023-01-16 14:00] VITALS: BP 95/49
[2023-01-16 20:00] VITALS: BP 151/55
[2023-01-16] MEDS: tamsulosin 0.4mg capsule PO SCH (21:39)
[2023-01-16] MEDS: insulin glargine (Lantus) pen - multi-dose SQ SCH (21:54)
[2023-01-17 06:00] VITALS: BP 149/51
--- NOTE | 2023-01-17 06:00 | NUR ---
Patient in room ORTHO 4010. I have received report from GAUTAM Lara and had the opportunity to ask questions and assume patient care.
[2023-01-17 06:29] LABS: BASOPHILS # (AUTO) 0.1 X10'3 (0-0.2); BASOPHILS % (AUTO) 0.6 % (0-1); EOSINOPHILS # (AUTO) 0.4 X10'3 (0-0.9); EOSINOPHILS % (AUTO) 4.2 % (0-6); HEMATOCRIT 24.9 % (42.0-52.0); HEMOGLOBIN 8.2 g/dl (14.0-17.9); LYMPHOCYTES # (AUTO) 1.2 X10'3 (1.1-4.8); LYMPHOCYTES % (AUTO) 13.5 % (21-51); MEAN CORPUSCULAR HEMOGLOBIN 30.6 PG (27.0-31.0); MEAN CORPUSCULAR HGB CONC 33.2 g/dL (33.0-36.5); MEAN CORPUSCULAR VOLUME 92.3 FL (78-98); MEAN PLATELET VOLUME 8.6 FL (7.4-10.4); MONOCYTES % (AUTO) 11.7 % (2-12); NEUTROPHILS # (AUTO) 6.2 X10'3 (1.8-7.7); PLATELET COUNT 137 X10'3 (140-440); RED BLOOD COUNT 2.69 X10'6 (4.70-6.10); RED CELL DISTRIBUTION WIDTH 16.1 % (11.5-14.5); WHITE BLOOD COUNT 8.9 X10'3 (4.5-11.0)
[2023-01-17 06:35] LABS: ALANINE AMINOTRANSFERASE 31 U/L (12-78); ALBUMIN 2.4 G/DL (3.4-5.0); ALBUMIN/GLOBULIN RATIO 0.6 (1.1-1.5); ALKALINE PHOSPHATASE 102 IU/L (46-116); ANION GAP 10 (8-16); ASPARTATE AMINO TRANSFERASE 24 U/L (10-37); BILIRUBIN,TOTAL 0.4 MG/DL (0.1-1.0); BLOOD UREA NITROGEN 47 MG/DL (7-18); BUN/CREATININE RATIO 9.3 (10.0-20.0); CALCIUM 7.8 MG/DL (8.5-10.1); CHLORIDE 105 MMOL/L (99-107); CREATININE 5.06 MG/DL (0.60-1.10); GLUCOSE 165 MG/DL (70-104); POTASSIUM 3.4 MMOL/L (3.5-5.1); SODIUM 141 MMOL/L (135-145); TOTAL CARBON DIOXIDE 26.3 MMOL/L (24-32); TOTAL PROTEIN 6.1 G/DL (6.4-8.2); eGFR 11 ML/MIN
--- NOTE | 2023-01-17 07:40 | NUR ---
PAGER ID: [phone] MESSAGE: [id number] Héctor,S- Patient K is 3.4. Would like to replace? Pls advise? Jackie ADAMS [id number] TY
[2023-01-17] MEDS ORDERED: potassium Cl 20 mEq SR tablet PO PRN ×2 (07:45)
[2023-01-17] MEDS ORDERED: magnesium 4gm in 100ml NS 100 ML IV PRN (07:45)
[2023-01-17] MEDS ORDERED: potassium Cl 40MEQ/1/2NS 520ml 520 ML IV PRN (07:45)
[2023-01-17] MEDS: folic acid 1mg tablet PO SCH (07:52)
[2023-01-17] MEDS: pantoprazole 40mg Tablet.DR PO SCH (07:52)
[2023-01-17] MEDS: thiamine 100mg tablet PO SCH (07:52)
[2023-01-17] MEDS: MULTIVIT-MIN/FERROUS GLUCONATE 9 MG/15 ML LIQUID PO SCH (07:52)
[2023-01-17] MEDS: midodrine 5mg tablet NG SCH (07:52)
[2023-01-17] MEDS ORDERED: heparin 1,000 units/ml 10ml inj IV ONE (08:00)
[2023-01-17] MEDS ORDERED: K and/or MAG REPLACEMENT MC SCH (08:00)
[2023-01-17] MEDS ORDERED: heparin 1,000 units/ml 10ml inj HE ONE ×2 (08:00)
[2023-01-17] MEDS ORDERED: EPOETIN ALFA-EPBX 20,000 UNIT/ML 1 ML MDV IV ONE (08:00)
[2023-01-17] MEDS ORDERED: heparin 1,000unit/ml 10ml vial 10 ML IV ONE (08:00)
[2023-01-17] MEDS ORDERED: albumin (human) 25% 100ml IV 100 ML IV PRN (08:00)
[2023-01-17] MEDS: CefTRIAXone 2gm/D5W 50ml BAG 50 ML IV SCH (08:23)
--- NOTE | 2023-01-17 10:50 | NUR ---
Patient report to JOCELYNE Goode RN. Gave opportunity for questions to be asked and answers given. IV removed by RN, patient belongings were gathered. Patient was alert and appropriate for transfer. Patient left with Teresa cargo and personnel. Patient was notified of transfer.
--- NOTE | 2023-01-17 11:00 | NUR ---
ROLLING MILL PLUGGER documentation: I have reviewed and agree with all interventions, assessments performed and documented by Jackie Beltran LVN.
== END 2023-01-17 11:00 | DRG 870 ==
LOC: ER 14:51 → ED HOLD 17:45 → CICU 2S 19:45 → ICU 2S 01-06 19:22 → ORTHO 4S 01-07 15:19
PROVIDERS: ADMIT Internal Medicine Critical Care Medicine; ATTEND Internal Medicine Critical Care Medicine
PROC: 5A1955Z Respiratory Ventilation, Greater than 96 Consecutive Hours (ICD-10-PCS; principal; 2022-12-27)
PROC: 0BH17EZ Insertion of Endotracheal Airway into Trachea, Via Natural or Artificial Opening (ICD-10-PCS; 2022-12-27)
PROC: 5A1D70Z Performance of Urinary Filtration, Intermittent, Less than 6 Hours Per Day (ICD-10-PCS; 2022-12-27)
PROC: 02HV33Z Insertion of Infusion Device into Superior Vena Cava, Percutaneous Approach (ICD-10-PCS; 2022-12-27)
PROC: 06HY33Z Insertion of Infusion Device into Lower Vein, Percutaneous Approach (ICD-10-PCS; 2022-12-27)
PROC: B54BZZA Ultrasonography of Right Lower Extremity Veins, Guidance (ICD-10-PCS; 2022-12-27)
PROC: 5A1D90Z Performance of Urinary Filtration, Continuous, Greater than 18 hours Per Day (ICD-10-PCS; 2022-12-28)
PROC: 5A1D90Z Performance of Urinary Filtration, Continuous, Greater than 18 hours Per Day (ICD-10-PCS; 2022-12-29)
PROC: 04HY32Z Insertion of Monitoring Device into Lower Artery, Percutaneous Approach (ICD-10-PCS; 2022-12-29)
PROC: 5A1D90Z Performance of Urinary Filtration, Continuous, Greater than 18 hours Per Day (ICD-10-PCS; 2022-12-30)
PROC: 5A1D90Z Performance of Urinary Filtration, Continuous, Greater than 18 hours Per Day (ICD-10-PCS; 2022-12-31)
PROC: 30233N1 Transfusion of Nonautologous Red Blood Cells into Peripheral Vein, Percutaneous Approach (ICD-10-PCS; 2022-12-31)
PROC: 0JH63XZ Insertion of Tunneled Vascular Access Device into Chest Subcutaneous Tissue and Fascia, Percutaneous Approach (ICD-10-PCS; 2023-01-01)
PROC: 02HV33Z Insertion of Infusion Device into Superior Vena Cava, Percutaneous Approach (ICD-10-PCS; 2023-01-01)
PROC: B548ZZA Ultrasonography of Superior Vena Cava, Guidance (ICD-10-PCS; 2023-01-01)
PROC: B5181ZA Fluoroscopy of Superior Vena Cava using Low Osmolar Contrast, Guidance (ICD-10-PCS; 2023-01-01)
PROC: 5A1D90Z Performance of Urinary Filtration, Continuous, Greater than 18 hours Per Day (ICD-10-PCS; 2023-01-01)
PROC: 5A1D90Z Performance of Urinary Filtration, Continuous, Greater than 18 hours Per Day (ICD-10-PCS; 2023-01-02)
PROC: 5A1D90Z Performance of Urinary Filtration, Continuous, Greater than 18 hours Per Day (ICD-10-PCS; 2023-01-03)
PROC: 5A1D70Z Performance of Urinary Filtration, Intermittent, Less than 6 Hours Per Day (ICD-10-PCS; 2023-01-05)
PROC: 5A1D70Z Performance of Urinary Filtration, Intermittent, Less than 6 Hours Per Day (ICD-10-PCS; 2023-01-10)
PROC: 5A1D70Z Performance of Urinary Filtration, Intermittent, Less than 6 Hours Per Day (ICD-10-PCS; 2023-01-12)
PROC: 5A1D70Z Performance of Urinary Filtration, Intermittent, Less than 6 Hours Per Day (ICD-10-PCS; 2023-01-15)
DX: A41.9 Sepsis, unspecified organism (principal); G93.41 Metabolic encephalopathy; J18.9 Pneumonia, unspecified organism; K72.00 Acute and subacute hepatic failure without coma; J96.01 Acute respiratory failure with hypoxia; R65.21 Severe sepsis with septic shock; N17.9 Acute kidney failure, unspecified; E87.20 Acidosis, unspecified; E87.3 Alkalosis; R44.3 Hallucinations, unspecified; Z99.11 Dependence on respirator [ventilator] status; F03.911 Unspecified dementia, unspecified severity, with agitation; Z66 Do not resuscitate; D64.9 Anemia, unspecified; D69.59 Other secondary thrombocytopenia; R68.0 Hypothermia, not associated with low environmental temperature; E78.5 Hyperlipidemia, unspecified; N40.1 Benign prostatic hyperplasia with lower urinary tract symptoms; H04.123 Dry eye syndrome of bilateral lacrimal glands; R33.8 Other retention of urine; E11.65 Type 2 diabetes mellitus with hyperglycemia; F17.210 Nicotine dependence, cigarettes, uncomplicated; I11.0 Hypertensive heart disease with heart failure; I35.2 Nonrheumatic aortic (valve) stenosis with insufficiency; I49.5 Sick sinus syndrome; I50.9 Heart failure, unspecified; Z78.1 Physical restraint status; Z79.4 Long term (current) use of insulin; Z86.73 Personal history of transient ischemic attack (TIA), and cerebral infarction without residual deficits; Z79.899 Other long term (current) drug therapy
CPT/HCPCS: 36415; 36430; 36558; 36600; 71045; 71250; 74018; 74176; 76770; 76937; 77001; 80053; 80069; 80076; 80202; 80305; 80320; 81001; 82272; 82550; 82570; 82728; 82803; 82810; 82948; 83036; 83540; 83550; 83605; 83735; 83874; 83880; 83930; 83935; 84100; 84134; 84145; 84156; 84300; 84443; 84478; 84484; 85007; 85008; 85018; 85025; 85027; 85379; 85610; 85730; 86140; 86704; 86706; 86885; 86900; 86901; 86920; 87040; 87070; 87081; 87207; 87340; 90935; 92508; 92616; 93005; 93308; 94002; 94003; 94640; 94760; 94799; 97110; 97116; 97161; 97530; 99291; 99292; A4333; A4340; A4349; A4615; A6213; A6250; A6258; A6402; A6449; A9270; A9900; C1750; C1751; C1769; C1894; C9113; E1594; G0378; J0330; J0610; J0696; J1630; J1644; J1720; J1815; J2060; J2370; J2543; J2704; J2765; J2930; J3010; J3370; J3411; J3475; J3480; J3490; J7030; J7040; J7050; J7060; P9016; P9045; P9047; Q4081; Q9967

== ENCOUNTER 2023-01-18 07:23 | Emergency (ER) | payer OTHER, BC ==
[~2023-01-18] VITALS: Ht 165.1 cm; Wt 59.1 kg
[~2023-01-18 07:23] MED LIST changes: -METF-900 PO
[2023-01-18 08:15] LABS: BASOPHILS % (AUTO) 0.6 % (0-1); EOSINOPHILS # (AUTO) 0.2 X10'3 (0-0.9); EOSINOPHILS % (AUTO) 4.3 % (0-6); HEMATOCRIT 26.9 % (42.0-52.0); HEMOGLOBIN 8.8 g/dl (14.0-17.9); LYMPHOCYTES % (AUTO) 18.2 % (21-51); MEAN CORPUSCULAR HEMOGLOBIN 29.5 PG (27.0-31.0); MEAN CORPUSCULAR HGB CONC 32.9 g/dL (33.0-36.5); MEAN CORPUSCULAR VOLUME 89.9 FL (78-98); MEAN PLATELET VOLUME 7.9 FL (7.4-10.4); MONOCYTES # (AUTO) 0.6 X10'3 (0-0.9); MONOCYTES % (AUTO) 11.3 % (2-12); NEUTROPHILS # (AUTO) 3.7 X10'3 (1.8-7.7); NEUTROPHILS % (AUTO) 65.6 % (42-75); PLATELET COUNT 136 X10'3 (140-440); RED BLOOD COUNT 2.99 X10'6 (4.70-6.10); RED CELL DISTRIBUTION WIDTH 16.3 % (11.5-14.5); WHITE BLOOD COUNT 5.6 X10'3 (4.5-11.0)
[2023-01-18 08:30] LABS: ALANINE AMINOTRANSFERASE 41 U/L (12-78); ALBUMIN 2.5 G/DL (3.4-5.0); ALBUMIN/GLOBULIN RATIO 0.7 (1.1-1.5); ALKALINE PHOSPHATASE 112 IU/L (46-116); ANION GAP 7 (8-16); ASPARTATE AMINO TRANSFERASE 39 U/L (10-37); BILIRUBIN,TOTAL 0.3 MG/DL (0.1-1.0); BLOOD UREA NITROGEN 26 MG/DL (7-18); BUN/CREATININE RATIO 7.5 (10.0-20.0); CALCIUM 7.7 MG/DL (8.5-10.1); CHLORIDE 98 MMOL/L (99-107); CREATININE 3.47 MG/DL (0.60-1.10); GLUCOSE 358 MG/DL (70-104); LIPASE 354 U/L (73-393); POTASSIUM 3.6 MMOL/L (3.5-5.1); SODIUM 137 MMOL/L (135-145); TOTAL CARBON DIOXIDE 32.3 MMOL/L (24-32); TOTAL PROTEIN 6.3 G/DL (6.4-8.2); eGFR 17 ML/MIN
[2023-01-18] MEDS ORDERED: insulin regular, human 10 units/0.1 ml syringe IV ONE (08:35)
[2023-01-18 08:37] LABS: CLARITY,URINE CLOUDY (Clear); COLOR,URINE YELLOW (Yellow); GLUCOSE, URINE >=1000 mg/dl (Neg); KETONES,URINE NEGATIVE (Neg); LEUKOCYTE ESTERASE ,URINE SMALL (Neg); NITRITES, URINE NEGATIVE (Neg); OCCULT BLOOD,URINE LARGE (Neg); PROTEIN,URINE 30 mg/dl (Neg); UROBILINOGEN,URINE 0.2 E.U/dL (0.2-1.0)
[2023-01-18 08:45] LABS: UA COLLECTION TYPE FOLEY CATH
[2023-01-18 08:52] LABS: BACTERIA,URINE 1+ /HPF (Neg); RBC,URINE 50-100 /HPF (0-2)
[2023-01-18 08:54] LABS: FINE GRANULAR CAST 0-3 /LPF (NEGATIVE); SQUAMOUS EPITHELIAL CELL,UR FEW /LPF (FEW); WBC CLUMPS,URINE FEW /HPF (NEGATIVE)
--- NOTE | 2023-01-18 09:48 | NUR ---
PT BG 131.
[2023-01-18 09:51] VITALS: BP 111/52
--- NOTE | 2023-01-18 10:12 | NUR ---
RN CALLED REPORT TO BENITO FLOREZ AT [facility]. ERICKA CARGO CALLED FOR TRANSPORT.
--- NOTE | 2023-01-18 10:15 | NUR ---
ERICKA CARGO SHOULD ARRIVE BY [phone]
--- NOTE | 2023-01-18 11:37 | NUR ---
BG 153
== END 2023-01-18 11:41 | disposition home or self-care (01) ==
LOC: ER 07:24
DX: E11.65 Type 2 diabetes mellitus with hyperglycemia (principal); I10 Essential (primary) hypertension; K21.9 Gastro-esophageal reflux disease without esophagitis; N17.9 Acute kidney failure, unspecified
CPT/HCPCS: 36415; 71045; 80053; 81001; 82948; 83690; 85025; 87088; 96374; 99284; J1815